=== PATIENT | female | born 1955 | race Hispanic/Latino ===

== ENCOUNTER 2018-11-08 17:59 | Inpatient (IN) | payer OTHER ==
--- NOTE | 2018-11-08 20:28 | RAD REPORT ---
EXAM DESCRIPTION: CT - Facial Bones W/ Mpr - 11/08/2018 8:15 pm CLINICAL HISTORY: Facial injury TECHNIQUE: Computed axial tomography of the face was obtained. Coronal and sagittal reconstruction w as performed. All CT scans are performed using dose optimization technique as appropriate and may include automated exposure control or mA/KV adjustment according to patient size. FINDINGS: A fracture is not seen. A TMJ dislocation is not noted. The globes are intact. Fluid this present within the sphenoid sinus IMPRESSION: Negative for a facial fracture. Acute sphenoid sinusitis
--- NOTE | 2018-11-08 20:33 | RAD REPORT ---
EXAM DESCRIPTION: CT - Head C Spine Mpr Wo Con - 11/08/2018 8:15 pm CLINICAL HISTORY: Head and neck injury status post fall. Head and neck pain COMPARISON: 2016 MRI cervical spine TECHNIQUE: Computed axial tomography of the head and cervical spine was obtained. Sagittal and coronal reconstruction was performed. All CT scans are performed using dose optimization technique as appropriate and may include automated exposure control or mA/KV adjustment according to patient size. FINDINGS: An intracranial bleed is not seen. The ventricles are normal in caliber. An extra-axial fl uid collection is not noted. A cervical fracture is not visualized. No dislocation is noted. Mild anterior subluxation C3 on C4 wi thout significant change IMPRESSION: No acute intracranial abnormality is seen. A cervical fracture is not visualized. If the patient continues to have symptoms to suggest intracra nial /spinal cord pathology then MRI would be recommended
--- NOTE | 2018-11-08 21:03 | RAD REPORT ---
EXAM DESCRIPTION: RAD - Knee Right 3 View - 11/08/2018 8:53 pm CLINICAL HISTORY: Right knee pain FINDINGS: No fracture or dislocation is seen. The bones are osteoporotic mild to moderate osteoarthr itis. Edema is present within the soft tissues If the patient continues have symptoms to suggest an occult fracture, ligamentous or meniscal injury then an MRI would be recommended.
[2018-11-08 21:15] LABS: Absolute Lymphocytes (CBC) 3.7 K/uL (0.7-4.9); Absolute Monocytes 1.5 K/uL (0.1-1.3); Absolute Neutrophil 7.5 K/uL (1.8-8.0); Basophils % 0.8 % (0-1.3); Eosinophils % 2.2 % (0-4.4); Hematocrit 39.8 % (36.0-45.0); Lymphocytes % 28.3 % (15.3-44.8); MPV 8.8 fL (7.6-11.3); Monocytes % 11.2 % (3.3-12.3); RBC Red Blood Cell Count 4.66 M/uL (3.86-4.86)
[2018-11-08] MEDS ORDERED: KETOROLAC 30 MG/ML INJ ONE (21:16)
[2018-11-08 21:25] LABS: Protime INR 1.08
[2018-11-08 21:45] LABS: ALT/SGPT 60 U/L (12-78); AST/SGOT 54 U/L (15-37); Albumin 3.7 g/dL (3.4-5.0); Alkaline Phosphatase 116 U/L (45-117); BUN Blood Urea Nitrogen 20 mg/dL (7-18); Bicarbonate 28 mmol/L (21-32); Bilirubin Direct 0.3 mg/dL (0-0.2); Glucose Level 159 mg/dL (74-106); Magnesium 1.9 mg/dL (1.8-2.4); NT PRO-BNP 172 pg/mL (<125); Potassium 4.1 mmol/L (3.5-5.1); Protein, Total 7.9 g/dL (6.4-8.2); Sodium Level 136 mmol/L (136-145); Troponin (Emerg Dept Use Only) < 0.02 ng/mL (0.0-0.045)
--- NOTE | 2018-11-08 23:05 | ER ---
Nurse's Notes [facility] Name: Lucia Naidu Age: 63 yrs Sex: Female : 1955 Arrival Date: 11/08/2018 Time: 18:04 Bed 18 Private MD: Diagnosis: Sepsis due to Escherichia coli [E. coli];Cystitis, unspecified without hematuria Presentation: 11/08 18:23 Presenting complaint: Dizziness and frequent falls x 1 month. Pt reports dizziness is hb getting worse each day. Daughter noticed slurred speech and confusion that began 5 days ago. - arm drift, - facial droop, mild slurred speech noted. Transition of care: patient was not received from another setting of care. Onset of symptoms was October 11, 2018. Risk Assessment: Do you want to hurt yourself or someone else? Patient reports no desire to harm self or others. Care prior to arrival: None. 18:23 Method Of Arrival: Wheelchair hb 18:23 Acuity: BEN 3 hb 19:53 Initial Sepsis Screen: Does the patient meet any 2 criteria? No. Patient's initial ed1 sepsis screen is negative. Does the patient have a suspected source of infection? No. Patient's initial sepsis screen is negative. Historical: - Allergies: 18:26 Codeine; hb 18:26 Morphine; hb - Immunization history:: Adult Immunizations up to date. - Social history:: Smoking status: Patient/guardian denies using tobacco, Patient/guardian denies using alcohol, street drugs. - Ebola Screening: : No symptoms or risks identified at this time. - Family history:: not pertinent. - Hospitalizations: : No recent hospitalization is reported. Screenin:53 Abuse screen: Denies threats or abuse. Denies injuries from another. Nutritional ed1 screening: No deficits noted. Tuberculosis screening: No symptoms or risk factors identified. Fall Risk Fall in past 12 months (25 points). No secondary diagnosis (0 pts). IV access (20 points). Ambulatory Aid- Crutches/Cane/Walker (15 pts). Gait- Weak (10 pts.). Mental Status- Oriented to own ability (0 pts). Total Duffy Fall Scale indicates High Risk Score (45 or more points). Fall prevention measures have been instituted. Side Rails Up X 2 Frequent Obs/Assessments Occuring Family Present and informed to notify staff if the need to leave the bedside As available patient and family educated on Fall Prevention Program and Strategies. Assessment: 19:53 General: Appears in no apparent distress. Behavior is calm, cooperative. Pain: Denies ed1 pain. Neuro: Level of Consciousness is awake, alert, obeys commands, Oriented to person, place, time, situation, Glove Examiner are equal bilaterally Moves all extremities. Weakness Gait is weak. Speech is normal, Facial symmetry appears normal, Pupils are PERRLA, Reports dizziness, weakness. Cardiovascular: Denies chest pain, Heart tones S1 S2 present. Respiratory: Airway is patent Respiratory effort is even, unlabored, Respiratory pattern is regular, symmetrical, Breath sounds are clear bilaterally. Denies cough, shortness of breath. GI: No signs and/or symptoms were reported involving the gastrointestinal system. : No signs and/or symptoms were reported regarding the genitourinary system. EENT: No signs and/or symptoms were reported regarding the EENT system. Derm: Skin is intact, is healthy with good turgor, Skin is dry, Skin is normal, Skin temperature is warm Bruising that is green, yellow, on right knee. Musculoskeletal: Circulation, motion, and sensation intact. Range of motion: intact in all extremities, Swelling present in right knee. 21:07 Reassessment: Patient appears in no apparent distress at this time. Patient and/or ed1 family updated on plan of care and expected duration. Pain level reassessed. Patient is alert, oriented x 3, equal unlabored respirations, skin warm/dry/pink. Pt reports pain to right knee. 22:34 Reassessment: Patient appears in no apparent distress at this time. Patient and/or ed1 family updated on plan of care and expected duration. Pain level reassessed. Patient is alert, oriented x 3, equal unlabored respirations, skin warm/dry/pink. Patient states feeling better. Patient states symptoms have improved. 11/09 00:47 Reassessment: Patient appears in no apparent distress at this time. Patient and/or ed1 family updated on plan of care and expected duration. Pain level reassessed. Patient is alert, oriented x 3, equal unlabored respirations, skin warm/dry/pink. Patient states feeling better. Patient states symptoms have improved. 02:00 Reassessment: Patient appears in no apparent distress at this time. No changes from ed1 previously documented assessment. Patient and/or family updated on plan of care and expected duration. Pain level reassessed. Patient is alert, oriented x 3, equal unlabored respirations, skin warm/dry/pink. Vital Signs: 11/08 18:25 BP 118 / 67; Pulse 73; Resp 16; Temp 98.2; Pulse Ox 100% on R/A; Pain 0/10; hb 21:07 BP 91 / 63; Pulse 63; Resp 19; Pulse Ox 93% on R/A; Pain 6/10; ed1 22:34 Pulse 65; Resp 18; Pulse Ox 95% on R/A; Pain 3/10; ed1 03 00:07 BP 131 / 68; Pulse 70; Resp 16; Pulse Ox 99% on R/A; mt 00:47 BP 108 / 67; Pulse 64; Resp 18; Pulse Ox 95% on R/A; Pain 2/10; ed1 ED Course: 11/08 18:04 Patient arrived in ED. rg4 18:25 Triage completed. hb 18:25 Arm band placed on. hb 19:00 Maddie Rene MD is Attending Physician. ma2 19:00 Rebecca Cook RN is Primary Nurse. ed1 19:41 Inserted saline lock: 22 gauge in left forearm, using aseptic technique. Blood mt collected. 19:53 Patient has correct armband on for positive identification. Placed in gown. Bed in low ed1 position. Call light in reach. Side rails up X2. Adult w/ patient. equipment monitor phototypesetting on. Pulse ox on. NIBP on. Warm blanket given. 20:15 CT completed. Patient tolerated procedure well. Patient moved back from CT. pa 23:04 Yosvany Leos MD is Hospitalizing Provider. ma2 23:17 Chest Single View In Process Unspecified. EDMS 03 00:47 Awaiting bed assignment. ed1 00:47 No provider procedures requiring assistance completed. Patient admitted, IV remains in ed1 place. intact, No redness/swelling at site. 02:00 Resting quietly. Awaiting bed assignment. ed1 Administered Medications: 11/08 21:07 Drug: TORadol 30 mg Route: IVP; Site: left forearm; ed1 21:45 Follow up: Response: No adverse reaction; Pain is decreased ed1 23:11 Drug: NS 0.9% 1000 ml Route: IV; Rate: 1 bolus; Site: left forearm; ed1 11/09 02:01 Follow up: IV Status: Completed infusion; IV Intake: 1000ml ed1 11/08 23:11 Drug: Rocephin 1 grams Route: IV; Rate: calculated rate; Site: left forearm; ed1 23:45 Follow up: Response: No adverse reaction; IV Status: Completed infusion ed1 Intake: 11/09 02:01 IV: 1000ml; Total: 1000ml. ed1 Outcome: 11/08 23:05 Decision to Hospitalize by Provider. ma2 11/09 03:53 Admitted to Tele accompanied by nurse, family with patient, via wheelchair, room 403, ed1 with chart, Report called to REAL Pineda Condition: stable Discharge instructions given to patient, family, Instructed on the need for admit, Demonstrated understanding of instructions. 03:54 Patient left the ED. ed1 Signatures: Dispatcher [employer] EDRebecca Ly RN RN ed1 Tavia Rojas RN RN hb Garcia, Rubi 4 Lamont Christensen Moriah Maddie Collier MD MD ma2
--- NOTE | 2018-11-08 23:06 | EDPHYS ---
Physician Documentation [facility] Name: Lucia Naidu Age: 63 yrs Sex: Female : 1955 Arrival Date: 11/08/2018 Time: 18:04 Bed 18 Private MD: ED Physician Maddie Rene HPI: 11/08 21:49 This 63 yrs old Female presents to ER via Wheelchair with complaints of ma2 Altered Mental Status, Trouble Walking, General Weakness. 21:49 The patient presents with falls right leg weakness . Onset: The symptoms/episode ma2 began/occurred gradually, 2 week(s) ago. Possible causes: CVA or TIA. Associated signs and symptoms: Pertinent negatives: abdominal pain, blurred vision, chest pain, combativeness. Current symptoms: In the emergency department the patient's symptoms are unchanged from the initial presentation. The patient has not experienced similar symptoms in the past. Historical: - Allergies: 18:26 Codeine; hb 18:26 Morphine; hb - Immunization history:: Adult Immunizations up to date. - Social history:: Smoking status: Patient/guardian denies using tobacco, Patient/guardian denies using alcohol, street drugs. - Ebola Screening: : No symptoms or risks identified at this time. - Family history:: not pertinent. - Hospitalizations: : No recent hospitalization is reported. ROS: 21:49 Constitutional: Negative for fever, chills, and weight loss, Cardiovascular: Negative ma2 for chest pain, palpitations, and edema, Respiratory: Negative for shortness of breath, cough, wheezing, and pleuritic chest pain, Abdomen/GI: Negative for abdominal pain, nausea, diarrhea, and constipation. 21:49 Neuro: Positive for falls, possible right LE weakness . 21:49 All other systems are negative. Exam: 21:49 Constitutional: This is a well developed, well nourished patient who is awake, alert, ma2 and in no acute distress. Chest/axilla: Normal chest wall appearance and motion. Nontender with no deformity. No lesions are appreciated. Cardiovascular: Regular rate and rhythm with a normal S1 and S2. No gallops, murmurs, or rubs. Normal PMI, no JVD. No pulse deficits. Respiratory: Lungs have equal breath sounds bilaterally, clear to auscultation and percussion. No rales, rhonchi or wheezes noted. No increased work of breathing, no retractions or nasal flaring. Abdomen/GI: Soft, non-tender, with normal bowel sounds. No distension or tympany. No guarding or rebound. No evidence of tenderness throughout. MS/ Extremity: Pulses equal, no cyanosis. Neurovascular intact. Full, normal range of motion. Neuro: Awake and alert, GCS 15, oriented to person, place, time, and situation. Cranial nerves II-XII grossly intact. Motor strength 5/5 in all extremities. Sensory grossly intact. Cerebellar exam normal. Normal gait. 21:49 Skin: has abrasion to right knee and left elbow left shoulder . ma2 Vital Signs: 18:25 BP 118 / 67; Pulse 73; Resp 16; Temp 98.2; Pulse Ox 100% on R/A; Pain 0/10; hb 21:07 BP 91 / 63; Pulse 63; Resp 19; Pulse Ox 93% on R/A; Pain 6/10; ed1 22:34 Pulse 65; Resp 18; Pulse Ox 95% on R/A; Pain 3/10; ed1 03/08 00:07 BP 131 / 68; Pulse 70; Resp 16; Pulse Ox 99% on R/A; mt 00:47 BP 108 / 67; Pulse 64; Resp 18; Pulse Ox 95% on R/A; Pain 2/10; ed1 MDM: 03 19:00 Patient medically screened. ma2 21:49 Differential Diagnosis: CVA, electrolyte abnormality, hypoglycemia, pneumonia, UTI, ma2 volume depletion. 22:59 Data reviewed: vital signs, nurses notes. ma2 23:03 Counseling: I had a detailed discussion with the patient and/or guardian regarding: the dc2 historical points, exam findings, and any diagnostic results supporting the discharge/admit diagnosis, the presence of at least one elevated blood pressure reading (>120/80) during this emergency department visit, the need for further work-up and treatment in the hospital. Response to treatment: the patient's symptoms have markedly improved after treatment. ED course: has UTI SIRS discussed with dr. bryson . 11/08 20:03 Order name: Urine Dipstick--Ancillary (enter results) ag4 11/08 21:21 Order name: CBC with Automated Diff; Complete Time: 22:04 EDMS 11/08 21:26 Order name: Protime (+INR); Complete Time: 22:04 EDMS 11/08 21:45 Order name: Basic Metabolic Panel; Complete Time: 22:04 EDMS 11/08 21:45 Order name: Liver (Hepatic) Function; Complete Time: 22:04 EDMS 11/08 21:46 Order name: Troponin (Emerg Dept Use Only); Complete Time: 22:04 EDMS 11/08 21:46 Order name: NT PRO-BNP; Complete Time: 22:04 EDMS 11/08 20:29 Order name: CT; Complete Time: 22:04 EDMS 11/08 20:35 Order name: CT; Complete Time: 22:04 EDMS 11/08 21:04 Order name: RAD; Complete Time: 22:04 EDMS 11/08 21:46 Order name: Magnesium; Complete Time: 22:04 EDMS 11/08 23:14 Order name: Head C Spine Mpr Wo Con EDMS 11/08 23:49 Order name: Basic Metabolic Panel EDMS 11/08 23:49 Order name: Liver (Hepatic) Function EDMS 11/08 23:49 Order name: Troponin (Emerg Dept Use Only) EDMS 11/08 23:50 Order name: NT PRO-BNP EDMS 11/08 23:50 Order name: Magnesium EDMS 11/08 23:50 Order name: CBC with Automated Diff EDMS 11/08 23:50 Order name: Protime (+INR) EDMS 11/08 19:48 Order name: EKG; Complete Time: 19:49 ma2 11/08 19:48 Order name: Cardiac monitoring; Complete Time: 19:50 ma2 11/08 19:48 Order name: EKG - Nurse/Tech; Complete Time: 20:05 ma2 11/08 19:48 Order name: IV Saline Lock; Complete Time: 19:50 ma2 11/08 19:48 Order name: Labs collected and sent; Complete Time: 19:50 ma2 11/08 19:48 Order name: O2 Per Protocol; Complete Time: 19:50 ma2 11/08 19:48 Order name: O2 Sat Monitoring; Complete Time: 19:50 ma2 11/08 19:48 Order name: Urine Dipstick-Ancillary (obtain specimen); Complete Time: 20:09 ma2 11/08 23:14 Order name: Facial Bones W/ Mpr EDMS 11/08 23:15 Order name: Knee Right 3 View EDMS 11/08 23:17 Order name: Chest Single View EDMS Administered Medications: 21:07 Drug: TORadol 30 mg Route: IVP; Site: left forearm; ed1 21:45 Follow up: Response: No adverse reaction; Pain is decreased ed1 23:11 Drug: NS 0.9% 1000 ml Route: IV; Rate: 1 bolus; Site: left forearm; ed1 11/09 02:01 Follow up: IV Status: Completed infusion; IV Intake: 1000ml ed1 11/08 23:11 Drug: Rocephin 1 grams Route: IV; Rate: calculated rate; Site: left forearm; ed1 23:45 Follow up: Response: No adverse reaction; IV Status: Completed infusion ed1 Disposition: 11/08/18 23:05 Hospitalization ordered by Yosvany Bryson for Inpatient Admission. Preliminary diagnosis are Sepsis due to Escherichia coli [E. coli], Cystitis, unspecified without hematuria. - Bed requested for Telemetry/MedSurg (Inpatient). - Status is Inpatient Admission. ed1 - Condition is Stable. - Problem is new. - Symptoms are unchanged. UTI on Admission? Yes Signatures: Dispatcher [employer] EDMS Vania Joshi RN RN kl Riggs, Erika, RN RN ed1 Tavia Rojas RN RN hb Alzahri, Mohammad, MD MD ma2 Corrections: (The following items were deleted from the chart) 23:43 19:49 Head C Spine MPR Wo Con+CT.RAD.BRZ ordered. EDCA EDMS 23:45 19:49 Facial Bones W/ MPR+CT.RAD.BRZ ordered. EDMS EDMS 23:46 19:49 Chest Single View+RAD.RAD.BRZ ordered. EDMS EDMS 23:46 19:49 Knee Right 3 View+RAD.RAD.BRZ ordered. EDCA EDMS 23:52 19:49 BASIC METABOLIC PANEL+C.LAB.BRZ ordered. EDCA EDMS 23:52 19:49 PROBNP+C.LAB.BRZ ordered. EDCA EDMS 23:55 19:49 CBC+H.LAB.BRZ ordered. EDCA EDMS 23:55 19:49 HEPATIC FUNCTION+C.LAB.BRZ ordered. EDMS EDMS 23:55 19:49 MAGNESIUM+C.LAB.BRZ ordered. [facility] ED[facility] 23:55 19:49 PROTIME (+INR)+COAG.LAB.BRZ ordered. [facility] 23:55 19:49 TROPONIN (EMERG DEPT USE ONLY)+C.LAB.BRZ ordered. [facility] 11/09 03:10 11/08 23:05 Hospitalization Ordered by Yosvany Bryson MD for Inpatient Admission. kl Preliminary diagnosis is Sepsis due to Escherichia coli [E. coli]; Cystitis, unspecified without hematuria. Bed requested for Telemetry/MedSurg (Inpatient). Status is Inpatient Admission. Condition is Stable. Problem is new. Symptoms are unchanged. UTI on Admission? Yes. ma2 11/09 03:54 03:10 11/08/2018 23:05 Hospitalization Ordered by Yosvany Bryson MD for Inpatient ed1 Admission. Preliminary diagnosis is Sepsis due to Escherichia coli [E. coli]; Cystitis, unspecified without hematuria. Bed requested for Telemetry/MedSurg (Inpatient). Status is Inpatient Admission. Condition is Stable. Problem is new. Symptoms are unchanged. UTI on Admission? Yes. kl
[2018-11-08] MEDS ORDERED: CEFTRIAXONE/SWI 1gm 1 GM/10 ML SYR ONE (23:16)
[2018-11-08] MEDS ORDERED: NA CHLORIDE 0.9% 1,000 ML ONE (23:16)
[2018-11-08 23:57] LABS: Urine Blood 2+ (NEG); Urine Glucose 1+ (NEG); Urine Protein 2+ (NEG)
[2018-11-09] MEDS ORDERED: ONDANSETRON 4 MG/2 ML VIAL IV PRN (03:58)
[2018-11-09] MEDS: NA CHLORIDE 0.9% 1,000 ML IV SCH ×3 (04:42→20:30)
[2018-11-09 04:54] VITALS: BMI 40.1
[2018-11-09] MEDS ORDERED: KETOROLAC 30 MG/ML INJ IV ONE (05:06)
[2018-11-09] MEDS ORDERED: D50W 25 GM/50 ML SYRINGE IV PRN (05:13)
[2018-11-09] MEDS ORDERED: GLUCAGON 1 MG/VIAL IM PRN (05:13)
--- NOTE | 2018-11-09 05:19 | P.HP ---
Certification for Inpatient Patient admitted to: Observation With expected LOS: <2 Midnights Practitioner: I am a practitioner with admitting privileges, knowledge of patient current condition, hospital course, and medical plan of care. Services: Services provided to patient in accordance with Admission requirements found in Title 42 Section 412.3 of the Code of Federal Regulations Patient History Date of Service: 11/09/18 Reason for admission: UTI, acute renal injury History of Present Illness: Ms Naidu is a 63 years old woman with history of DM II, HTN, neuropathy, who has had recurrent falls for the last month. She has bruises in both elbows and knees. The patient states that she lose her balance. She has a walker at home, but use only her cane. She denied palpitations, chest pain or SOB prior to the fall. Yesterday, the daughter got concern because the patient had facial drop and slurred speech. At arrival to emergency, the patient did not have those symptoms, however, she was clinically dry. Lab work remarkable for elevated creatinine, leukocytosis, abnormal UA consistent with UTI. CT head shows no acute abnormalities. Allergies codeine Adverse Reaction (Verified 11/09/18 03:58) Nausea/Vomiting morphine Adverse Reaction (Verified 11/09/18 03:58) Nausea/Vomiting Home Medications: Amitriptyline [Elavil*] 100 mg PO BEDTIME 11/09/18 Amlodipine [Norvasc*] 10 mg PO DAILY 11/09/18 Cyclobenzaprine [Flexeril*] 5 mg PO TID 11/09/18 Duloxetine [Cymbalta *] 60 mg PO DAILY 11/09/18 Fenofibrate [Tricor*] 67 mg PO DAILY 11/09/18 Gabapentin [Neurontin*] 300 mg PO TID 11/09/18 Glimepiride [Amaryl*] 2 mg PO BID 11/09/18 Lisinopril [Zestril] 40 mg PO DAILY 11/09/18 Meloxicam 7.5 mg PO DAILY 11/09/18 Metformin ER [Glucophage ER*] 850 mg PO BID 11/09/18 Pantoprazole [Protonix Tab*] 40 mg PO DAILY 11/09/18 - Past Medical/Surgical History Has patient received pneumonia vaccine in the past: Yes Diabetic: Yes -: DM -: HTN -: neuropathy -: cholecystectomy -: hysterectomy - Family History Father History Unknown: Yes Mother -: Heart disease, Diabetes Notes: had triple bypass - Social History Smoking Status: Never smoker Alcohol use: No CD- Drugs: No Caffeine use: Yes Place of Residence: Home Review of Systems 10-point ROS is otherwise unremarkable Physical Examination - Vital Signs Temperature: 97.0 F Blood Pressure: 114/67 Pulse: 69 Respirations: 18 Pulse Ox (%): 96 - Physical Exam General: Alert, In no apparent distress HEENT: Atraumatic, PERRLA, Mucous membr. moist/pink, EOMI, Sclerae nonicteric Neck: Supple, 2+ carotid pulse no bruit, No LAD, Without JVD or thyroid abnormality Respiratory: Clear to auscultation bilaterally, Normal air movement Cardiovascular: Regular rate/rhythm, Normal S1 S2 Gastrointestinal: Normal bowel sounds, No tenderness Musculoskeletal: No tenderness Integumentary: No rashes Neurological: Normal speech, Normal strength at 5/5 x4 extr, Normal tone, Normal affect Lymphatics: No axilla or inguinal lymphadenopathy - Studies Laboratory Data (last 24 hrs) 11/08/18 19:48: PT Cancelled, INR Cancelled 11/08/18 19:48: Magnesium Cancelled, Total Bilirubin Cancelled, AST Cancelled, ALT Cancelled, Alkaline Phosphatase Cancelled 11/08/18 19:48: WBC Cancelled, Hgb Cancelled, Hct Cancelled, Plt Count Cancelled 11/08/18 19:48: Sodium Cancelled, Potassium Cancelled, BUN Cancelled, Creatinine Cancelled, Glucose Cancelled 11/08/18 19:40: PT 12.7 H, INR 1.08 11/08/18 19:40: WBC 13.1 H, Hgb 13.1, Hct 39.8, Plt Count 279 11/08/18 19:40: Sodium 136, Potassium 4.1, BUN 20 H, Creatinine 2.11 H, Glucose 159 H, Magnesium 1.9, Total Bilirubin 1.0, AST 54 H, ALT 60, Alkaline Phosphatase 116 Assessment and Plan - Problems (Diagnosis) (1) Recurrent falls Current Visit: Yes Status: Acute (2) UTI (urinary tract infection) Current Visit: Yes Status: Acute Qualifiers: Urinary tract infection type: acute cystitis Hematuria presence: without hematuria Qualified Code(s): N30.00 - Acute cystitis without hematuria (3) Acute renal injury Current Visit: Yes Status: Acute (4) Diabetes mellitus Current Visit: Yes Status: Acute Qualifiers: Diabetes mellitus type: type 2 Diabetes mellitus shelter insulin use: without exterminator use Diabetes mellitus complication status: with neurologic complications Diabetes mellitus complication detail: with unspecified neuropathy Qualified Code(s): E11.40 - Type 2 diabetes mellitus with diabetic neuropathy, unspecified (5) HTN (hypertension) Current Visit: Yes Status: Acute Qualifiers: Hypertension type: essential hypertension Qualified Code(s): I10 - Essential (primary) hypertension - Plan will admit the patient due to recurrent fall, acute renal injury due to volume depletion, and UTI. Will start empiric IV antibiotics, continue IV fluids, consult PT. - Advance Directives Does patient have a Living Will: No Does patient have a Durable POA for Healthcare: No - Code Status/Comfort Care Code Status Assessed: Yes Code Status: Full Code
[2018-11-09] MEDS: INSULIN -REGULAR HUMAN 50 UNIT/0.5 ML ML SQ SCH ×4 (07:30→20:30)
[2018-11-09 07:39] LABS: Absolute Lymphocytes (CBC) 2.6 K/uL (0.7-4.9); Absolute Neutrophil 4.5 K/uL (1.8-8.0); Basophils % 0.7 % (0-1.3); Eosinophils % 3.8 % (0-4.4); Hematocrit 36.1 % (36.0-45.0); Lymphocytes % 30.6 % (15.3-44.8); MPV 8.5 fL (7.6-11.3); Monocytes % 11.5 % (3.3-12.3); RBC Red Blood Cell Count 4.28 M/uL (3.86-4.86)
[2018-11-09 07:44] LABS: Potassium 3.6 mmol/L (3.5-5.1)
[2018-11-09] MEDS: ENOXAPARIN 30 MG/0.3 ML SQ SCH (08:12)
--- NOTE | 2018-11-09 08:12 | RAD REPORT ---
EXAM DESCRIPTION: RAD - Chest Single View - 11/08/2018 10:29 pm CLINICAL HISTORY: PAIN Chest pain. COMPARISON: No comparisons FINDINGS: Portable technique limits examination quality. The lungs are grossly clear. The heart is normal in size. No displaced fractures. IMPRESSION: No acute intrathoracic process suspected.
[2018-11-09] MEDS ORDERED: CEFTRIAXONE 1 GM/NS 50 ML 1 GM/50 ML BAG IV SCH (09:00)
[2018-11-09 11:12] LABS: Urine Appearance TURBID; Urine Blood NEGATIVE (NEG); Urine Color RED; Urine Glucose TRACE (NEG); Urine Protein 1+ (NEG); Urine Specific Gravity >=1.030 (1.005-1.030)
[2018-11-09 11:26] LABS: Urine Microscopic Reflex ORDER UMIC
[2018-11-09 11:38] LABS: Urine Bacteria >50 /HPF (<20); Urine Bilirubin 1+ (NEG); Urine Culture Reflex Order NOT NEEDED; Urine Mucus MOD /HPF (NONE SEEN)
[2018-11-09] MEDS: HYDROCODONE/APAP 7.5/325 MG TAB PO PRN ×2 (12:53→23:00)
--- NOTE | 2018-11-09 13:42 | EKG ---
Test Date: 2018-11-08 Test Time: 20:01:47 Air Pollution Auditor: NIALL MEASUREMENT RESULTS: Intervals: Rate: 71 IL: 184 QRSD: 88 QT: 420 QTc: 456 [place]: P: 41 [place]: 184 QRS: 1 T: 64 INTERPRETIVE STATEMENTS: Normal sinus rhythm Cannot rule out Anterior infarct, age undetermined Abnormal ECG No previous ECG available for comparison Electronically Signed On 11-09-18 13:41:55 SWIMMING COACH by Chris King
[2018-11-09] MEDS: GABAPENTIN 300 MG CAP PO SCH ×2 (14:41→20:28)
[2018-11-09] MEDS ORDERED: POTASSIUM CL SA 10 MEQ TAB PO ONE (16:00)
[2018-11-09] MEDS: CEFTRIAXONE/SWI 1gm 1 GM/10 ML SYR IV SCH (17:36)
--- NOTE | 2018-11-09 18:16 | PN ---
Date of Progress Note: 11/09/2018 Subjective: The patient was seen and examined. Chart reviewed and case discussed with RN. The daniela ent complaining of pain on her lip from the fall, but she states that her speech is normal. She does not have any word-finding difficulty. Medications: List reviewed. Physical Examination: Vital Signs: Temperature 96.8, heart rate 79, blood pressure 118/62, respirations 20, O2 94% on room air. General: Awake, alert, and oriented x3, not in any acute distress, ill-appearing, obese female. BMI 40. CV: S1, S2. Regular rate and rhythm. Peripheral pulses present. Respiratory: Moving air well bilaterally. No wheezing or stridor. No use of accessory muscles. Gastrointestinal: Abdomen is soft, nontender, nondistended. Positive bowel sounds. Extremities: No clubbing, cyanosis, or edema. Neurologic: Nonfocal. Laboratory Data: Sodium 138, potassium 3.6, chloride 104, CO2 25, BUN 24, creatinine 2.21, glucose 2 05, calcium 7.9. WBC 8.4, H and H 12.2 and 36.1, platelets 226. X-ray of the right knee shows no fracture or dislocation. Mild to moderate osteoarthritis. Facial b one CT showed negative for facial fracture, acute sphenoid sinusitis. Head CT and cervical spine gadiel ws no acute intracranial abnormality. Cervical fracture not visualized. Chest x-ray, no acute intra thoracic process. Assessment And Plan: A 63-year-old female with, 1.Recurrent falls. We will keep on fall precautions. We will consult PT, unclear etiology. 2.Urinary tract infection, acute cystitis without hematuria. We will continue on IV antibiotics and follow up on culture results. 3.Acute kidney injury. Baseline creatinine apparently normal from previous labs. We will continue to monitor trending down. We will continue with IV fluids, likely due to prerenal azotemia and dehyd ration. 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 We will continue slidi ng scale insulin. 5.Essential hypertension, stable. Resume home medications as appropriate. 6.Musculoskeletal pain all over due to fall. We will give p.r.n. pain medications. No fracture see n on imaging studies. Continue with fall precautions. Plan: DVT prophylaxis with Lovenox renally dosed. The patient does not have any facial droop or slu rred speech. We will continue to hydrate. The patient may benefit from home health with PT versus s killed nursing facility placement. /LEXUS Voice ID: [id number] Report ID: [id number]
[2018-11-09] MEDS: GLIMEPIRIDE 2 MG TABLET PO SCH (20:28)
[2018-11-09] MEDS: AMITRIPTYLINE 50 MG TAB PO SCH (20:28)
[2018-11-10] MEDS: NA CHLORIDE 0.9% 1,000 ML IV SCH ×3 (05:53→21:13)
[2018-11-10] MEDS: HYDROCODONE/APAP 7.5/325 MG TAB PO PRN ×3 (06:22→18:42)
[2018-11-10 06:25] LABS: Absolute Lymphocytes (CBC) 2.7 K/uL (0.7-4.9); Absolute Monocytes 0.9 K/uL (0.1-1.3); Absolute Neutrophil 2.9 K/uL (1.8-8.0); Basophils % 0.5 % (0-1.3); Eosinophils % 5.3 % (0-4.4); Hematocrit 33.7 % (36.0-45.0); Lymphocytes % 38.9 % (15.3-44.8); MPV 8.1 fL (7.6-11.3); Monocytes % 12.5 % (3.3-12.3); RBC Red Blood Cell Count 4.01 M/uL (3.86-4.86)
[2018-11-10] MEDS ORDERED: PANTOPRAZOLE 40MG TABLET PO SCH (06:30)
[2018-11-10 06:43] LABS: Potassium 3.9 mmol/L (3.5-5.1)
[2018-11-10] MEDS: INSULIN -REGULAR HUMAN 50 UNIT/0.5 ML ML SQ SCH ×4 (07:30→21:00)
[2018-11-10] MEDS ORDERED: FENOFIBRATE 67 MG PO SCH (09:00)
[2018-11-10] MEDS ORDERED: HOME MED 1 EA UNK (Lisinopril [Zestril] 40 MG) PO SCH (09:00)
[2018-11-10] MEDS ORDERED: POTASSIUM CL SA 10 MEQ TAB PO ONE (09:00)
[2018-11-10] MEDS: PANTOPRAZOLE 40MG TABLET PO SCH (09:25)
[2018-11-10] MEDS: GABAPENTIN 300 MG CAP PO SCH ×3 (09:25→21:11)
[2018-11-10] MEDS: DULOXETINE 20 MG CAP PO SCH (09:25)
[2018-11-10] MEDS: AMLODIPINE 10 MG TAB PO SCH (09:25)
[2018-11-10] MEDS: GLIMEPIRIDE 2 MG TABLET PO SCH ×2 (09:25→21:11)
[2018-11-10] MEDS: ENOXAPARIN 30 MG/0.3 ML SQ SCH (09:26)
[2018-11-10] MEDS: METOPROLOL TAR 50 MG TAB PO SCH (09:26)
--- NOTE | 2018-11-10 12:14 | P.PN ---
Subjective Date of Service: 11/10/18 Chief Complaint: UTI, acute renal injury Patient seen and examined at bedside with RN. Chart reviewed. Case discussed with patient's family at bedside. Currently UA was contaminated the straight catheterization has been requested. Patient has no complaints to offer overnight. Has been refusing blood sugar checks in the hospital. Educated on the importance of checking blood sugar along with urinary catheterization for urine sample. Patient now in agreement to get the lab work done along with straight catheterization Review of Systems 10-point ROS is otherwise unremarkable Physical Examination - Vital Signs Temperature: 97.4 F Blood Pressure: 135/74 Pulse: 78 Respirations: 16 Pulse Ox (%): 96 - Physical Exam General: Alert, In no apparent distress HEENT: Atraumatic, PERRLA, EOMI Neck: Supple, JVD not distended Respiratory: Clear to auscultation bilaterally, Normal air movement Cardiovascular: Regular rate/rhythm, Normal S1 S2 Gastrointestinal: Normal bowel sounds, No tenderness Musculoskeletal: No tenderness Integumentary: No rashes Neurological: Normal speech, Normal tone, Normal affect Lymphatics: No axilla or inguinal lymphadenopathy - Studies Laboratory Data (last 24 hrs) 11/10/18 05:59: Sodium 140, Potassium 3.9, BUN 18, Creatinine 1.15 D, Glucose 218 H 11/10/18 05:59: WBC 6.8 D, Hgb 11.3 L, Hct 33.7 L, Plt Count 218 Medications List Reviewed: Yes Assessment And Plan - Current Problems (Diagnosis) (1) UTI (urinary tract infection) Current Visit: Yes Status: Acute Plan: UA with UTI. -currenltly in IV abx will continue -Urine Culture pending at this time Qualifiers: Urinary tract infection type: acute cystitis Hematuria presence: without hematuria Qualified Code(s): N30.00 - Acute cystitis without hematuria (2) Acute renal injury Current Visit: Yes Status: Acute Plan: 2.2 to UTI vs HTN and DM -IV fluids -BUN.CR improved today (3) Diabetes mellitus Current Visit: Yes Status: Chronic Qualifiers: Diabetes mellitus type: type 2 Diabetes mellitus halfway insulin use: without manager intermediate use Diabetes mellitus complication status: with neurologic complications Diabetes mellitus complication detail: with unspecified neuropathy Qualified Code(s): E11.40 - Type 2 diabetes mellitus with diabetic neuropathy, unspecified (4) HTN (hypertension) Current Visit: Yes Status: Chronic Qualifiers: Hypertension type: essential hypertension Qualified Code(s): I10 - Essential (primary) hypertension - Plan Awaiting clinical improvement. Will continue with IV antibiotics at this time. Urine cultures pending at this time will follow up with results. Discharge Plan: Home Plan to discharge in: 48 Hours - Code Status/Comfort Care Code Status Assessed: Yes Critical Care: No
[2018-11-10] MEDS: CEFTRIAXONE/SWI 1gm 1 GM/10 ML SYR IV SCH (16:01)
[2018-11-10] MEDS: AMITRIPTYLINE 50 MG TAB PO SCH (21:10)
[2018-11-11] MEDS: HYDROCODONE/APAP 7.5/325 MG TAB PO PRN ×2 (05:41→12:20)
[2018-11-11] MEDS: NA CHLORIDE 0.9% 1,000 ML IV SCH ×2 (05:42→11:58)
[2018-11-11 06:13] LABS: Potassium 4.2 mmol/L (3.5-5.1)
[2018-11-11] MEDS: INSULIN -REGULAR HUMAN 50 UNIT/0.5 ML ML SQ SCH ×2 (07:30→11:30)
[2018-11-11] MEDS: ENOXAPARIN 30 MG/0.3 ML SQ SCH (08:25)
[2018-11-11] MEDS: GLIMEPIRIDE 2 MG TABLET PO SCH (08:25)
[2018-11-11] MEDS: AMLODIPINE 10 MG TAB PO SCH (08:25)
[2018-11-11] MEDS: PANTOPRAZOLE 40MG TABLET PO SCH (08:25)
[2018-11-11] MEDS: GABAPENTIN 300 MG CAP PO SCH (08:25)
[2018-11-11] MEDS: METOPROLOL TAR 50 MG TAB PO SCH (08:25)
[2018-11-11] MEDS: DULOXETINE 20 MG CAP PO SCH (08:34)
[2018-11-11 09:23] VITALS: O2SAT 97
[2018-11-11 12:17] VITALS: BP 99/63; TEMP 97.4
--- NOTE | 2018-11-11 13:04 | P.DS ---
Admission Date: 11/10/18 Discharge Date: 11/11/18 Disposition: ROUTINE DISCHARGE Discharge Condition: GOOD Reason for Admission: UTI, acute renal injury - Problems (1) UTI (urinary tract infection) Current Visit: Yes Status: Acute Qualifiers: Urinary tract infection type: acute cystitis Hematuria presence: without hematuria Qualified Code(s): N30.00 - Acute cystitis without hematuria (2) Acute renal injury Current Visit: Yes Status: Acute (3) Diabetes mellitus Current Visit: Yes Status: Chronic Qualifiers: Diabetes mellitus type: type 2 Diabetes mellitus [facility] insulin use: without [facility] use Diabetes mellitus complication status: with neurologic complications Diabetes mellitus complication detail: with unspecified neuropathy Qualified Code(s): E11.40 - Type 2 diabetes mellitus with diabetic neuropathy, unspecified (4) HTN (hypertension) Current Visit: Yes Status: Chronic Qualifiers: Hypertension type: essential hypertension Qualified Code(s): I10 - Essential (primary) hypertension Brief History of Present Illness: Ms Naidu is a 63 years old woman with history of DM II, HTN, neuropathy, who has had recurrent falls for the last month. She has bruises in both elbows and knees. The patient states that she lose her balance. She has a walker at home, but use only her cane. She denied palpitations, chest pain or SOB prior to the fall. Yesterday, the daughter got concern because the patient had facial drop and slurred speech. At arrival to emergency, the patient did not have those symptoms, however, she was clinically dry. Lab work remarkable for elevated creatinine, leukocytosis, abnormal UA consistent with UTI. CT head shows no acute abnormalities. Hospital Course: Overall during the hospital stay patient remained stable Into the hospital for recurrent falls and rule out of TIA. Patient had extensive workup including head CT and brain MRI were both within normal limits for a did a urine culture done with GI however initial culture was unable to be collected by micro and thus a repeat culture was done after starting of antibiotics which was falsely negative. Patient had marked improvement in her symptoms after she received IV antibiotics here in the hospital and thus was discharged home on oral antibiotics. Patient for recurrent falls did have physical therapy consulted here who recommended home health versus outpatient physical therapy for patient get her strength back. Patient did well overall while here in the hospital and thus was discharged home under stable condition to follow up with PCP along with Neurology in about 1-2 days post discharge. Patient was given a prescription for Levaquin and pro biotic to take home for her UTI for next 7 days. Vital Signs/Physical Exam: Temp Pulse Resp BP Pulse Ox 97.4 F 56 16 99/63 93 11/11/18 12:00 11/11/18 12:00 11/11/18 12:00 11/11/18 12:00 11/11/18 12:00 General: Alert, In no apparent distress HEENT: Atraumatic, PERRLA, EOMI Neck: Supple, JVD not distended Respiratory: Clear to auscultation bilaterally, Normal air movement Cardiovascular: Regular rate/rhythm, Normal S1 S2 Gastrointestinal: Normal bowel sounds, No tenderness Musculoskeletal: No tenderness Integumentary: No rashes Neurological: Normal speech, Normal tone, Normal affect Lymphatics: No axilla or inguinal lymphadenopathy Laboratory Data at Discharge: WBC 6.8 K/uL (4.3-10.9) D 11/10/18 05:59 Hgb 11.3 g/dL (12.0-15.0) L 11/10/18 05:59 Hct 33.7 % (36.0-45.0) L 11/10/18 05:59 Plt Count 218 K/uL (152-406) 11/10/18 05:59 PT 12.7 SECONDS (9.5-12.5) H 11/08/18 19:40 INR 1.08 11/08/18 19:40 Sodium 141 mmol/L (136-145) 11/11/18 05:46 Potassium 4.2 mmol/L (3.5-5.1) 11/11/18 05:46 BUN 11 mg/dL (7-18) 11/11/18 05:46 Creatinine 1.10 mg/dL (0.55-1.3) 11/11/18 05:46 Glucose 183 mg/dL (74-106) H 11/11/18 05:46 Magnesium 1.9 mg/dL (1.8-2.4) 11/08/18 19:40 Total Bilirubin 1.0 mg/dL (0.2-1.0) 11/08/18 19:40 AST 54 U/L (15-37) H 11/08/18 19:40 ALT 60 U/L (12-78) 11/08/18 19:40 Alkaline Phosphatase 116 U/L (45-117) 11/08/18 19:40 Home Medications: Amitriptyline [Elavil*] 100 mg PO BEDTIME 11/09/18 Amlodipine [Norvasc*] 10 mg PO DAILY 11/09/18 Cyclobenzaprine [Flexeril*] 5 mg PO TID 11/09/18 Duloxetine [Cymbalta *] 60 mg PO DAILY 11/09/18 Fenofibrate [Tricor*] 67 mg PO DAILY 11/09/18 Gabapentin [Neurontin*] 300 mg PO TID 11/09/18 Glimepiride [Amaryl*] 2 mg PO BID 11/09/18 Lisinopril [Zestril] 40 mg PO DAILY 11/09/18 Meloxicam 7.5 mg PO DAILY 11/09/18 Metformin ER [Glucophage ER*] 850 mg PO BID 11/09/18 Metoprolol Tartrate [Lopressor*] 50 mg PO DAILY 11/09/18 Pantoprazole [Protonix Tab*] 40 mg PO DAILY 11/09/18 Lactobacillus Acidophilus [Probiotic Acidophilus] 1.5 mg PO DAILY #10 capsule levoFLOXacin [Levaquin] 500 mg PO DAILY #7 tab 11/11/18 New Medications: Lactobacillus Acidophilus [Probiotic Acidophilus] 1.5 mg PO DAILY #10 capsule levoFLOXacin [Levaquin] 500 mg PO DAILY #7 tab Patient Discharge Instructions: Please f.u with PCP in 1 to 2 days post discharge. New medication. Levaquin 500mg Daily. Probiotic 1.5mg daily Diet: Regular Activity: Ad natalie
== END 2018-11-11 13:37 | disposition home or self-care (01) | DRG 690 ==
LOC: ER 17:59 → OBSVTOIN 11-09 02:33 → INTOOBSV 11-09 02:33 → ERHOLD 11-09 02:33 → 4TH 11-09 03:31 → OBSVTOIN 11-10 11:20
PROVIDERS: ADMIT Internal Medicine; ATTEND Family Medicine
DX: N30.00 Acute cystitis without hematuria (principal); N17.9 Acute kidney failure, unspecified; Z79.84 Long term (current) use of oral hypoglycemic drugs; I10 Essential (primary) hypertension; E11.40 Type 2 diabetes mellitus with diabetic neuropathy, unspecified; Z91.81 History of falling; Z88.5 Allergy status to narcotic agent; M19.90 Unspecified osteoarthritis, unspecified site
CPT/HCPCS: 36415; 70450; 70486; 71045; 72125; 76377; 80048; 80076; 81003; 81015; 82962; 83735; 83880; 84484; 85025; 85610; 87086; 87088; 93005; 96361; 96365; 96375; 97116; 97162; 99285; G0378; J0696; J1650; J7030

== ENCOUNTER 2018-12-17 18:27 | Emergency (ER) | payer OTHER ==
--- NOTE | 2018-12-17 21:18 | RAD REPORT ---
EXAM DESCRIPTION: RAD - Hip Left 2 View - 12/17/2018 9:04 pm CLINICAL HISTORY: Left hip pain FINDINGS: No fracture or dislocation is seen. If the patient continues to have symptoms to suggest an occult fracture MRI would be recommended
--- NOTE | 2018-12-17 21:22 | RAD REPORT ---
EXAM DESCRIPTION: RAD - Knee Right 3 View - 12/17/2018 9:04 pm CLINICAL HISTORY: Right knee pain FINDINGS: No fracture or dislocation is seen. The bones are osteoporotic. Moderate osteoarthritis involves the medial compartment
--- NOTE | 2018-12-17 21:24 | RAD REPORT ---
EXAM DESCRIPTION: RAD - Shoulder Left 2 View - 12/17/2018 9:07 pm CLINICAL HISTORY: Left shoulder pain FINDINGS: No fracture or dislocation is seen. Mild to moderate osteoarthritis involves the AC joint. Subchondral cysts are present within the humer al head
--- NOTE | 2018-12-17 21:28 | ER ---
Nurse's Notes [facility] Name: Lucia Naidu Age: 63 yrs Sex: Female : 1955 Arrival Date: 12/17/2018 Time: 18:28 Bed 28 Private MD: Diagnosis: Contusion of left hip;Sprain of other specified parts of knee Presentation: 12/17 18:38 Presenting complaint: Patient states: L shoulder and L hip pain that began 2 days ago ss after falling from a standing position. Transition of care: patient was not received from another setting of care. Onset of symptoms was December 15, 2018. Risk Assessment: Do you want to hurt yourself or someone else? Patient reports no desire to harm self or others. Initial Sepsis Screen: Does the patient meet any 2 criteria? No. Patient's initial sepsis screen is negative. Does the patient have a suspected source of infection? No. Patient's initial sepsis screen is negative. Care prior to arrival: None. 18:38 Method Of Arrival: Wheelchair ss 18:38 Acuity: BEN 3 ss Historical: - Allergies: 18:39 Codeine; ss 18:39 Morphine; ss - Immunization history:: Adult Immunizations up to date. - Social history:: Smoking status: Patient/guardian denies using tobacco. - Ebola Screening: : Patient denies exposure to infectious person Patient denies travel to an Ebola-affected area in the 21 days before illness onset. Screenin:25 Abuse screen: Denies threats or abuse. Denies injuries from another. Nutritional ca1 screening: No deficits noted. Tuberculosis screening: No symptoms or risk factors identified. Fall Risk None identified. Assessment: 19:25 General: Appears in no apparent distress. uncomfortable, Behavior is calm, cooperative, ca1 appropriate for age. Pain: Complains of pain in left hip Pain currently is 10 out of 10 on a pain scale. Pain began 2-3 days ago. Neuro: Level of Consciousness is awake, alert, obeys commands, Oriented to person, place, time, situation. Cardiovascular: Heart tones S1 S2 present Capillary refill < 3 seconds Patient's skin is warm and dry. Respiratory: Airway is patent Respiratory effort is even, unlabored, Respiratory pattern is regular, symmetrical, Breath sounds are clear bilaterally. GI: Abdomen is flat, non-distended, Bowel sounds present X 4 quads. Abd is soft and non tender X 4 quads. : No deficits noted. No signs and/or symptoms were reported regarding the genitourinary system. EENT: No deficits noted. No signs and/or symptoms were reported regarding the EENT system. Derm: Skin is intact, is healthy with good turgor, Skin is pink, warm \T\ dry. Musculoskeletal: Circulation, motion, and sensation intact. Capillary refill < 3 seconds, Range of motion: limited in left hip. 20:33 Reassessment: Patient appears in no apparent distress at this time. Patient and/or ca1 family updated on plan of care and expected duration. Pain level reassessed. Patient is alert, oriented x 3, equal unlabored respirations, skin warm/dry/pink. 21:15 Reassessment: Patient appears in no apparent distress at this time. Patient is alert, ca1 oriented x 3, equal unlabored respirations, skin warm/dry/pink. Vital Signs: 18:39 BP 98 / 67; Pulse 61; Resp 17; Temp 98.1(TE); Pulse Ox 95% on R/A; Weight 114.76 kg; ss Height 5 ft. 9 in. (175.26 cm); Pain 10/10; 19:25 BP 102 / 68; Pulse 59; Resp 18 S; Pulse Ox 97% on R/A; ca1 20:33 BP 105 / 65; Pulse 60; Resp 17 S; Pulse Ox 95% on R/A; ca1 21:15 BP 110 / 69; Pulse 62; Resp 19; Pulse Ox 96% on R/A; ca1 18:39 Body Mass Index 37.36 (114.76 kg, 175.26 cm) ED Course: 18:28 Patient arrived in ED. as 18:39 Triage completed. ss 18:39 Arm band placed on right wrist. ss 19:25 Patient has correct armband on for positive identification. Placed in gown. Bed in low ca1 position. Call light in reach. Side rails up X 1. Pulse ox on. NIBP on. Warm blanket given. 19:36 Ruben Regalado MD is Attending Physician. gs 20:15 Noemy Vizcaino, REAL is Primary Nurse. ca1 21:04 Hip Left 2 View XRAY In Process Unspecified. EDMS 21:04 Shoulder Left (2 View) XRAY In Process Unspecified. EDMS 21:04 Knee Right 3 View XRAY In Process Unspecified. EDMS 21:27 Chon Garibay MD is Referral Physician. 21:40 No provider procedures requiring assistance completed. Patient did not have IV access ca1 during this emergency room visit. Administered Medications: No medications were administered Outcome: 21:28 Discharge ordered by . gs 21:40 Discharged to home via wheelchair. ca1 21:40 Condition: stable 21:40 Discharge instructions given to patient, family, Instructed on discharge instructions, follow up and referral plans. medication usage, Demonstrated understanding of instructions, follow-up care, medications, Prescriptions given X 1. 21:40 Patient left the ED. ca1 Signatures: Dispatcher [employer] EDNell Robles Shelby, REAL RN Ruben Regalado MD MD Noemy Vizcaino RN RN ca1
--- NOTE | 2018-12-17 21:29 | EDPHYS ---
Physician Documentation [facility] Name: Lucia Naidu Age: 63 yrs Sex: Female : 1955 Arrival Date: 12/17/2018 Time: 18:28 Bed 28 Private MD: ED Physician Ruben Regalado HPI: 12/18 10:37 This 63 yrs old Female presents to ER via Wheelchair with complaints of gs Shoulder Pain, Hip Pain. 10:37 The patient or guardian complains of an injury. left shoulder. Context: The problem was gs sustained at home, resulted from a fall, The patient reports no obvious deformity. Onset: The symptoms/episode began/occurred 4 day(s) ago. Modifying factors: The symptoms are aggravated by movement. Associated signs and symptoms: Pertinent positives: pain swelling left hip, Pertinent negatives: chest pain. Severity of symptoms: At their worst the symptoms were moderate, in the emergency department the symptoms are unchanged. The patient has experienced similar episodes in the past, a few times. Historical: - Allergies: 12/17 18:39 Codeine; ss 18:39 Morphine; ss - Immunization history:: Adult Immunizations up to date. - Social history:: Smoking status: Patient/guardian denies using tobacco. - Ebola Screening: : Patient denies exposure to infectious person Patient denies travel to an Ebola-affected area in the 21 days before illness onset. ROS: 12/18 10:37 All other systems are negative. gs Exam: 10:37 Head/Face: Normocephalic, atraumatic. Eyes: Pupils equal round and reactive to light, gs extra-ocular motions intact. Lids and lashes normal. Conjunctiva and sclera are non-icteric and not injected. Cornea within normal limits. Periorbital areas with no swelling, redness, or edema. ENT: Nares patent. No nasal discharge, no septal abnormalities noted. Tympanic membranes are normal and external auditory canals are clear. Oropharynx with no redness, swelling, or masses, exudates, or evidence of obstruction, uvula midline. Mucous membranes moist. Neck: Trachea midline, no thyromegaly or masses palpated, and no cervical lymphadenopathy. Supple, full range of motion without nuchal rigidity, or vertebral point tenderness. No Meningismus. Chest/axilla: Normal chest wall appearance and motion. Nontender with no deformity. No lesions are appreciated. Cardiovascular: Regular rate and rhythm with a normal S1 and S2. No gallops, murmurs, or rubs. Normal PMI, no JVD. No pulse deficits. Respiratory: Lungs have equal breath sounds bilaterally, clear to auscultation and percussion. No rales, rhonchi or wheezes noted. No increased work of breathing, no retractions or nasal flaring. Abdomen/GI: Soft, non-tender, with normal bowel sounds. No distension or tympany. No guarding or rebound. No evidence of tenderness throughout. Back: No spinal tenderness. No costovertebral tenderness. Full range of motion. 10:37 Constitutional: The patient appears alert, awake, uncomfortable. 10:37 Musculoskeletal/extremity: ROM: limited active range of motion due to pain, limited passive range of motion due to pain, Circulation is intact in all extremities. Joints: the right knee displays tenderness, the left hip displays swelling, tenderness, hematoma. 10:37 Skin: Appearance: ecchymosis, that are moderate, of the lateral aspect of left thigh. Vital Signs: 12/17 18:39 BP 98 / 67; Pulse 61; Resp 17; Temp 98.1(TE); Pulse Ox 95% on R/A; Weight 114.76 kg; ss Height 5 ft. 9 in. (175.26 cm); Pain 10/10; 19:25 BP 102 / 68; Pulse 59; Resp 18 S; Pulse Ox 97% on R/A; ca1 20:33 BP 105 / 65; Pulse 60; Resp 17 S; Pulse Ox 95% on R/A; ca1 21:15 BP 110 / 69; Pulse 62; Resp 19; Pulse Ox 96% on R/A; ca1 18:39 Body Mass Index 37.36 (114.76 kg, 175.26 cm) ss MDM: 20:20 Patient medically screened. 12/18 10:37 Differential diagnosis: fracture, sprain, hematoma. Data reviewed: vital signs, nurses gs notes, radiologic studies. Counseling: I had a detailed discussion with the patient and/or guardian regarding: the historical points, exam findings, and any diagnostic results supporting the discharge/admit diagnosis, radiology results. Response to treatment: the patient's symptoms have mildly improved after treatment. 12/17 20:20 Order name: Hip Left 2 View XRAY; Complete Time: 21:30 12/17 20:20 Order name: Shoulder Left (2 View) XRAY; Complete Time: 21:30 12/17 20:20 Order name: Knee Right 3 View XRAY; Complete Time: 21:30 Administered Medications: No medications were administered Disposition: 12/17/18 21:28 Discharged to Home. Impression: Contusion of left hip, Sprain of other specified parts of knee. - Condition is Stable. - Discharge Instructions: Contusion, Combined Knee Ligament Sprain. - Prescriptions for Tylenol- Codeine #3 300-30 mg Oral Tablet - take 0.5 tablet by ORAL route every 6 hours As needed; 6 tablet. - Medication Reconciliation Form, Thank You Letter, Antibiotic Education, Prescription Opioid Use form. - Follow up: Chon Garibay MD; When: 2 - 3 days; Reason: Re-evaluation by your physician. Signatures: Dispatcher [employer] EDRI Zaria Rivas RN RN Ruben Regalado MD MD Noemy Vizcaino RN RN ca1 Corrections: (The following items were deleted from the chart) 12/17 21:40 21:28 12/17/2018 21:28 Discharged to Home. Impression: Contusion of left hip; Sprain of ca1 other specified parts of knee. Condition is Stable. Forms are Medication Reconciliation Form, Thank You Letter, Antibiotic Education, Prescription Opioid Use. Follow up: Chon Garibay; When: 2 - 3 days; Reason: Re-evaluation by your physician.
[2018-12-17 22:15] VITALS: TEMP 98.1
[2018-12-17 22:20] VITALS: BP 110/69; O2SAT 96
== END 2018-12-17 21:40 | disposition home or self-care (01) ==
LOC: ER 18:27
DX: S70.02XA Contusion of left hip, initial encounter (principal); S83.8X1A Sprain of other specified parts of right knee, initial encounter; M17.11 Unilateral primary osteoarthritis, right knee; M19.012 Primary osteoarthritis, left shoulder; W19.XXXA Unspecified fall, initial encounter; Y92.009 Unspecified place in unspecified non-institutional (private) residence as the place of occurrence of the external cause; M81.0 Age-related osteoporosis without current pathological fracture
CPT/HCPCS: 99283

== ENCOUNTER 2019-03-01 19:20 | Inpatient (IN) | payer OTHER ==
[2019-03-01 20:16] LABS: Absolute Lymphocytes (CBC) 3.2 K/uL (0.7-4.9); Basophils % 0.9 % (0-1.3); Eosinophils % 2.1 % (0-4.4); MPV 9.4 fL (7.6-11.3); Monocytes % 8.4 % (3.3-12.3); RBC Red Blood Cell Count 4.99 M/uL (3.86-4.86)
[2019-03-01] MEDS ORDERED: CEFTRIAXONE/SWI 1gm 1 GM/10 ML SYR ONE (20:24)
[2019-03-01] MEDS ORDERED: NA CHLORIDE 0.9% 0 ML ONE (20:24)
[2019-03-01] MEDS ORDERED: NA CHLORIDE 0.9% 2,000 ML ONE (20:24)
[2019-03-01 20:47] LABS: ALT/SGPT 19 U/L (12-78); AST/SGOT 11 U/L (15-37); Albumin 3.6 g/dL (3.4-5.0); Alkaline Phosphatase 136 U/L (45-117); BUN Blood Urea Nitrogen 12 mg/dL (7-18); Bicarbonate 20 mmol/L (21-32); Bilirubin Direct 0.2 mg/dL (0-0.2); Bilirubin Total 0.8 mg/dL (0.2-1.0); CKMB Creatine Kinase MB < 1.0 ng/mL (0.3-3.6); Creatine Phosphokinase 45 U/L (26-192); Lipase 246 U/L (73-393); Protein, Total 7.7 g/dL (6.4-8.2); Sodium Level 126 mmol/L (136-145); Troponin (Emerg Dept Use Only) < 0.02 ng/mL (0.0-0.045)
[2019-03-01 20:49] LABS: Glucose Level 664 mg/dL (74-106)
[2019-03-01 20:52] LABS: Urine Blood NEGATIVE (NEG); Urine Glucose 2+ (NEG); Urine Protein TRACE (NEG); Urine Specific Gravity <1.005 (1.005-1.030); Urine pH 5.5 (5.0-7.0)
--- NOTE | 2019-03-01 21:09 | RAD REPORT ---
EXAM DESCRIPTION: RAD - Chest Single View - 03/01/2019 8:06 pm CLINICAL HISTORY: Fever COMPARISON: November 2018 TECHNIQUE: AP portable chest image was obtained 2004 hour . FINDINGS: Lung volumes are low. No focal lung parenchymal process. No failure or volume overload. He art and vasculature are normal. No measurable pleural effusion and no pneumothorax. No acute bony abn ormality seen. No acute aortic findings suspected. IMPRESSION: No acute cardiopulmonary process. No significant interval change.
[2019-03-01 21:29] LABS: Urine Amorphous Sediment 1+ /HPF (NONE SEEN); Urine Culture Reflex Order NOT NEEDED; Urine Yeast FEW (NONE SEEN)
[2019-03-01 21:30] LABS: Urine Bacteria <20 /HPF (<20); Urine RBC NONE SEEN /HPF (NONE SEEN)
[2019-03-01] MEDS ORDERED: INSULIN -REGULAR HUMAN 50 UNIT/0.5 ML ML ONE ×2 (21:34→22:41)
[2019-03-01] MEDS ORDERED: NA CHLORIDE 0.9% 1,000 ML ONE (21:40)
[2019-03-01 22:05] LABS: Arterial Blood Carboxyhemoglob 1.6 % (0-1.5); Blood Gas Oxyhemoglobin 92.2 % (94-97); Blood O2 Saturation 94.5 % (92-98.5)
--- NOTE | 2019-03-01 22:14 | EDPHYS ---
Physician Documentation [facility] Name: Lucia Naidu Age: 63 yrs Sex: Female : 1955 Arrival Date: 03/01/2019 Time: 19:23 Bed 3 Private MD: ED Physician Arturo Vides HPI: 03/01 20:06 This 63 yrs old Female presents to ER via Wheelchair with complaints of High pm1 Blood Sugar. 20:06 The patient or guardian reports hyperglycemia, that was potentially precipitated by pm1 possible urinary tract infection. Onset: The symptoms/episode began/occurred 2 day(s) ago. Associated signs and symptoms: Pertinent positives: polydipsia, altered mental status, burning with urination. The patient has been recently seen by a physician: the patient's primary care provider, with similar presenting complaints, Went to her PCP yesterday with complaints of altered mental status, hyperglycemia, and burning with urination. Patient was not able to provide a urine sample at that time and was not prescribed any medications. Patient with poorly controlled diabetes. Blood sugars typically in the 300's range. Historical: - Allergies: 19:40 Codeine; aj1 19:40 Morphine; aj1 - Home Meds: 19:40 pantoprazole 40 mg oral TbEC 1 tab once daily [Active]; metformin 850 mg Oral tab 1 tab aj1 2 times per day [Active]; amlodipine 5 mg tab 1 tab once daily [Active]; amitriptyline 50 mg Oral tab 1 tab once daily [Active]; glimepiride 4 mg Oral tab 1 tab once daily [Active]; duloxetine 60 mg oral cpDR 1 cap once daily [Active]; lisinopril 40 mg Oral tab 1 tab once daily [Active]; atorvastatin 20 mg oral tab 1 tab once daily [Active]; pioglitazone 45 mg oral tab 1 tab once daily [Active]; metoprolol tartrate 50 mg Oral tab 2 tabs once daily [Active]; - PMHx: 19:40 Dementia; Hypertension; Diabetes - NIDDM; neuropathy; Hyperlipidemia; aj1 - PSHx: 19:40 Cholecystectomy; Hysterectomy; aj1 - Immunization history:: Flu vaccine is up to date. - Social history:: Smoking status: Patient/guardian denies using tobacco. - Ebola Screening: : Patient denies travel to an Ebola-affected area in the 21 days before illness onset. ROS: 20:06 Constitutional: Negative for fever, chills, and weight loss, Eyes: Negative for injury, pm1 pain, redness, and discharge, ENT: Negative for injury, pain, and discharge, Neck: Negative for injury, pain, and swelling, Cardiovascular: Negative for chest pain, palpitations, and edema, Respiratory: Negative for shortness of breath, cough, wheezing, and pleuritic chest pain, Abdomen/GI: Negative for abdominal pain, nausea, vomiting, diarrhea, and constipation, Back: Negative for injury and pain. 20:06 MS/Extremity: Negative for injury and deformity, Skin: Negative for injury, rash, and discoloration. 20:06 : Positive for burning with urination. 20:06 Neuro: Positive for altered mental status, Negative for headache. Exam: 20:06 Constitutional: This is a well developed, well nourished patient who is awake, alert, pm1 and in no acute distress. Head/Face: Normocephalic, atraumatic. Eyes: Pupils equal round and reactive to light, extra-ocular motions intact. Lids and lashes normal. Conjunctiva and sclera are non-icteric and not injected. Cornea within normal limits. Periorbital areas with no swelling, redness, or edema. ENT: Nares patent. No nasal discharge, no septal abnormalities noted. Tympanic membranes are normal and external auditory canals are clear. Oropharynx with no redness, swelling, or masses, exudates, or evidence of obstruction, uvula midline. Mucous membranes moist. Neck: Trachea midline, no thyromegaly or masses palpated, and no cervical lymphadenopathy. Supple, full range of motion without nuchal rigidity, or vertebral point tenderness. No Meningismus. Chest/axilla: Normal chest wall appearance and motion. Nontender with no deformity. No lesions are appreciated. Cardiovascular: Regular rate and rhythm with a normal S1 and S2. No gallops, murmurs, or rubs. Normal PMI, no JVD. No pulse deficits. Respiratory: Lungs have equal breath sounds bilaterally, clear to auscultation and percussion. No rales, rhonchi or wheezes noted. No increased work of breathing, no retractions or nasal flaring. Abdomen/GI: Soft, non-tender, with normal bowel sounds. No distension or tympany. No guarding or rebound. No evidence of tenderness throughout. Back: No spinal tenderness. No costovertebral tenderness. Full range of motion. Skin: Warm, dry with normal turgor. Normal color with no rashes, no lesions, and no evidence of cellulitis. MS/ Extremity: Pulses equal, no cyanosis. Neurovascular intact. Full, normal range of motion. 20:06 Neuro: Orientation: to person, place, situation, but slow and with mild confusion. Asks same question repetitively. Motor: is normal, moves all fours. Vital Signs: 19:40 BP 66 / 45; Pulse 65; Resp 20; Temp 96.8; Pulse Ox 94% on R/A; Weight 99.79 kg (R); aj1 Height 5 ft. 8 in. (172.72 cm) (R); Pain 10/10; 19:49 BP 96 / 51; Pulse 64; Resp 20; Pulse Ox 96% on R/A; aa1 20:19 BP 70 / 44 (/lg); Pulse 63; Resp 16; Pulse Ox 95% on R/A; tl2 21:06 BP 100 / 70 LA (man/); tl2 21:06 BP 94 / 68 (/reg); Pulse 64; Resp 18; Pulse Ox 99% on R/A; tl2 21:57 BP 90 / 70; Pulse 80; Resp 18; Pulse Ox 98% on R/A; tl2 22:42 BP 107 / 88; Pulse 62; Resp 18; Temp 97.9; Pulse Ox 97% on R/A; tl2 23:37 BP 102 / 67; Pulse 71; Resp 18; Pulse Ox 98% on R/A; tl2 19:40 Body Mass Index 33.45 (99.79 kg, 172.72 cm) aj1 MDM: 19:53 Patient medically screened. pm1 22:10 Data reviewed: vital signs. Data interpreted: Pulse oximetry: on room air is 98 %. pm1 Interpretation: normal. Counseling: I had a detailed discussion with the patient and/or guardian regarding: the historical points, exam findings, and any diagnostic results supporting the discharge/admit diagnosis, lab results, radiology results, the need for further work-up and treatment in the hospital. 03/01 19:54 Order name: Urine Culture pm1 03/01 19:54 Order name: Basic Metabolic Panel pm03/01 19:54 Order name: Blood Culture Adult (2) pm03/01 19:54 Order name: CBC with Diff; Complete Time: 20:42 pm03/01 19:54 Order name: Ckmb; Complete Time: 20:51 pm03/01 19:54 Order name: CPK; Complete Time: 20:51 pm03/01 19:54 Order name: Lactate; Complete Time: 20:48 pm03/01 19:54 Order name: LFT's; Complete Time: 20:51 pm03/01 19:54 Order name: Lipase; Complete Time: 20:54 pm03/01 19:54 Order name: Procalcitonin; Complete Time: 21:46 pm03/01 19:54 Order name: Protime (+inr) pm03/01 19:54 Order name: Ptt, Activated pm03/01 19:54 Order name: Troponin (emerg Dept Use Only); Complete Time: 20:51 pm03/01 19:54 Order name: Urine Microscopic Only; Complete Time: 21:46 pm03/01 19:54 Order name: Chest Single View XRAY; Complete Time: 21:22 pm03/01 19:54 Order name: Accucheck; Complete Time: 20:03 pm03/01 19:54 Order name: Cardiac monitoring; Complete Time: 20:03 pm03/01 19:56 Order name: Urine Culture [facility] 03/01 19:56 Order name: Basic Metabolic Panel; Complete Time: 20:51 [facility] 03/01 19:56 Order name: Blood Culture [facility] 03/01 20:38 Order name: Urine Dipstick--Ancillary (enter results); Complete Time: 20:54 2 03/01 21:22 Order name: CT Head Brain wo Cont pm03/01 21:50 Order name: ABG pm03/01 21:51 Order name: ABG Arterial Blood Gas; Complete Time: 22:46 EDKS 03/01 22:18 Order name: Glucose; Complete Time: 23:33 tl2 03/01 19:54 Order name: EKG - Nurse/Tech; Complete Time: 20:18 pm03/01 19:54 Order name: IV Saline Lock - Large Bore; Complete Time: 20:03 pm1 03/01 19:54 Order name: Labs collected and sent; Complete Time: 20:03 pm1 03/01 19:54 Order name: O2 Per Protocol; Complete Time: 20:03 pm1 03/01 19:54 Order name: O2 Sat Monitoring; Complete Time: 20:03 pm1 03/01 19:54 Order name: Urine Dipstick-Ancillary (obtain specimen); Complete Time: 20:42 pm1 03/01 20:42 Order name: Straight Cath - Urine; Complete Time: 20:42 tl2 Administered Medications: 20:18 Drug: Rocephin 1 grams Route: IV; Rate: calculated rate; Site: right antecubital; tl2 20:19 Drug: NS 0.9% (30 ml/kg) 30 ml/kg Route: IV; Rate: bolus; Site: right antecubital; tl2 23:14 Follow up: IV Status: Completed infusion; IV Intake: 3000ml tl2 21:20 Drug: Insulin Regular Human 10 units {Co-Signature: aa1 (Tiara Acosta RN).} Route: tl2 IVP; Site: right antecubital; 22:17 Follow up: Response: No adverse reaction; Blood sugar is lowered tl2 22:17 Drug: DiFLUcan 150 mg Route: PO; tl2 03/02 00:21 Follow up: Response: No adverse reaction tl2 03/01 22:37 Drug: Insulin Drip - (Insulin Regular Human 100 units, NS 0.9% 100 ml) {Co-Signature: tl2 fc (Adeline Acosta RN).} Route: IV; Rate: calculated rate; Site: right antecubital; 03/02 00:21 Follow up: IV Status: Infusion continued upon admission; IV Intake: 5ml tl2 Point of Care Testing: Blood Glucose: 03/01 20:03 Blood Glucose: High (>450 mg/dL); tl2 22:18 Blood Glucose: High (>450 mg/dL); tl2 23:37 Blood Glucose: 410 mg/dL; tl2 Ranges: Critical Glucose Levels:Adult <50 mg/dl or >400 mg/dl <40 mg/dl or >180 mg/dl Disposition: 03/01/19 22:12 Hospitalization ordered by Yosvany Leos for Inpatient Admission. Preliminary diagnosis are Other specified diabetes mellitus with ketoacidosis without coma, Candidiasis. - Bed requested for Intensive Care Unit. - Status is Inpatient Admission. tl2 - Condition is Stable. - Problem is new. - Symptoms have improved. UTI on Admission? Yes Addendum: 03/04/2019 13:59 Co-signature as Attending Physician, Arturo Vides MD Available for consultation at p s1 all times . Signatures: Dispatcher [employer] EDMS Paty Shearer RN RN aj1 Maricarmen Ashraf RN RN cg Bryant Connor, ELEMENTARY INSTRUCTIONAL COACH ELEMENTARY INSTRUCTIONAL COACH pm1 Verónica Hernandez RN RN tl2 Arturo Vides MD MD [facility] Tiara Acosta RN aa1 Adeline Acosta RN fc Corrections: (The following items were deleted from the chart) 03/01 22:54 22:12 Hospitalization Ordered by Yosvany Leos MD for Inpatient Admission. Preliminary cg diagnosis is Other specified diabetes mellitus with ketoacidosis without coma; Candidiasis. Bed requested for Telemetry/MedSurg (Inpatient). Status is Inpatient Admission. Condition is Stable. Problem is new. Symptoms have improved. UTI on Admission? Yes. pm1 03/02 00:22 03/01 22:54 03/01/2019 22:12 Hospitalization Ordered by Yosvany Leos MD for Inpatient tl2 Admission. Preliminary diagnosis is Other specified diabetes mellitus with ketoacidosis without coma; Candidiasis. Bed requested for Intensive Care Unit. Status is Inpatient Admission. Condition is Stable. Problem is new. Symptoms have improved. UTI on Admission? Yes. cg
--- NOTE | 2019-03-01 22:14 | ER ---
Nurse's Notes [facility] Name: Lucia Naidu Age: 63 yrs Sex: Female : 1955 Arrival Date: 03/01/2019 Time: 19:23 Bed 3 Private MD: Diagnosis: Other specified diabetes mellitus with ketoacidosis without coma;Candidiasis Presentation: 03/01 19:31 Presenting complaint: Child states: "She's a diabetic, and she went to the doctor aj1 yesterday, they took blood but it was too high to read. The nurse had me check it this morning and it was 550 and then this evening it wouldn't read it said over 600. She has a UTI but we weren't able to give a urine sample yesterday" Patient reports pain "from head to toe" Reports generalized weakness. Patient's daughter reports that she seems more drowsy and confused than normal. Transition of care: patient was not received from another setting of care. Onset of symptoms was March 01, 2019. Risk Assessment: Do you want to hurt yourself or someone else? Patient reports no desire to harm self or others. Initial Sepsis Screen: Does the patient meet any 2 criteria? RR > 20 per min. Temp <36.0*C (96.8*F)) or > 38.3*C (100.9*F). Does the patient have a suspected source of infection? Yes: Dysuria/Frequency/Urgency/UTI If YES to both, name of provider notified: Bryant Connor POULTRY TENDER. Care prior to arrival: None. 19:31 Method Of Arrival: Wheelchair aj1 19:31 Acuity: BEN 2 aj1 Triage Assessment: 19:40 General: Appears uncomfortable, ill, Behavior is calm, cooperative, drowsy, flat. aj1 Neuro: Oriented to person, place, time, situation. Cardiovascular: Patient's skin is warm and dry. Respiratory: Airway is patent Respiratory effort is even, unlabored, Respiratory pattern is regular, symmetrical. Historical: - Allergies: 19:40 Codeine; aj1 19:40 Morphine; aj1 - Home Meds: 19:40 pantoprazole 40 mg oral TbEC 1 tab once daily [Active]; metformin 850 mg Oral tab 1 tab aj1 2 times per day [Active]; amlodipine 5 mg tab 1 tab once daily [Active]; amitriptyline 50 mg Oral tab 1 tab once daily [Active]; glimepiride 4 mg Oral tab 1 tab once daily [Active]; duloxetine 60 mg oral cpDR 1 cap once daily [Active]; lisinopril 40 mg Oral tab 1 tab once daily [Active]; atorvastatin 20 mg oral tab 1 tab once daily [Active]; pioglitazone 45 mg oral tab 1 tab once daily [Active]; metoprolol tartrate 50 mg Oral tab 2 tabs once daily [Active]; - PMHx: 19:40 Dementia; Hypertension; Diabetes - NIDDM; neuropathy; Hyperlipidemia; aj1 - PSHx: 19:40 Cholecystectomy; Hysterectomy; aj1 - Immunization history:: Flu vaccine is up to date. - Social history:: Smoking status: Patient/guardian denies using tobacco. - Ebola Screening: : Patient denies travel to an Ebola-affected area in the 21 days before illness onset. Screenin:21 Abuse screen: Denies threats or abuse. Nutritional screening: No deficits noted. tl2 Tuberculosis screening: No symptoms or risk factors identified. Fall Risk Fall in past 12 months (25 points). IV access (20 points). Gait- Weak (10 pts.). Assessment: 20:19 General: Appears in no apparent distress. uncomfortable, Behavior is cooperative, tl2 drowsy, listless. Pain: Complains of pain in generalized pain. Neuro: Level of Consciousness is awake, obeys commands, lethargic, listless, Oriented to person, place, time. Cardiovascular: Denies chest pain. Respiratory: Airway is patent Respiratory effort is even, unlabored, Respiratory pattern is regular, symmetrical, Denies shortness of breath. GI: No signs and/or symptoms were reported involving the gastrointestinal system. : Reports burning with urination. Derm: Skin is pale. 21:30 Reassessment: Patient appears in no apparent distress at this time. Patient and/or tl2 family updated on plan of care and expected duration. Pain level reassessed. pt appears more alert at this time, continuing to monitor BP. 22:30 Reassessment: Patient appears in no apparent distress at this time. Patient and/or tl2 family updated on plan of care and expected duration. Pain level reassessed. Patient is alert, oriented x 3, equal unlabored respirations, skin warm/dry/pink. 03/02 00:00 Reassessment: Patient appears in no apparent distress at this time. Patient and/or tl2 family updated on plan of care and expected duration. Pain level reassessed. Patient is alert, oriented x 3, equal unlabored respirations, skin warm/dry/pink. pt stable for transport. Vital Signs: 03/01 19:40 BP 66 / 45; Pulse 65; Resp 20; Temp 96.8; Pulse Ox 94% on R/A; Weight 99.79 kg (R); aj1 Height 5 ft. 8 in. (172.72 cm) (R); Pain 10/10; 19:49 BP 96 / 51; Pulse 64; Resp 20; Pulse Ox 96% on R/A; aa1 20:19 BP 70 / 44 (/lg); Pulse 63; Resp 16; Pulse Ox 95% on R/A; tl2 21:06 BP 100 / 70 LA (man/); tl2 21:06 BP 94 / 68 (/reg); Pulse 64; Resp 18; Pulse Ox 99% on R/A; tl2 21:57 BP 90 / 70; Pulse 80; Resp 18; Pulse Ox 98% on R/A; tl2 22:42 BP 107 / 88; Pulse 62; Resp 18; Temp 97.9; Pulse Ox 97% on R/A; tl2 23:37 BP 102 / 67; Pulse 71; Resp 18; Pulse Ox 98% on R/A; tl2 19:40 Body Mass Index 33.45 (99.79 kg, 172.72 cm) aj1 ED Course: 19:23 Patient arrived in ED. as 19:35 Triage completed. aj1 19:40 Arm band placed on Patient placed in an exam room. aj1 19:49 Bryant Connor NP is PHCP. pm1 19:49 Arturo Vides MD is Attending Physician. pm1 20:00 Initial lab(s) drawn, by me, sent to lab. First set of blood cultures drawn. tl2 20:04 Inserted saline lock: 22 gauge in right antecubital area, using aseptic technique. tl2 Blood collected. 20:06 Chest Single View XRAY In Process Unspecified. EDMS 20:21 EKG done, by multi craft maintenance technician. reviewed by Bryant Marinas POULTRY TENDER. tl2 20:21 Patient has correct armband on for positive identification. Placed in gown. Bed in low tl2 position. Call light in reach. Side rails up X2. Adult w/ patient. 20:43 Straight cath inserted, using sterile technique, 16 Fr. Returned cloudy urine. Patient tl2 tolerated well. 21:20 Verónica Hernandez, RN is Primary Nurse. tl2 21:42 CT Head Brain wo Cont In Process Unspecified. EDMS 22:11 Yosvany Leos MD is Hospitalizing Provider. pm1 03/02 00:00 No provider procedures requiring assistance completed. tl2 00:19 Patient admitted, IV remains in place. tl2 Administered Medications: 03/01 20:18 Drug: Rocephin 1 grams Route: IV; Rate: calculated rate; Site: right antecubital; tl2 20:19 Drug: NS 0.9% (30 ml/kg) 30 ml/kg Route: IV; Rate: bolus; Site: right antecubital; tl2 23:14 Follow up: IV Status: Completed infusion; IV Intake: 3000ml tl2 21:20 Drug: Insulin Regular Human 10 units {Co-Signature: aa1 (Taira Acosta RN).} Route: tl2 IVP; Site: right antecubital; 22:17 Follow up: Response: No adverse reaction; Blood sugar is lowered tl2 22:17 Drug: DiFLUcan 150 mg Route: PO; tl2 03/02 00:21 Follow up: Response: No adverse reaction tl2 03/01 22:37 Drug: Insulin Drip - (Insulin Regular Human 100 units, NS 0.9% 100 ml) {Co-Signature: tl2 fc (Adeline Acosta RN).} Route: IV; Rate: calculated rate; Site: right antecubital; 03/02 00:21 Follow up: IV Status: Infusion continued upon admission; IV Intake: 5ml tl2 Point of Care Testing: Blood Glucose: 03/01 20:03 Blood Glucose: High (>450 mg/dL); tl2 22:18 Blood Glucose: High (>450 mg/dL); tl2 23:37 Blood Glucose: 410 mg/dL; tl2 Ranges: Intake: 23:14 IV: 3000ml; Total: 3000ml. tl2 03/02 00:21 IV: 5ml; Total: 3005ml. tl2 Outcome: 03/01 22:12 Decision to Hospitalize by Provider. pm1 03/02 00:19 Admitted to ICU accompanied by nurse, via stretcher, room 6, on monitor, with chart, tl2 Report called to REAL Salgado 00:20 Condition: stable tl2 00:20 Discharge instructions given to patient, family, Instructed on the need for admit. 00:22 Patient left the ED. tl2 Signatures: Dispatcher [employer] Paty Rodriguez RN RN aj1 Tiara Acosta RN RN aa1 Nell Valdez Patrick, POULTRY TENDER POULTRY TENDER pm1 Verónica Hernandez RN RN tl2 Tiara Acosta RN aa1 Adeline Acosta RN Corrections: (The following items were deleted from the chart) 03/01 20:04 19:31 Initial Sepsis Screen: Does the patient meet any 2 criteria? No. Patient's aj1 initial sepsis screen is negative. Does the patient have a suspected source of infection? No. Patient's initial sepsis screen is negative. aj1 20:05 20:04 Arm band placed on Patient placed in an exam room, aj1 aj1 21:07 20:19 BP 70 / 44; Pulse 63bpm; Resp 16bpm; Pulse Ox 95% RA; tl2 tl2 23:38 22:18 Blood Glucose: Blood Glucose Eogwsdh=202 mg/dL. tl2 tl2 03/02 00:18 03/01 21:57 Reassessment: Patient appears in no apparent distress at this time. Patient tl2 and/or family updated on plan of care and expected duration. Pain level reassessed. Patient is alert, oriented x 3, equal unlabored respirations, skin warm/dry/pink. tl2
[2019-03-01] MEDS ORDERED: FLUCONAZOLE 100 MG TAB ONE (22:15)
[2019-03-01] MEDS ORDERED: NA CHLORIDE 0.9% 100 ML IV ONE (22:42)
--- NOTE | 2019-03-01 23:08 | P.HP ---
Certification for Inpatient Patient admitted to: Inpatient With expected LOS: >2 Midnights Practitioner: I am a practitioner with admitting privileges, knowledge of patient current condition, hospital course, and medical plan of care. Services: Services provided to patient in accordance with Admission requirements found in Title 42 Section 412.3 of the Code of Federal Regulations Patient History Date of Service: 03/01/19 Reason for admission: DKA, UTI History of Present Illness: Ms Naidu is a 63 years old woman with history of DM II, HTN, Dementia, recurrent falls in the last couple of months, who went to her PCP yesterday because she needed to refill her home medication, her blood sugar was elevated in the doctor office. She was also complaining of burning urination lately (she said since several weeks ago), no fever or chills. Not able to provide urine sample in her PCP appointment yesterday, no antibiotics prescribed. Today, the patient had nausea and vomiting, was more lethargic, with epigastric pain. Lab work was remarkable for leukocytosis, hyponatremia (possible pseudohyponatremia ) hyperglycemia, abnormal kidney function. UA positive for ketones, and yeast. Urine in ER had significant amount of sediment. She was afebrile, BP on the lower side, 66/45, improving after IV fluids. Allergies codeine Adverse Reaction (Verified 11/09/18 03:58) Nausea/Vomiting morphine Adverse Reaction (Verified 11/09/18 03:58) Nausea/Vomiting Home Medications: Amitriptyline [Elavil*] 100 mg PO BEDTIME 11/09/18 Amlodipine [Norvasc*] 10 mg PO DAILY 11/09/18 Cyclobenzaprine [Flexeril*] 5 mg PO TID 11/09/18 Duloxetine [Cymbalta *] 60 mg PO DAILY 11/09/18 Fenofibrate [Tricor*] 67 mg PO DAILY 11/09/18 Gabapentin [Neurontin*] 300 mg PO TID 11/09/18 Glimepiride [Amaryl*] 2 mg PO BID 11/09/18 Lisinopril [Zestril] 40 mg PO DAILY 11/09/18 Meloxicam 7.5 mg PO DAILY 11/09/18 Metformin ER [Glucophage ER*] 850 mg PO BID 11/09/18 Metoprolol Tartrate [Lopressor*] 50 mg PO DAILY 11/09/18 Pantoprazole [Protonix Tab*] 40 mg PO DAILY 11/09/18 Lactobacillus Acidophilus [Probiotic Acidophilus] 1.5 mg PO DAILY #10 capsule levoFLOXacin [Levaquin] 500 mg PO DAILY #7 tab 11/11/18 - Past Medical/Surgical History Diabetic: Yes -: DM -: HTN -: neuropathy -: cholecystectomy -: hysterectomy - Family History Mother -: Heart disease, Diabetes Notes: had triple bypass - Social History Alcohol use: No CD- Drugs: No Caffeine use: Yes Place of Residence: Home Review of Systems 10-point ROS is otherwise unremarkable Physical Examination - Physical Exam General: Alert, In no apparent distress, Demented HEENT: Atraumatic, PERRLA, Mucous membr. moist/pink, EOMI, Sclerae nonicteric Neck: Supple, 2+ carotid pulse no bruit, No LAD, Without JVD or thyroid abnormality Respiratory: Clear to auscultation bilaterally, Normal air movement Cardiovascular: Regular rate/rhythm, Normal S1 S2 Gastrointestinal: Normal bowel sounds, No tenderness Musculoskeletal: No tenderness Integumentary: No rashes Neurological: Normal speech, Normal strength at 5/5 x4 extr, Normal tone, Normal affect Lymphatics: No axilla or inguinal lymphadenopathy - Studies Laboratory Data (last 24 hrs) 03/01/19 20:00: WBC 11.2 H, Hgb 14.2, Hct 44.0, Plt Count 322 03/01/19 20:00: Sodium 126 L, Potassium 5.0, BUN 12, Creatinine 1.62 H, Glucose 664 H*, Total Bilirubin 0.8, AST 11 L, ALT 19, Alkaline Phosphatase 136 H, Lipase 246 Assessment and Plan - Problems (Diagnosis) (1) DKA (diabetic ketoacidoses) Current Visit: Yes Status: Acute Qualifiers: Diabetes mellitus type: type 2 Diabetes mellitus complication detail: without coma Qualified Code(s): E11.10 - Type 2 diabetes mellitus with ketoacidosis without coma (2) Acute renal injury Current Visit: No Status: Acute (3) UTI (urinary tract infection) Current Visit: No Status: Acute Qualifiers: Urinary tract infection type: acute cystitis Hematuria presence: without hematuria Qualified Code(s): N30.00 - Acute cystitis without hematuria (4) Diabetes mellitus Current Visit: No Status: Chronic Qualifiers: Diabetes mellitus type: type 2 Diabetes mellitus terminal superintendent insulin use: without usp use Diabetes mellitus complication status: with neurologic complications Diabetes mellitus complication detail: with unspecified neuropathy Qualified Code(s): E11.40 - Type 2 diabetes mellitus with diabetic neuropathy, unspecified (5) HTN (hypertension) Current Visit: No Status: Chronic Qualifiers: Hypertension type: essential hypertension Qualified Code(s): I10 - Essential (primary) hypertension - Plan Will admit the patient due to mild DKA. Will order IV fluids and insulin drip per DKA protocol. UA shows ketones and yeast. Will order empiric treatment with Rocephin and Fluconazole. Antibiotics will be narrowed according with urine culture. - Advance Directives Does patient have a Living Will: No Does patient have a Durable POA for Healthcare: No - Code Status/Comfort Care Code Status Assessed: Yes Code Status: Full Code
[2019-03-01] MEDS ORDERED: INSULIN -REGULAR HUMAN 100 UNIT in NA CHLORIDE 0.9% 100 ML IV SCH (23:51)
[2019-03-01] MEDS ORDERED: ONDANSETRON 4 MG/2 ML VIAL IV PRN (23:51)
[2019-03-01] MEDS: D5 0.45 NS 1,000 ML IV SCH (23:51)
[2019-03-02 01:09] LABS: Protime INR 0.96
[2019-03-02] MEDS: NACHLORIDE 0.45% 1,000 ML IV SCH ×3 (01:11→07:51)
[2019-03-02 01:16] LABS: Potassium 3.7 mmol/L (3.5-5.1)
[2019-03-02] MEDS: D5 0.45 NS 1,000 ML IV SCH (04:38)
[2019-03-02 05:40] LABS: BUN Blood Urea Nitrogen 10 mg/dL (7-18); Bicarbonate 26 mmol/L (21-32); Glucose Level 180 mg/dL (74-106); Potassium 3.3 mmol/L (3.5-5.1); Sodium Level 139 mmol/L (136-145)
[2019-03-02] MEDS ORDERED: GLUCAGON 1 MG/VIAL IM PRN ×3 (06:16→18:55)
[2019-03-02] MEDS ORDERED: D50W 25 GM/50 ML SYRINGE IV PRN ×3 (06:16→18:55)
[2019-03-02] MEDS: INSULIN GLARGINE 100 UNITS/ML SQ SCH ×2 (06:41→07:32)
[2019-03-02] MEDS ORDERED: KCL 20 MEQ/100 mL IVPB 20 MEQ/100 ML BAG IV SCH (07:00)
[2019-03-02] MEDS: HEPARIN 5000 UNIT/ML 1 ML VIAL SQ SCH ×2 (08:43→20:45)
[2019-03-02] MEDS: INSULIN -REGULAR HUMAN 50 UNIT/0.5 ML ML SQ SCH ×4 (08:44→16:30)
[2019-03-02] MEDS ORDERED: NA CHLORIDE 0.9% 250 ML ONE (09:33)
--- NOTE | 2019-03-02 09:54 | EKG ---
Test Date: 2019-03-01 Test Time: 20:20:05 Evs Manager: NEGIN MEASUREMENT RESULTS: Intervals: Rate: 63 LA: 174 QRSD: 82 QT: 434 QTc: 444 [place]: P: 30 LA: 174 QRS: -19 T: 40 INTERPRETIVE STATEMENTS: Normal sinus rhythm Normal ECG Compared to ECG 11/08/2018 20:01:47 Myocardial infarct finding no longer present Electronically Signed On 03-02-19 09:53:38 CDT by Chris King
[2019-03-02] MEDS: NS KCL 40MEQ 40 MEQ/1,000 ML BAG IV SCH ×2 (10:21→20:45)
[2019-03-02] MEDS: GABAPENTIN 300 MG CAP PO SCH ×2 (14:00→20:44)
--- NOTE | 2019-03-02 14:33 | PN ---
Date of Progress Note: 03/02/2019 Code Status: Full. Subjective: The patient seen and examined. Chart reviewed and case discussed with RN. The patient states she feels better than yesterday. Sugars are improving. She is now off IV insulin. Medications: List reviewed. Physical Examination: Vital Signs: Temperature 97.1, heart rate 71, blood pressure 113/45, respirations 19, and O2 of 99% on room air. General: Awake, alert, oriented x3, mild distress, obese female. CV: S1 and S2. Regular rate and rhythm. Peripheral pulses present. Respiratory: Moving air well bilaterally. No wheezing or stridor. Gastrointestinal: Abdomen is soft, nontender, nondistended. Positive bowel sounds. No guarding or rigidity. Extremities: No clubbing, cyanosis, or edema. No calf tenderness. Neuro: Cranial nerves 2 through 12 intact grossly. No focal neurological deficit. Speech is normal . Skin: The patient has hematoma on the left hip from previous fall. Nontender. No ecchymosis. Laboratory Data: Sodium 139, potassium 3.3, chloride 106, CO2 26, BUN 10, creatinine 1.02, glucose 1 80, calcium 7.8. Hemoglobin A1c is pending. Cultures pending. Assessment And Plan: A 63-year-old female with: 1.Diabetic ketoacidosis without coma. The patient has type 2 diabetes, now off IV insulin, has been started on long-acting insulin. We will resume home medications and monitor blood glucose levels. 2.Acute kidney injury, resolved. Creatinine is back to baseline secondary to above. We will contin ue to monitor creatinine. Continue IV fluids. We will add potassium to IV fluids. 3.Hypokalemia. We will replace and monitor. 4.Acute cystitis without hematuria. Continue on IV antibiotics. Cultures are pending at this time. 5.Mixed hyperlipidemia. Continue statin. 6.Diabetes mellitus type 2 without long-term use of insulin with diabetic neuropathy. We will resta rt gabapentin. 7.Essential hypertension. Resume home medications as appropriate. 8.Obesity, BMI 34.5. Plan: Monitor blood glucose levels if under 200 can step down to Med/Surg. Follow up on urine cultu re. Likely discharge in the next 24 to 48 hours depending on condition. /LEXUS Voice ID: [id number] Report ID: [id number]
[2019-03-02] MEDS ORDERED: INSULIN -REGULAR HUMAN 100 UNIT in NA CHLORIDE 0.9% 100 ML IV SCH (16:00)
[2019-03-02 19:38] LABS: Potassium 3.6 mmol/L (3.5-5.1)
[2019-03-02] MEDS: AMITRIPTYLINE 50 MG TAB PO SCH (20:44)
[2019-03-02] MEDS: CEFTRIAXONE/SWI 1gm 1 GM/10 ML SYR IV SCH (20:44)
[2019-03-02] MEDS: ATORVASTATIN 20 MG TAB PO SCH (20:44)
[2019-03-02] MEDS: GLIMEPIRIDE 2 MG TABLET PO SCH (20:45)
[2019-03-02] MEDS ORDERED: CEFTRIAXONE 1 GM/NS 50 ML 1 GM/50 ML BAG IV SCH (21:00)
[2019-03-03] MEDS: NS KCL 40MEQ 40 MEQ/1,000 ML BAG IV SCH ×2 (05:00→08:58)
[2019-03-03 05:27] LABS: Absolute Lymphocytes (CBC) 2.9 K/uL (0.7-4.9); Basophils % 0.8 % (0-1.3); Eosinophils % 3.5 % (0-4.4); Hematocrit 40.3 % (36.0-45.0); Lymphocytes % 36.5 % (15.3-44.8); MPV 8.6 fL (7.6-11.3); Monocytes % 7.4 % (3.3-12.3); RBC Red Blood Cell Count 4.73 M/uL (3.86-4.86)
[2019-03-03 05:43] LABS: Potassium 4.6 mmol/L (3.5-5.1)
[2019-03-03] MEDS: DULOXETINE 30 MG CAP PO SCH (08:35)
[2019-03-03] MEDS: HEPARIN 5000 UNIT/ML 1 ML VIAL SQ SCH ×2 (08:35→20:37)
[2019-03-03] MEDS: PIOGLITAZONE 15 MG TAB PO SCH (08:35)
[2019-03-03] MEDS: LISINOPRIL 20 MG TAB PO SCH (08:35)
[2019-03-03] MEDS: PANTOPRAZOLE 40MG TABLET PO SCH (08:36)
[2019-03-03] MEDS: GLIMEPIRIDE 2 MG TABLET PO SCH ×2 (08:36→20:37)
[2019-03-03] MEDS: AMLODIPINE 5 MG TAB PO SCH (08:36)
[2019-03-03] MEDS: METOPROLOL TAR 50 MG TAB PO SCH (08:36)
[2019-03-03] MEDS: GABAPENTIN 300 MG CAP PO SCH ×3 (08:36→20:36)
[2019-03-03] MEDS: INSULIN GLARGINE 100 UNITS/ML SQ SCH ×2 (08:56→20:36)
[2019-03-03] MEDS ORDERED: NS KCL 40MEQ 40 MEQ/1,000 ML BAG IV SCH (09:00)
[2019-03-03] MEDS ORDERED: GLUCAGON 1 MG/VIAL IM PRN ×2 (11:35→15:54)
[2019-03-03] MEDS ORDERED: D50W 25 GM/50 ML SYRINGE IV PRN ×2 (11:35→15:54)
[2019-03-03] MEDS: INSULIN -REGULAR HUMAN 50 UNIT/0.5 ML ML SQ SCH ×3 (11:49→20:36)
[2019-03-03 12:49] LABS: Potassium 4.3 mmol/L (3.5-5.1)
--- NOTE | 2019-03-03 18:15 | PN ---
Date of Progress Note: 03/03/2019 Subjective: Patient seen and examined. Chart reviewed and case discussed with RN. The patient was unable to be stepped down yesterday. Her blood glucose levels were not well controlled. The patient is back on IV insulin. Medications: Medication list reviewed. Physical Examination: Vital Signs: Temperature 97.5, heart rate 109, respirations 16, blood pressure 123/74, O2 100% on room air. General: Awake, alert, oriented x3. Elderly female, obese. CV: S1, S2. Sinus tachycardia. Peripheral pulses present. Respiratory: Moving air well bilaterally. No wheezing or stridor. Gastrointestinal: Abdomen is soft, nontender, nondistended. Positive bowel sounds. Extremities: No clubbing, cyanosis, or edema. Neuro: Cranial nerves 2 through 12 intact grossly. No focal neurological deficit. Speech is normal. Skin: No rashes. Normal skin turgor. Laboratory Data: Sodium 149, potassium 4.6, chloride 114, CO2 25, BUN 6, creatinine of 0.81, glucose 190, calcium 8.2. WBC 8, H and H 13.8 and 40.3, platelets 214, neutrophils 51%. Assessment/plan: 63-year-old female with: 1. Diabetic ketoacidosis without coma. The patient back on IV insulin due to uncontrolled blood sugar levels in the 500s. The patient has been given Lantus. We will recheck BMP at noon and take off IV insulin if blood sugars better controlled. 2. Acute kidney injury, resolved. Creatinine back to baseline. We will continue to monitor. 3. Hypernatremia. We will adjust IV fluids. 4. Acute cystitis without hematuria. We will continue IV antibiotics. Urine culture growing mixed dagoberto. 5. Mixed hyperlipidemia. We will continue statin. 6. Diabetes mellitus type 2 with long-term use of insulin with diabetic neuropathy, however, controlled. Continue sliding scale insulin, aggressive. 7. Essential hypertension, currently blood pressure on the low side. We will hold medications. 8. Obesity, BMI 34.5. Plan: Step down if blood glucose levels improve. DVT prophylaxis with heparin. /MODL Voice ID: [id number] Report ID: [id number] NATHANAEL
[2019-03-03] MEDS: AMITRIPTYLINE 50 MG TAB PO SCH (20:35)
[2019-03-03] MEDS: ATORVASTATIN 20 MG TAB PO SCH (20:36)
[2019-03-03] MEDS: CEFTRIAXONE/SWI 1gm 1 GM/10 ML SYR IV SCH (20:37)
[2019-03-03] MEDS ORDERED: NA CHLORIDE 0.9% 500 ML IV ONE (21:05)
[2019-03-03] MEDS: NA CHLORIDE 0.9% 1,000 ML IV SCH (23:56)
[2019-03-04 06:08] LABS: Absolute Lymphocytes (CBC) 2.5 K/uL (0.7-4.9); Basophils % 0.5 % (0-1.3); Eosinophils % 1.9 % (0-4.4); Hematocrit 32.4 % (36.0-45.0); Lymphocytes % 33.6 % (15.3-44.8); MPV 8.9 fL (7.6-11.3); Monocytes % 12.1 % (3.3-12.3); RBC Red Blood Cell Count 3.78 M/uL (3.86-4.86)
[2019-03-04 06:13] LABS: Potassium 3.8 mmol/L (3.5-5.1)
[2019-03-04] MEDS: HEPARIN 5000 UNIT/ML 1 ML VIAL SQ SCH ×2 (08:45→20:33)
[2019-03-04] MEDS: GABAPENTIN 300 MG CAP PO SCH ×3 (08:53→20:32)
[2019-03-04] MEDS: DULOXETINE 30 MG CAP PO SCH (08:53)
[2019-03-04] MEDS: INSULIN -REGULAR HUMAN 50 UNIT/0.5 ML ML SQ SCH ×4 (08:53→20:34)
[2019-03-04] MEDS: INSULIN GLARGINE 100 UNITS/ML SQ SCH ×2 (08:53→20:33)
[2019-03-04] MEDS: GLIMEPIRIDE 2 MG TABLET PO SCH ×2 (08:54→20:32)
[2019-03-04] MEDS: PANTOPRAZOLE 40MG TABLET PO SCH (08:54)
[2019-03-04] MEDS: PIOGLITAZONE 15 MG TAB PO SCH (08:54)
[2019-03-04] MEDS: NA CHLORIDE 0.9% 1,000 ML IV SCH ×2 (08:55→17:20)
[2019-03-04] MEDS: AMLODIPINE 5 MG TAB PO SCH (09:00)
[2019-03-04] MEDS: LISINOPRIL 20 MG TAB PO SCH (09:00)
[2019-03-04] MEDS: METOPROLOL TAR 50 MG TAB PO SCH (09:00)
[2019-03-04] MEDS ORDERED: POTASSIUM CL SA 10 MEQ TAB PO ONE (09:00)
--- NOTE | 2019-03-04 13:23 | RAD REPORT ---
EXAM DESCRIPTION: CT - Head Brain Wo Cont - 03/02/2019 2:11 am CLINICAL HISTORY: 63 years Female MENTAL STATUS CHANGE COMPARISON: None TECHNIQUE: Contiguous axial images of the brain were obtained without the administration of intraven ous contrast.This exam was performed according to our departmental dose-optimization program which in cludes use of Automated Exposure Control, adjustment of the mA and/or kV according to patient size an d/or use of iterative reconstruction technique. FINDINGS: Brain: No acute intracranial hemorrhage. No extra-axial collection. No mass effect or kenyetta iation. Mild prominence of the sulci and cisterns Confluent periventricular and subcortical white m atter hypodensity is noted. Intracranial vascular calcifications. Ventricles: Allowing for underlying cerebral volume loss, ventricular size appears within normal limi ts. Globes and orbits: No acute abnormality. Bones: No acute osseous finding. Paranasal sinuses: Air fluid level in the right sphenoid sinus. Mastoid air cells: Well pneumatized. Soft tissues: Within normal limits IMPRESSION: No acute intracranial hemorrhage, hydrocephalus or herniation. Cerebral volume loss and chronic small vessel ischemic changes. If persistent clinical concern for ac mauricio ischemia, consider MRI brain without contrast for further evaluation. Right sphenoid sinus air-fluid level. Correlate for acute sinusitis. Electronically signed by: Jae Cardenas DO 03/01/2019 9:52 PM CDT Due to temporary technical issues with the PACS/Fluency reporting system, reports are being signed by the in house radiologist as a courtesy to ensure prompt reporting. The interpreting radiologist is f ully responsible for the content of the report.
--- NOTE | 2019-03-04 16:30 | PN ---
Date of Progress Note: 03/04/2019 Subjective: The patient seen and examined. Chart reviewed and case discussed with RN. The patient had low blood pressure this morning, requiring a bolus and IV fluids. Blood sugars are slightly bett er in the 200s. The patient still has not gotten up and moved around. We will consult Work Order Clerk apy. Medications: List reviewed. Physical Examination: Vital Signs: Temperature 97.8, heart rate 92, blood pressure 119/64, respirations 18, O2 96% on room air. General: Awake, alert, oriented x3. Obese female, somewhat ill-appearing. CV: S1 and S2. Regular rate and rhythm. Peripheral pulses present. Respiratory: Moving air well bilaterally. No wheezing or stridor. Gastrointestinal: Abdomen is soft, nontender, nondistended. Positive bowel sounds. Extremities: No clubbing, cyanosis, or edema. Neuro: Cranial nerves 2 through 12 intact grossly. No focal neurological deficit. Speech is normal . Laboratory Data: Sodium 142, potassium 3.8, chloride 110, CO2 23, BUN 4, creatinine 0.7, glucose 220 , calcium 8.1. WBC 7.5, H and H 10.9 and 32.4, platelets 155, neutrophils 51%. Blood cultures, no g rowth to date. Assessment And Plan: A 63-year-old female with: 1.Diabetic ketoacidosis without coma. Gap is now closed. The patient now off IV insulin. Continue with Lantus, dose has been adjusted. Currently on aggressive sliding scale. Blood sugar is now in the 200s. Hemoglobin A1c is 15.3. 2.Acute kidney injury, resolved. Creatinine back to baseline. We will continue to monitor. 3.Acute hypotension. The patient received bolus. We will continue with IV fluid maintenance and mo nitor. 4.Acute cystitis without hematuria. Currently on antibiotics. Urine culture growing mixed dagoberto. 5.Mixed hyperlipidemia. Continue statin. 6.Diabetes mellitus type 2 with long-term use of insulin with diabetic neuropathy, uncontrolled. patient's hemoglobin A1c is 15.3%. 7.Essential hypertension. Currently blood pressure is on the low side. We will hold all medication s. 8.Obesity, BMI 34.5. Plan: Continue heparin for DVT prophylaxis. Discharge once blood pressure is improved and blood glu cose levels are better controlled. SA/MODL Voice ID: [id number] Report ID: [id number]
[2019-03-04] MEDS: ATORVASTATIN 20 MG TAB PO SCH (20:32)
[2019-03-04] MEDS: CEFTRIAXONE/SWI 1gm 1 GM/10 ML SYR IV SCH (20:32)
[2019-03-04] MEDS: AMITRIPTYLINE 50 MG TAB PO SCH (20:32)
[2019-03-05 06:05] LABS: Potassium 3.6 mmol/L (3.5-5.1)
[2019-03-05] MEDS ORDERED: POTASSIUM CL SA 10 MEQ TAB PO ONE (06:10)
[2019-03-05] MEDS: NA CHLORIDE 0.9% 1,000 ML IV SCH (06:40)
[2019-03-05] MEDS: INSULIN -REGULAR HUMAN 50 UNIT/0.5 ML ML SQ SCH ×3 (08:31→16:49)
[2019-03-05] MEDS: INSULIN GLARGINE 100 UNITS/ML SQ SCH (08:32)
[2019-03-05] MEDS: PIOGLITAZONE 15 MG TAB PO SCH (08:32)
[2019-03-05] MEDS: DULOXETINE 30 MG CAP PO SCH (08:32)
[2019-03-05] MEDS: METOPROLOL TAR 50 MG TAB PO SCH (08:33)
[2019-03-05] MEDS: GLIMEPIRIDE 2 MG TABLET PO SCH (08:33)
[2019-03-05] MEDS: GABAPENTIN 300 MG CAP PO SCH ×2 (08:33→14:00)
[2019-03-05] MEDS: LISINOPRIL 20 MG TAB PO SCH (08:33)
[2019-03-05] MEDS: PANTOPRAZOLE 40MG TABLET PO SCH (08:33)
[2019-03-05] MEDS: HEPARIN 5000 UNIT/ML 1 ML VIAL SQ SCH (08:34)
[2019-03-05] MEDS: AMLODIPINE 5 MG TAB PO SCH (08:34)
[2019-03-05] MEDS ORDERED: ACETAMINOPHEN 500 MG TAB PO ONE (15:35)
--- NOTE | 2019-03-05 16:29 | P.DS ---
Admission Date: 03/01/19 Discharge Date: 03/05/19 Disposition: ROUTINE DISCHARGE Discharge Condition: GOOD Reason for Admission: DKA, UTI Brief History of Present Illness: Ms Naidu is a 63 years old woman with history of DM II, HTN, Dementia, recurrent falls in the last couple of months, who went to her PCP yesterday because she needed to refill her home medication, her blood sugar was elevated in the doctor office. She was also complaining of burning urination lately (she said since several weeks ago), no fever or chills. Not able to provide urine sample in her PCP appointment yesterday, no antibiotics prescribed. Today, the patient had nausea and vomiting, was more lethargic, with epigastric pain. Lab work was remarkable for leukocytosis, hyponatremia (possible pseudohyponatremia ) hyperglycemia, abnormal kidney function. UA positive for ketones, and yeast. Urine in ER had significant amount of sediment. She was afebrile, BP on the lower side, 66/45, improving after IV fluids Hospital Course: Patient was admitted for mild DKA. She was started on IV fluids and DKA protocol in ICU. She was also started on fluconazole and Rocephin for possibility of urinary tract infection. She was then weaned off of IV insulin and started on long-acting insulin. Her home medications were restarted. Her blood glucose levels improved. She was then transferred to the [facility] floor after her blood sugars were below 200. Her urine cultures were with mixed dagoberto. IV antibiotics were discontinued upon discharge. She did have some hypotension, which improved with IV fluids. Since her blood pressures continued to remain on the lower and, and she remained asymptomatic, her amlodipine was discontinued on discharge and her lisinopril was decreased to 20 mg daily. She was asked and instructed on how to check her blood pressures every day. She was also instructed on how to check her blood sugars every day, and record a log sheet that was provided to her. She will need to follow up with her primary care physician for further management. She was provided with the diabetic clinic/resources for further care. Her diagnoses/treatment plan were explained to her, all questions were answered and she verbalized understanding. She was then discharged home in a safe and stable manner. Vital Signs/Physical Exam: Temp Pulse Resp BP Pulse Ox 97 F 74 18 94/52 L 92 03/05/19 16:00 03/05/19 16:00 03/05/19 16:00 03/05/19 16:00 03/05/19 16:00 General: Alert, In no apparent distress, Oriented x3 HEENT: Atraumatic, PERRLA, EOMI Neck: Supple, JVD not distended Respiratory: Clear to auscultation bilaterally, Normal air movement Cardiovascular: Regular rate/rhythm, Normal S1 S2 Gastrointestinal: Normal bowel sounds, No tenderness Musculoskeletal: No tenderness Integumentary: No rashes Neurological: Normal speech, Normal tone, Normal affect Lymphatics: No axilla or inguinal lymphadenopathy Laboratory Data at Discharge: WBC 7.5 K/uL (4.3-10.9) 03/04/19 05:34 Hgb 10.9 g/dL (12.0-15.0) L D 03/04/19 05:34 Hct 32.4 % (36.0-45.0) L D 03/04/19 05:34 Plt Count 155 K/uL (152-406) D 03/04/19 05:34 PT 11.4 SECONDS (9.5-12.5) 03/02/19 00:34 INR 0.96 03/02/19 00:34 APTT 29.5 SECONDS (24.3-36.9) 03/02/19 00:34 Sodium 142 mmol/L (136-145) 03/05/19 05:26 Potassium 3.6 mmol/L (3.5-5.1) 03/05/19 05:26 BUN 4 mg/dL (7-18) L 03/05/19 05:26 Creatinine 0.71 mg/dL (0.55-1.3) 03/05/19 05:26 Glucose 182 mg/dL (74-106) H 03/05/19 05:26 Total Bilirubin 0.8 mg/dL (0.2-1.0) 03/01/19 20:00 AST 11 U/L (15-37) L 03/01/19 20:00 ALT 19 U/L (12-78) 03/01/19 20:00 Alkaline Phosphatase 136 U/L (45-117) H 03/01/19 20:00 Lipase 246 U/L (73-393) 03/01/19 20:00 Home Medications: Amitriptyline [Elavil*] 50 mg PO BEDTIME 11/09/18 Duloxetine [Cymbalta *] 60 mg PO DAILY 11/09/18 Gabapentin [Neurontin*] 300 mg PO TID 11/09/18 Glimepiride [Amaryl*] 4 mg PO BID 11/09/18 Metformin ER [Glucophage ER*] 1,000 mg PO BID 11/09/18 Metoprolol Tartrate [Lopressor*] 50 mg PO DAILY 11/09/18 Pantoprazole [Protonix Tab*] 40 mg PO DAILY 11/09/18 Atorvastatin Calcium [Lipitor*] 20 mg PO BEDTIME 03/02/19 Pioglitazone HCl 45 mg PO DAILY 03/02/19 Insulin Glargine Human [Lantus*] 15 units SQ BEDTIME #5 ml 03/05/19 Insulin Glargine Human [Lantus*] 30 units SQ DAILY WITH BREAKFAST #5 ml Lisinopril [Prinivil*] 20 mg PO DAILY #30 tab 03/05/19 New Medications: Insulin Glargine Human [Lantus*] 15 units SQ BEDTIME #5 ml Insulin Glargine Human [Lantus*] 30 units SQ DAILY WITH BREAKFAST #5 ml Lisinopril [Prinivil*] 20 mg PO DAILY #30 tab Patient Discharge Instructions: Please follow up with the primary care physician in 1 week. Blood sugar check: Please check your fasting blood sugar every morning. Please also check your blood sugars 2 hr after you eat lunch and 2 hr after you eat dinner, 4 times a week. Please record these numbers on that log sheet provided to you. Make sure to take this log sheet to your primary care physician on your next visit. Please return to the emergency room for worsening symptoms. Diet: ADA Activity: Ad natalie Time spent managing pt's care (in minutes): 55
[2019-03-05] MEDS ORDERED: INSULIN GLARGINE 100 UNITS/ML SQ SCH (21:00)
[2019-03-06] MEDS ORDERED: LISINOPRIL 20 MG TAB PO SCH (09:00)
[2019-03-06 14:26] VITALS: BP 94/52; TEMP 97
[2019-03-06 14:45] VITALS: BMI 33.2
[2019-03-06 14:59] VITALS: O2SAT 96
== END 2019-03-05 18:32 | disposition home or self-care (01) | DRG 638 ==
LOC: ER 19:20 → ERHOLD 22:46 → 3RD-ICU 23:15 → 4TH 03-03 17:04
PROVIDERS: ADMIT Internal Medicine; ATTEND Family Medicine
DX: E11.10 Type 2 diabetes mellitus with ketoacidosis without coma (principal); N17.9 Acute kidney failure, unspecified; N30.00 Acute cystitis without hematuria; E87.1 Hypo-osmolality and hyponatremia; E87.0 Hyperosmolality and hypernatremia; E11.40 Type 2 diabetes mellitus with diabetic neuropathy, unspecified; I10 Essential (primary) hypertension; F03.90 Unspecified dementia, unspecified severity, without behavioral disturbance, psychotic disturbance, mood disturbance, and anxiety; E87.6 Hypokalemia; I95.9 Hypotension, unspecified; E78.2 Mixed hyperlipidemia; E66.9 Obesity, unspecified; Z68.34 Body mass index [BMI] 34.0-34.9, adult; Z91.81 History of falling; Z88.5 Allergy status to narcotic agent
CPT/HCPCS: 36415; 51702; 70450; 71045; 80048; 80076; 81003; 81015; 82010; 82550; 82553; 82805; 82947; 82962; 83036; 83605; 83690; 84145; 84484; 85025; 85610; 85730; 87040; 87086; 87088; 93005; 96365; 96366; 96375; 97110; 97116; 97163; 97530; 99285; J0696; J1644; J7030

== ENCOUNTER 2021-04-20 15:58 | Inpatient (IN) | payer OTHER ==
[2021-04-20 17:57] LABS: Basophils % 0.7 % (0-1.3); Hematocrit 45.6 % (36.0-45.0); Lymphocytes % 11.5 % (15.3-44.8); MPV 8.2 fL (7.6-11.3); RBC Red Blood Cell Count 5.63 M/uL (3.86-4.86)
[2021-04-20 18:03] LABS: Protime INR 1.04
[2021-04-20 18:41] LABS: ALT/SGPT 62 U/L (12-78); AST/SGOT 107 U/L (15-37); Albumin 3.8 g/dL (3.4-5.0); Alkaline Phosphatase 141 U/L (45-117); BUN Blood Urea Nitrogen 23 mg/dL (7-18); Bicarbonate 28 mmol/L (21-32); Bilirubin Direct 0.3 mg/dL (0-0.2); Bilirubin Total 0.8 mg/dL (0.2-1.0); Ferritin 514.8 ng/mL (8-388); Glucose Level 242 mg/dL (74-106); Potassium 4.6 mmol/L (3.5-5.1); Protein, Total 8.6 g/dL (6.4-8.2); Sodium Level 131 mmol/L (136-145); Troponin (Emerg Dept Use Only) < 0.02 ng/mL (0.0-0.045)
--- NOTE | 2021-04-20 18:47 | RAD REPORT ---
EXAM DESCRIPTION: RAD - Chest Single View - 04/20/2021 6:27 pm CLINICAL HISTORY: DYSPNEA COMPARISON: Chest Single View dated 03/01/2019; Chest Single View dated 11/08/2018 FINDINGS: No evidence of edema or pneumonia. The heart size is within normal limits.No acute osseous abnormality. No significant pleural effusions or pneumothorax. IMPRESSION: No acute cardiopulmonary disease.
[2021-04-20 18:48] LABS: Blood Morphology Comment NOT SEEN (NOT SEEN); Platelet Estimate ADEQ; White Blood Cell Scan OK (OK)
[2021-04-20 22:25] LABS: Lipase 188 U/L (73-393)
[2021-04-20 23:00] LABS: Urine Blood Negative (Negative); Urine Glucose Negative (Negative); Urine Protein 2+ (Negative); Urine Specific Gravity >=1.030 (1.005-1.030)
--- NOTE | 2021-04-20 23:20 | EDPHYS ---
Physician Documentation [facility] Name: Lucia Naidu Age: 65 yrs Sex: Female : 1955 Arrival Date: 04/20/2021 Time: 15:59 Bed 17 Private MD: ED Physician Elliot Marquez HPI: 04/20 23:07 This 65 yrs old Female presents to ER via Ambulatory with complaints of devin Urinary Problem - dark, Cough, Vomiting - foamy, Fall Injury - unsteady, Chest Pain. 23:07 The patient or guardian reports cough, that is intermittent, difficulty breathing, flu devin symptoms, arthralgias, low-grade fever, myalgias, no appetite. Onset: The symptoms/episode began/occurred 4 day(s) ago. Severity of symptoms: At their worst the symptoms were moderate, in the emergency department the symptoms are actually worse. Modifying factors: The symptoms are alleviated by nothing, the symptoms are aggravated by nothing. Associated signs and symptoms: Pertinent positives: fever, nausea, rhinorrhea, sore throat, vomiting. The patient has not experienced similar symptoms in the past. Historical: - Allergies: 17:24 Codeine; jl7 17:24 Morphine; jl7 - PMHx: 17:24 Dementia; Diabetes - NIDDM; Hyperlipidemia; Hypertension; neuropathy; jl7 - Immunization history:: Client reports receiving the 1st dose of the Covid vaccine, Moderna. - Social history:: Smoking status: Patient denies any tobacco usage or history of. ROS: 23:08 Constitutional: Negative for fever, chills, and weight loss, Eyes: Negative for injury, devin pain, redness, and discharge, ENT: Negative for injury, pain, and discharge, Neck: Negative for injury, pain, and swelling, Respiratory: Negative for shortness of breath, cough, wheezing, and pleuritic chest pain, Abdomen/GI: Negative for abdominal pain, nausea, vomiting, diarrhea, and constipation, Back: Negative for injury and pain, : Negative for injury, bleeding, discharge, and swelling, Skin: Negative for injury, rash, and discoloration, Psych: Negative for depression, anxiety, suicide ideation, homicidal ideation, and hallucinations, Allergy/Immunology: Negative for hives, rash, and allergies, Endocrine: Negative for neck swelling, polydipsia, polyuria, polyphagia, and marked weight changes, Hematologic/Lymphatic: Negative for swollen nodes, abnormal bleeding, and unusual bruising. 23:08 Cardiovascular: Positive for palpitations. 23:08 Respiratory: Positive for cough, shortness of breath, at rest. 23:08 : Positive for small amounts, foul smelling urine. 23:08 MS/extremity: Positive for decreased range of motion, pain, of the right arm, left arm, right leg and left leg. 23:08 Skin: Positive for pallor. Exam: 23:08 Constitutional: This is a well developed, well nourished patient who is awake, alert, devin and in no acute distress. Head/Face: Normocephalic, atraumatic. Eyes: Pupils equal round and reactive to light, extra-ocular motions intact. Lids and lashes normal. Conjunctiva and sclera are non-icteric and not injected. Cornea within normal limits. Periorbital areas with no swelling, redness, or edema. ENT: Nares patent. No nasal discharge, no septal abnormalities noted. Tympanic membranes are normal and external auditory canals are clear. Oropharynx with no redness, swelling, or masses, exudates, or evidence of obstruction, uvula midline. Mucous membranes moist. Neck: Trachea midline, no thyromegaly or masses palpated, and no cervical lymphadenopathy. Supple, full range of motion without nuchal rigidity, or vertebral point tenderness. No Meningismus. Chest/axilla: Normal chest wall appearance and motion. Nontender with no deformity. No lesions are appreciated. Abdomen/GI: Soft, non-tender, with normal bowel sounds. No distension or tympany. No guarding or rebound. No evidence of tenderness throughout. Back: No spinal tenderness. No costovertebral tenderness. Full range of motion. Skin: Warm, dry with normal turgor. Normal color with no rashes, no lesions, and no evidence of cellulitis. Neuro: Awake and alert, GCS 15, oriented to person, place, time, and situation. Cranial nerves II-XII grossly intact. Motor strength 5/5 in all extremities. Sensory grossly intact. Cerebellar exam normal. Normal gait. Psych: Awake, alert, with orientation to person, place and time. Behavior, mood, and affect are within normal limits. 23:08 Cardiovascular: Rate: tachycardic, Rhythm: regular, Pulses: Pulses are 4+ in bilateral radial, brachial, femoral, popliteal, posterior tibial and and dorsalis pedis arteries.. Heart sounds: normal, normal S1and S2, no S3 or S4, no murmur, no rub, no gallop, Edema: is not appreciated, JVD: is not appreciated. Vital Signs: 17:17 BP 113 / 77; Pulse 107; Resp 22; Temp 98.4(O); Pulse Ox 93% on R/A; Weight 122.47 kg; jl7 Height 5 ft. 10 in. (177.80 cm); Pain 10/10; 21:56 BP 118 / 72; Pulse 102; Resp 18; Pulse Ox 94% on R/A; ld1 22:55 BP 122 / 76; Pulse 101; Resp 17; Pulse Ox 93% on R/A; ld1 23:46 BP 137 / 86; Pulse 102; Resp 18; Pulse Ox 94% on R/A; ld1 17:17 Body Mass Index 38.74 (122.47 kg, 177.80 cm) 7 MDM: 21:54 Patient medically screened. devin 23:12 Differential Diagnosis: sepsis, flu, Bronchitis Influenza Upper Respiratory Infection devin Sinusitis Pharyngitis Viral Syndrome Pneumonia. Data reviewed: vital signs, nurses notes, lab test result(s), EKG, radiologic studies, CT scan, plain films. Data interpreted: lpn cma: rate is 101 beats/min, rhythm is regular, Pulse oximetry: on room air 93L(s) per nasal canula, is 93 %. Test interpretation: by ED physician or midlevel provider: ECG, plain radiologic studies. Counseling: I had a detailed discussion with the patient and/or guardian regarding: the historical points, exam findings, and any diagnostic results supporting the discharge/admit diagnosis, lab results, radiology results, the need for further work-up and treatment in the hospital. 04/20 17:34 Order name: BMP [facility] 04/20 17:34 Order name: Blood Culture Adult (2) [facility] 04/20 17:34 Order name: C-Reactive Protein [facility] 04/20 17:34 Order name: CBC with Diff; Complete Time: 19:45 [facility] 04/20 17:34 Order name: D-Dimer; Complete Time: 18:41 [facility] 04/20 17:34 Order name: Ferritin; Complete Time: 22:47 [facility] 04/20 17:34 Order name: LFT's; Complete Time: 22:47 [facility] 04/20 17:34 Order name: Lactate; Complete Time: 18:41 [facility] 04/20 17:34 Order name: PT-INR; Complete Time: 18:41 [facility] 04/20 17:34 Order name: Procalcitonin; Complete Time: 19:45 [facility] 04/20 17:34 Order name: Ptt, Activated; Complete Time: 18:41 [facility] 04/20 17:34 Order name: Troponin (emerg Dept Use Only); Complete Time: 22:47 [facility] 04/20 17:34 Order name: Urine Microscopic Only [facility] 04/20 17:34 Order name: Basic Metabolic Panel; Complete Time: 22:47 [facility] 04/20 17:34 Order name: Blood Culture [facility] 04/20 17:34 Order name: C-Reactive Protein; Complete Time: 22:47 [facility] 04/20 18:48 Order name: CBC Smear Scan; Complete Time: 19:45 [facility] 04/20 20:00 Order name: SARS-COV-2 RT PCR; Complete Time: 21:43 [facility] 04/20 21:58 Order name: Lipase; Complete Time: 22:47 [facility] 04/20 22:59 Order name: Urine Dipstick-Ancillary; Complete Time: 23:08 [facility] 04/20 23:02 Order name: Urine Culture 2 04/20 23:02 Order name: Urine Culture [facility] 04/21 03:01 Order name: CBC with Automated Diff [facility] 04/21 03:03 Order name: D-Dimer [facility] 04/21 03:25 Order name: Hemoglobin A1c [facility] 04/21 03:28 Order name: Comprehensive Metabolic Panel [facility] 04/21 03:28 Order name: Lipid Profile [facility] 04/21 03:28 Order name: C-Reactive Protein [facility] 04/20 17:34 Order name: CXR XRAY; Complete Time: 19:45 [facility] 04/20 17:34 Order name: EKG; Complete Time: 17:34 [facility] 04/20 17:34 Order name: Cardiac monitoring; Complete Time: 00:57 [facility] 04/20 17:34 Order name: Droplet/Contact Precautions; Complete Time: 19:25 [facility] 04/20 17:34 Order name: EKG - Nurse/Tech; Complete Time: 19:24 [facility] 04/20 17:34 Order name: IV Start; Complete Time: 19:24 [facility] 04/20 17:34 Order name: Labs collected and sent; Complete Time: 19:24 [facility] 04/20 17:34 Order name: O2 Per Protocol; Complete Time: 19:24 [facility] 04/20 17:34 Order name: O2 Sat Monitoring; Complete Time: 19:24 [facility] 04/20 17:34 Order name: Urine Dipstick-Ancillary (obtain specimen); Complete Time: 23:48 [facility] 04/20 23:03 Order name: CT Traumagram (Head C Spine CAP wo con) devin 04/21 03:28 Order name: T4 Free [facility] 04/21 03:28 Order name: Magnesium [facility] 04/21 03:28 Order name: Thyroid Stimulating Hormone [facility] 04/21 03:28 Order name: Ferritin [facility] 04/21 09:21 Order name: Glucose, Ancillary Testing [facility] 04/21 11:32 Order name: Cortisol [facility] 04/21 13:15 Order name: Glucose, Ancillary Testing EDMS Administered Medications: 23:45 Drug: REGEN-COV Dose Pack 120 mg/mL-120 mg/mL (EUA) 1 vials Route: IV; Rate: per ld1 protocol; Site: right antecubital; 04/21 00:56 Follow up: IV Status: Completed infusion [facility] 04/20 23:45 Drug: NS 0.9% 1000 ml Route: IV; Rate: 1 bolus; Site: right antecubital; ld1 04/21 00:56 Follow up: IV Status: Completed infusion [facility] 04/20 23:46 Drug: Pepcid (famotidine) 20 mg Route: IVP; Site: right antecubital; ld1 23:46 Follow up: Response: No adverse reaction ld1 23:46 Drug: Aspirin Chewable Tablet 162 mg Route: PO; ld1 23:46 Follow up: Response: No adverse reaction ld1 23:46 Drug: Rocephin (cefTRIAXone) 1 grams Route: IV; Rate: per protocol; Site: right ld1 antecubital; 23:46 Follow up: Response: No adverse reaction; IV Status: Completed infusion ld1 23:46 Drug: Zithromax (azithromycin) 500 mg Route: PO; ld1 23:47 Follow up: Response: No adverse reaction ld1 04/21 00:56 Drug: NS 0.9% 1000 ml Route: IV; Rate: 100 ml/hr; Site: right antecubital; bs2 00:57 Follow up: IV Status: Infusion continued upon admission bs2 Disposition Summary: 04/20/21 23:20 Hospitalization Ordered Hospitalization Status: Inpatient Admission devin Provider: Yogesh Martínez cha Condition: Fair devin Problem: new devin Symptoms: have improved devin Bed/Room Type: Standard devin Location: Telemetry/MedSurg (Inpatient)(04/21/21 13:52) dw Room Assignment: [facility](04/21/21 13:52) dw Diagnosis - Weakness devin - Acute kidney failure, unspecified devin - Repeated falls devin - Coronavirus infection, unspecified devin - Type 2 diabetes mellitus with hyperglycemia devin - Other obesity devin - UTI/ Urinary tract infection, site not specified devin Forms: - Medication Reconciliation Form devin - SBAR form devin Signatures: Dispatcher [employer] EDMS Damaris Kovacs, JUDE-C GENERAL LOT ATTENDANT-Vicyk Valdez RN RN mw Woody, Diana RN Elliot Torres MD MD cha Roszak, Josh, PA PA jr8 Lobo Rod FNP-Helio KONGP-ClaLiv Box RN RN jl7 Roselia Ledezma RN RN ld1 Delia Donaldson RN RN bs2 Corrections: (The following items were deleted from the chart) 04/20 18:51 17:34 CORONAVIRUS+MR.LAB.BRZ ordered. EDMS EDMS 21:58 21:55 LIPASE+C.LAB.BRZ ordered. EDMS EDMS 23:29 23:20 Telemetry/MedSurg (observation) devin 23:29 23:20 devin 04/21 04:50 04/20 17:34 Esparza ordered. jrKristie bs2 04/21 13:52 04/20 23:29 BR ER HOLD [facility] 04/21 13:52 04/20 23:29 ERHOLD- [facility]
--- NOTE | 2021-04-20 23:20 | ER ---
Nurse's Notes [facility] Name: Lucia Naidu Age: 65 yrs Sex: Female : 1955 Arrival Date: 04/20/2021 Time: 15:59 Bed 17 Private MD: Diagnosis: Weakness;Acute kidney failure, unspecified;Repeated falls;Coronavirus infection, unspecified;Type 2 diabetes mellitus with hyperglycemia;Other obesity;UTI/ Urinary tract infection, site not specified Presentation: 04/20 17:17 Chief complaint: Patient states: Low back pain, dark urine, burning with urination, jl7 bilateral leg cramps, productive cough, SOB x 3 weeks. Coronavirus screen: Client denies travel out of the [place] in the last 14 days. congestion, cough unrelated to allergies, shortness of breath, Client presents with at least one sign or symptom that may indicate coronavirus-19. Standard/surgical mask placed on the client. Provider contacted for isolation considerations. Ebola Screen: No symptoms or risks identified at this time. Initial Sepsis Screen: Does the patient meet any 2 criteria? RR > 20 per min. HR > 90 bpm. Yes Does the patient have a suspected source of infection? Yes: Productive cough/pneumonia. Risk Assessment: Do you want to hurt yourself or someone else? Patient reports no desire to harm self or others. Onset of symptoms was March 28, 2021. Care prior to arrival: None. 17:17 Method Of Arrival: Ambulatory jl7 17:17 Acuity: BEN 3 jl7 Triage Assessment: 17:24 General: Appears in no apparent distress. uncomfortable, Behavior is calm, cooperative, jl7 appropriate for age. Pain: Complains of pain in low back area Pain currently is 10 out of 10 on a pain scale. Neuro: Level of Consciousness is awake, alert, obeys commands, Oriented to person, place, time, situation. Cardiovascular: Denies chest pain, Patient's skin is warm and dry. Respiratory: Airway is patent Respiratory effort is even, unlabored, Respiratory pattern is symmetrical, tachypnea. GI: Reports nausea, vomiting. : Reports burning with urination, pain in right flank(s). Derm: Skin is. Historical: - Allergies: 17:24 Codeine; jl7 17:24 Morphine; jl7 - PMHx: 17:24 Dementia; Diabetes - NIDDM; Hyperlipidemia; Hypertension; neuropathy; jl7 - Immunization history:: Client reports receiving the 1st dose of the Covid vaccine, Moderna. - Social history:: Smoking status: Patient denies any tobacco usage or history of. Screenin:56 Abuse screen: Denies threats or abuse. Denies injuries from another. Nutritional ld1 screening: No deficits noted. Tuberculosis screening: No symptoms or risk factors identified. Fall Risk None identified. Assessment: 21:56 General: Appears in no apparent distress. comfortable, Behavior is calm, cooperative, ld1 appropriate for age. Pain: Denies pain. Neuro: Level of Consciousness is awake, alert, obeys commands, Oriented to person, place, time, situation, Appropriate for age. Cardiovascular: Capillary refill < 3 seconds Patient's skin is warm and dry. Respiratory: Airway is patent Respiratory effort is even, unlabored, Respiratory pattern is regular, symmetrical. GI: Abdomen is round non-distended, Reports nausea, vomiting. : Reports burning with urination, pain with urination. EENT: No signs and/or symptoms were reported regarding the EENT system. Derm: No signs and/or symptoms reported regarding the dermatologic system. Musculoskeletal: No signs and/or symptoms reported regarding the musculoskeletal system. 22:55 Reassessment: Patient appears in no apparent distress at this time. Patient and/or ld1 family updated on plan of care and expected duration. Pain level reassessed. Patient is alert, oriented x 3, equal unlabored respirations, skin warm/dry/pink. 23:46 Reassessment: Patient appears in no apparent distress at this time. Patient and/or ld1 family updated on plan of care and expected duration. Pain level reassessed. Sitting in chair with daughter at side. Denies concerns at this time. RR 18. Vital Signs: 17:17 BP 113 / 77; Pulse 107; Resp 22; Temp 98.4(O); Pulse Ox 93% on R/A; Weight 122.47 kg; jl7 Height 5 ft. 10 in. (177.80 cm); Pain 10/10; 21:56 BP 118 / 72; Pulse 102; Resp 18; Pulse Ox 94% on R/A; ld1 22:55 BP 122 / 76; Pulse 101; Resp 17; Pulse Ox 93% on R/A; ld1 23:46 BP 137 / 86; Pulse 102; Resp 18; Pulse Ox 94% on R/A; ld1 17:17 Body Mass Index 38.74 (122.47 kg, 177.80 cm) 7 ED Course: 15:59 Patient arrived in ED. am2 17:23 Triage completed. jl7 17:24 Arm band placed on right wrist. Patient placed in waiting room, Patient notified of 7 wait time. 17:38 Initial lab(s) drawn, by ED staff, sent to lab. First set of blood cultures drawn by ED jl7 staff. Second set of blood cultures drawn by ED staff, EKG done, by ED staff, reviewed by Saw RODRIGES. Inserted saline lock: 20 gauge in right antecubital area, using aseptic technique. Blood collected. 18:27 CXR XRAY In Process Unspecified. EDMS 21:47 Roselia Ledezma RN is Primary Nurse. ld1 21:53 Elliot Marquez MD is Attending Physician. devin 21:56 Patient has correct armband on for positive identification. Bed in low position. Call ld1 light in reach. Side rails up X2. Pulse ox on. NIBP on. Warm blanket given. 21:56 No provider procedures requiring assistance completed. ld1 23:13 Yogesh Martínez MD is Hospitalizing Provider. [facility] 04/21 00:12 CT Traumagram (Head C Spine CAP wo con) In Process Unspecified. EDMS 00:56 Urine Culture Sent. bs2 00:57 Blood Culture Sent. bs2 00:57 BMP Sent. bs2 00:57 Blood Culture Adult (2) Sent. bs2 00:57 C-Reactive Protein Sent. bs2 04:54 Urine Culture Sent. bs2 Administered Medications: 04/20 23:45 Drug: REGEN-COV Dose Pack 120 mg/mL-120 mg/mL (EUA) 1 vials Route: IV; Rate: per ld1 protocol; Site: right antecubital; 04/21 00:56 Follow up: IV Status: Completed infusion bs2 04/20 23:45 Drug: NS 0.9% 1000 ml Route: IV; Rate: 1 bolus; Site: right antecubital; ld1 04/21 00:56 Follow up: IV Status: Completed infusion bs2 04/20 23:46 Drug: Pepcid (famotidine) 20 mg Route: IVP; Site: right antecubital; ld1 23:46 Follow up: Response: No adverse reaction ld1 23:46 Drug: Aspirin Chewable Tablet 162 mg Route: PO; ld1 23:46 Follow up: Response: No adverse reaction ld1 23:46 Drug: Rocephin (cefTRIAXone) 1 grams Route: IV; Rate: per protocol; Site: right ld1 antecubital; 23:46 Follow up: Response: No adverse reaction; IV Status: Completed infusion ld1 23:46 Drug: Zithromax (azithromycin) 500 mg Route: PO; ld1 23:47 Follow up: Response: No adverse reaction ld1 04/21 00:56 Drug: NS 0.9% 1000 ml Route: IV; Rate: 100 ml/hr; Site: right antecubital; bs2 00:57 Follow up: IV Status: Infusion continued upon admission bs2 Outcome: 04/20 23:20 Decision to Hospitalize by Provider. [facility] 04/21 15:02 Patient left the ED. tr6 Signatures: Dispatcher [employer] EDMS Elliot Marquez MD MD cha Leal, Jahala RN RN jl7 Sylwia Mackey amRoselia Avendano RN RN ld1 Naheed Richards RN RN tr6 Delia Donaldson RN RN bs2
[2021-04-20] MEDS ORDERED: NA CHLORIDE 0.9% 1,000 ML ONE (23:32)
[2021-04-20] MEDS ORDERED: ASPIRIN 81 MG CHEWABLE TABLET ONE (23:32)
[2021-04-20] MEDS ORDERED: FAMOTIDINE 20 MG/2 ML VIAL IV ONE (23:32)
[2021-04-20] MEDS ORDERED: AZITHROMYCIN 250 MG TAB ONE (23:32)
[2021-04-20] MEDS ORDERED: CASIRIVIMAB/IMDEVIMAB 10 ML VIAL ONE (23:33)
[2021-04-20] MEDS ORDERED: CEFTRIAXONE/SWI 1gm 1 GM/10 ML SYR ONE (23:33)
[2021-04-20 23:36] LABS: Urine Volume 1 mL
[2021-04-20 23:38] LABS: Urine Bacteria 20-50 /HPF (<20); Urine RBC <5 /HPF (NONE SEEN); Urine Urothelial Cells <5 /HPF (NONE SEEN)
[2021-04-20] MEDS ORDERED: NA CHLORIDE 0.9% 50 ML ONE (23:49)
[2021-04-20] MEDS ORDERED: NA CHLORIDE 0.9% 250 ML ONE (23:49)
--- NOTE | 2021-04-21 00:27 | P.HP ---
Certification for Inpatient Patient admitted to: Observation With expected LOS: <2 Midnights Patient will require the following post-hospital care: None Practitioner: I am a practitioner with admitting privileges, knowledge of patient current condition, hospital course, and medical plan of care. Services: Services provided to patient in accordance with Admission requirements found in Title 42 Section 412.3 of the Code of Federal Regulations <Lobo Rod - Last Filed: 04/21/21 00:23> Patient History Date of Service: 04/21/21 Reason for admission: ADITHYA, UTI, Covid History of Present Illness: 65-year-old female with history of diabetes mellitus type 2, hypertension, hyperlipidemia presents emergency department for generalized weakness, shortness of breath. Patient was evaluated in the emergency department labs were significant for sodium 131 chloride 97 creatinine 1.78 GFR 29 glucose 242 ferritin 514 C-reactive protein 45.7 urinalysis with 20-50 bacteria trace leukocyte. Patient Covid positive today for the first time reports receiving 1 dose of the Moderna vaccine approximately 1 week ago patient's baseline renal function with GFR around 70-80, patient does appear very dehydrated. ED provider wishes to admit for further evaluation and management of dehydration, acute kidney injury. - Past Medical/Surgical History Diabetic: Yes -: DM -: HTN -: neuropathy -: GERD -: UTI -: recurrent falls -: acute renal injury -: hyperlipidemia -: blood clot -: dementia -: cholecystectomy -: hysterectomy Psychosocial/ Personal History: Lives with family - Family History Mother -: Heart disease, Hypertension, Diabetes Notes: had triple bypass Sister -: Heart disease, Diabetes, Cancer Brother -: Liver disease - Social History Smoking Status: Never smoker Alcohol use: No CD- Drugs: No Caffeine use: Yes <Lobo Rod - Last Filed: 04/21/21 00:23> Date of Service: 04/21/21 <Yogesh Martínez - Last Filed: 04/21/21 16:07> Allergies codeine Adverse Reaction (Verified 03/02/19 01:47) Nausea/Vomiting morphine Adverse Reaction (Verified 03/02/19 01:47) Nausea/Vomiting Home Medications: Amitriptyline [Elavil*] 50 mg PO BEDTIME 11/09/18 Duloxetine [Cymbalta *] 60 mg PO DAILY 11/09/18 Gabapentin [Neurontin*] 300 mg PO TID 11/09/18 Glimepiride [Amaryl*] 4 mg PO BID 11/09/18 Metformin ER [Glucophage ER*] 1,000 mg PO BID 11/09/18 Metoprolol Tartrate [Lopressor*] 50 mg PO DAILY 11/09/18 Pantoprazole [Protonix Tab*] 40 mg PO DAILY 11/09/18 Atorvastatin Calcium [Lipitor*] 20 mg PO BEDTIME 03/02/19 Pioglitazone HCl 45 mg PO DAILY 03/02/19 Insulin Glargine Human [Lantus*] 15 units SQ BEDTIME #5 ml 03/05/19 Insulin Glargine Human [Lantus*] 30 units SQ DAILY WITH BREAKFAST #5 ml 03/05/19 lisinopriL [Prinivil*] 20 mg PO DAILY #30 tab 03/05/19 Review of Systems 10-point ROS is otherwise unremarkable General: Chills, Weakness, Malaise Respiratory: Cough, Dry, Shortness of Breath <Lobo Rod - Last Filed: 04/21/21 00:23> Physical Examination - Physical Exam General: Alert, In no apparent distress, Oriented x3 HEENT: Atraumatic, PERRLA, Mucous membr. moist/pink, EOMI, Sclerae nonicteric Neck: Supple, 2+ carotid pulse no bruit, No LAD, Without JVD or thyroid abnormality Respiratory: Clear to auscultation bilaterally, Normal air movement Cardiovascular: Regular rate/rhythm, Normal S1 S2 Gastrointestinal: Normal bowel sounds, No tenderness Musculoskeletal: No tenderness Integumentary: No rashes Neurological: Normal speech, Normal strength at 5/5 x4 extr, Normal tone, Normal affect Lymphatics: No axilla or inguinal lymphadenopathy - Studies Laboratory Data (last 24 hrs) 04/20/21 21:54: Lipase Cancelled 04/20/21 17:45: PT 12.0, INR 1.04, APTT 28.9 04/20/21 17:45: WBC 8.40, Hgb 14.9, Hct 45.6 H, Plt Count 229 04/20/21 17:45: Sodium 131 L, Potassium 4.6, BUN 23 H, Creatinine 1.78 H, Glucose 242 H, Total Bilirubin 0.8, AST 107 H, ALT 62, Alkaline Phosphatase 141 H, Lipase 188 <Lobo Rod - Last Filed: 04/21/21 00:23> - Studies Laboratory Data (last 24 hrs) 04/21/21 02:16: Sodium 132 L, Potassium 4.4, BUN 25 H, Creatinine 1.62 H, Glucose 259 H, Magnesium 1.7 L, Total Bilirubin 0.7, AST 84 H, ALT 51, Alkaline Phosphatase 116, Triglycerides 135, Cholesterol 69, HDL Cholesterol 16 L, Cho lesterol/HDL Ratio 4.31 04/21/21 02:16: WBC 6.70 D, Hgb 12.8, Hct 38.8, Plt Count 184 04/20/21 21:54: Lipase Cancelled 04/20/21 17:45: PT 12.0, INR 1.04, APTT 28.9 04/20/21 17:45: WBC 8.40, Hgb 14.9, Hct 45.6 H, Plt Count 229 04/20/21 17:45: Sodium 131 L, Potassium 4.6, BUN 23 H, Creatinine 1.78 H, Glucose 242 H, Total Bilirubin 0.8, AST 107 H, ALT 62, Alkaline Phosphatase 141 H, Lipase 188 <Yogesh Martínez - Last Filed: 04/21/21 16:07> Assessment and Plan - Plan Assessment: ADITHYA secondary to dehydration Dyspnea, cough secondary to COVID-19 viral illness Diabetes mellitus type 2 with hyperglycemia UTI Hypertension Recurrent falls, weakness Plan: ADITHYA secondary to dehydration: Patient received 1 L normal saline bolus in the ER continue with NS at 100 cc/h, repeat chemistry in the morning. Anticipate clinical improvement over the course the next 12-24 hrs. Consult nephrology as necessary. Dyspnea, cough secondary to COVID-19 viral illness: Patient without any oxygen requirement at this time, received Regeneron in the emergency department. Continue with oral supplements/vitamins, daily room air saturations. Patient stable from discharge from a Covid standpoint at this time. Patient was partially vaccinated with 1 dose of the moderna vaccine approximately 1 week ago. Reports symptoms started approximately a week ago as well. Diabetes mellitus type 2 with hyperglycemia: AC at bedtime Accu-Chek, sliding scale insulin therapy. A1c with morning labs. UTI: Continue Rocephin, urine culture ordered. Hypertension: Continue home medications adjust as necessary based on renal function. Recurrent falls, weakness: PT consult in place to evaluate further. Patient with history of falls in the past. DVT PPX: Heparin Code status: Full Discharge Plan: Home Plan to discharge in: 24 Hours - Advance Directives Does patient have a Living Will: Yes Does patient have a Durable POA for Healthcare: No - Code Status/Comfort Care Code Status Assessed: Yes (Full code) Critical Care: No Time Spent Managing Pts Care (In Minutes): 55 <Lobo Rod - Last Filed: 04/21/21 00:23> - Plan Patient seen and examined this morning on rounds. Agree with plan of care as noted above Patient reports decreased p.o. intake for several days, appears dry on exam Agree with IV fluids, ADITHYA likely prerenal Nephrology consulted Diabetic, A1c elevated Confirm home medications. Insulin sliding scale, Lantus Possible UTI, empiric coverage, follow-up urine culture s/p regeneron in ED for COVID <Yogesh Martínez - Last Filed: 04/21/21 16:07>
[2021-04-21] MEDS ORDERED: ONDANSETRON 4 MG/2 ML VIAL IV PRN (01:39)
[2021-04-21] MEDS: NA CHLORIDE 0.9% 1,000 ML IV SCH ×4 (01:45→21:39)
[2021-04-21 02:58] LABS: Absolute Lymphocytes (CBC) 0.9 K/uL (0.7-4.9); Basophils % 0.3 % (0-1.3); Hematocrit 38.8 % (36.0-45.0); Lymphocytes % 13.6 % (15.3-44.8); MPV 8.3 fL (7.6-11.3); RBC Red Blood Cell Count 4.77 M/uL (3.86-4.86)
[2021-04-21 03:23] LABS: Albumin 3.3 g/dL (3.4-5.0); Bilirubin Total 0.7 mg/dL (0.2-1.0); Ferritin 530.4 ng/mL (8-388); Magnesium 1.7 mg/dL (1.8-2.4); Potassium 4.4 mmol/L (3.5-5.1); Protein, Total 7.3 g/dL (6.4-8.2); Thyroid Stimulating Hormone 1.62 uIU/mL (0.360-3.740)
[2021-04-21] MEDS: INSULIN -REGULAR HUMAN 50 UNIT/0.5 ML ML SQ SCH ×4 (07:30→21:00)
[2021-04-21] MEDS ORDERED: CEFTRIAXONE/SWI 1gm 1 GM/10 ML SYR ONE (08:05)
[2021-04-21] MEDS ORDERED: HEPARIN 5000 UNIT/ML 1 ML VIAL ONE (08:05)
[2021-04-21] MEDS: HEPARIN 5000 UNIT/ML 1 ML VIAL SQ SCH ×2 (09:00→22:21)
[2021-04-21] MEDS: CEFTRIAXONE/SWI 1gm 1 GM/10 ML SYR IV SCH (09:00)
[2021-04-21] MEDS ORDERED: CEFTRIAXONE 1 GM/NS 50 ML 1 GM/50 ML BAG IV SCH (09:00)
[2021-04-21] MEDS: ACETAMINOPHEN 500 MG TAB PO PRN (09:31)
[2021-04-21] MEDS ORDERED: ACETAMINOPHEN 500 MG TAB ONE (09:48)
--- NOTE | 2021-04-21 11:20 | RAD REPORT ---
EXAM DESCRIPTION: CT - Head C Spine Cap Wo Con - 04/21/2021 2:11 am CLINICAL HISTORY: 65 years, Female, PAIN COMPARISON: 03/01/2019 FINDINGS: Multiple transaxial tomograms of the brain were obtained from the base of the skull to the vertex without contrast. 2-D multiplanar reformats and the coronal and sagittal plane were performed and reviewed. Multiple axial CT images through the cervical spine were obtained at 2 mm slice thickness at 2 mm int erval reconstruction. In addition 2-D multiplanar reformats and the sagittal coronal plane were perfo rmed and reviewed. Noncontrast images of the chest, abdomen and pelvis were performed utilizing 5 mm slice thickness at 5 mm interval reconstruction from the lung apices to the ischial without administration of IV contras t. In addition multiplanar reformats in the coronal and sagittal plane were obtained and reviewed. This exam was performed according to our departmental dose-optimization protocol, which includes auto mated exposure control, adjustment of the mA and/or kV according to patient size and/or use of iterat jasper reconstruction technique. CT head: Brain parenchyma as well as the pavon and white matter differentiation demonstrate to be unre markable. There is mild brain atrophy especially along the frontal lobes. Minimal intracranial vascul ar calcifications. There is no midline shift and/or mass effect. There is no evidence for acute hemor rhage and/or infarction. Lateral ventricles and cisterns displace normal appearance. No intra or extra axial fluid collections were seen. The calvarium is intact with no evidence for fracture. The v isualized portions of the paranasal sinuses and orbits demonstrate to be clear. CT C-spine: The alignment, vertebral body heights, and disc spaces are normal. There is no evidence of fracture or subluxation. There are no significant degenerative changes intervertebral discs. The spinal canal demonstrate no evidence for significant stenosis. Neural foramina demonstrate to be unre markable. There is minimal uncovertebral degenerative changes C2/C3 C4/C5 C5/C6 C6/C7 greater left th an right side. There is no prevertebral soft tissue swelling. Sagittal coronal reformatted images d emonstrate no subluxation or bony abnormalities. Chest: The lungs parenchyma demonstrate minimal subpleural ground glass opacities within the upper mi d lower lung zones with a questionable minimal early crazy paving. No significant masses/or consolida tions are identified. The trachea mainstem bronchus demonstrate to be normal. There is no significa nt pleural and/or pericardial effusions. The heart is normal in size. Minimal coronary artery calci fications. The thoracic aorta is unremarkable. There is no significant mediastinal and/or hilar lymph adenopathy. The axillary regions demonstrate to be clear. The bone windows demonstrate no significa nt skeletal lesions. Abdomen and and pelvis: Grossly the unopacified liver demonstrate heterogeneous decreased attenuation suggesting the possibility of a inhomogeneous fatty filtration, slightly more pronounced along the p osterior right hepatic lobe and inferiorly. Otherwise liver, pancreas, spleen and adrenal glands demo nstrate to be unremarkable, no focal lesions are noted. The gallbladder was not visualized correspond ing most likely to previous cholecystectomy. There is no biliary duct dilatation. Grossly the unopacified kidneys demonstrate to be within normal limits. There is no evidence for neph rolithiasis and/or hydronephrosis. Grossly the unopacified stomach, small bowel and large bowel demonstrate to be within normal limits. There is no evidence for bowel dilatation and/or free air. There is minimal diverticulosis within the left site colon The urinary bladder was partially distended with no gross abnormalities. The uterus is absent. Ther e are no adnexal masses. The aorta demonstrate atherosclerotic disease. There is no retroperitone al lymphadenopathy. There is no evidence for ascites and/or significant abnormal fluid collections. T he bone windows demonstrate mild diffuse bony osteopenia. Degenerative disc disease is noted within t he lower lumbar spine as well as L1/L2. Small umbilical hernia containing omentum. IMPRESSION: Mild brain atrophy especially along the frontal lobes. No evidence for acute intracranial hemorrhage. No evidence for acute fracture or subluxation of the cervical spine. Commonly reported imaging features of COVID-19 pneumonia are present. Other processes such as influen za pneumonia and organizing pneumonia, as can be seen with drug toxicity and connective tissue diseas e, can cause a similar imaging pattern. (Reference: https://pubs.rsna.org/doi/full/10.1148/ryct.41714 49217). Heterogeneous decreased attenuation of the liver suggesting the possibility of a inhomogeneous fatty filtration, slightly more pronounced along the posterior right hepatic lobe and inferiorly. If concer n further evaluation with contrasted study and/or MRI could be of assistance. Status post cholecystectomy and hysterectomy. Small umbilical hernia containing omentum. Degenerative disc disease lumbar spine. Electronically signed by: Dandre Whalen MD 04/21/2021 12:22 AM CDT Due to temporary technical issues with the PACS/Fluency reporting system, reports are being signed by the in house radiologist without review as a courtesy to ensure prompt reporting. The interpreting r adiologist is fully responsible for the content of the report.
[2021-04-21] MEDS ORDERED: MAGNESIUM SULFATE 1 gm IVPB 1 GM/100 ML BAG IV ONE ×2 (11:51→13:32)
[2021-04-21] MEDS ORDERED: INSULIN -REGULAR HUMAN 50 UNIT/0.5 ML ML ONE (13:32)
[2021-04-21] MEDS ORDERED: NA CHLORIDE 0.9% 1,000 ML ONE (13:32)
--- NOTE | 2021-04-21 13:45 | CON ---
Date of Consultation: 04/21/2021 Reason For Consultation: Elevated BUN and creatinine, hyponatremia. History Of Present Illness: This is a pleasant 65-year-old female with significant past medical history of diabetes complicated with neuropathy, hypertension, the patient came to the hospital complaining from shortness of breath, generalized weakness, found to have elevation in BUN and creatinine, creatinine 1.7 with hyponatremia, sodium 131. For that reason, we have been consulted. The patient denied taking any nonsteroidal, no recent IV contrast. Reviewing the record, the patient being on NO inhibitor, lisinopril, and metformin. No other insulting medications. Over the night, the patient was started on gentle hydration and blood pressure stabilized. Kidney function, creatinine trended down from 1.7 to 1.6, sodium trended up from 131 to 132. The patient does not have any shortness of breath. Blood sugar being elevated. Past Medical History: Includes; 1. Diabetes complicated with neuropathy. 2. Hypertension. 3. Hyperlipidemia. 4. Recurrent fall. 5. Dementia. 6. Cholecystectomy. 7. Hysterectomy. Family History: Positive for coronary artery disease and liver disease. Social History: Denied smoking. Denied drinking. Denied drugs abuse. Home Medications: Include amitriptyline, duloxetine, glimepiride, metformin, metoprolol, atorvastatin, insulin, and lisinopril. Review of Systems: The patient is confused, non-obtainable. Physical Examination: Vital Signs: When I saw the patient; blood pressure 118/80, pulse of 112. Chest: Clear to auscultation. Heart: S1, S2. Systolic murmur. Abdomen: Soft, nontender. Extremities: No edema. Neuro: Alert. No focality. Pleasantly confused, not oriented. Laboratory Data: Sodium 132, potassium 4.4, bicarb 27, BUN 25, creatinine 1.6, GFR of 32, calcium 7.4, magnesium 1.7. CRP 41, albumin 3.3, TSH 1.6, cortisol 28. Urinalysis; +2 protein, bacteria of 50, negative for infection. COVID testing was positive. Assessment And Plan: 1. Acute kidney injury secondary to prerenal, dehydration. I am going to go ahead and start the patient on gentle hydration and we will monitor the patient closely. We will send for protein creatinine and we will hold lisinopril and metformin for the time being, and we will monitor the patient. The acute component is mostly secondary to poor intake, superimposed with NO inhibitor and glucose diuresis secondary to uncontrolled diabetes. 2. Hypertension with the presence of acute kidney injury and low blood pressure. Hold all blood pressure medications, especially NO inhibitor. We will monitor the patient. 3. Hyponatremia, depletional. We will start the patient on IV hydration, and we will follow up. We will send for urine electrolyte and we will follow up. 4. Hyponatremia depletional, superimposed with glucose diuresis, corrected sodium around 133 currently. 5. COVID pneumonia as by primary. Time spent examining the patient [id number] placing order discussing with the patient reviewing data discussing the case with all of our subspecialty including hospitalist 75 minutes GABBIE Voice ID: [id number] Report ID: [id number] MTDD
[2021-04-21] MEDS ORDERED: BENZONATATE 100 MG CAP PO PRN (15:59)
[2021-04-21] MEDS ORDERED: GLUCAGON 1 MG/VIAL IM PRN (16:05)
[2021-04-21] MEDS ORDERED: D50W 25 GM/50 ML VIAL IV PRN (16:14)
--- NOTE | 2021-04-21 16:27 | EKG ---
Test Date: 2021-04-20 Test Time: 17:36:11 [employer]otive Repair Technician: HORACE MEASUREMENT RESULTS: Intervals: Rate: 108 GA: 150 QRSD: 76 QT: 354 QTc: 474 [place]: P: 15 GA: 150 QRS: -36 T: 64 INTERPRETIVE STATEMENTS: Sinus tachycardia Left axis deviation Abnormal ECG Compared to ECG 03/01/2019 20:20:05 Left-axis deviation now present Sinus rhythm no longer present Electronically Signed On 04-21-21 16:24:07 CDT by Jos Saucedo
[2021-04-21] MEDS: INSULIN GLARGINE 100 UNITS/ML SQ SCH (17:00)
[2021-04-21] MEDS: ASCORBIC ACID 500 MG TABLET PO SCH ×2 (17:03→22:20)
--- NOTE | 2021-04-21 17:15 | RAD REPORT ---
EXAM DESCRIPTION: US - Renal Ultrasound-Complete - 04/21/2021 5:02 pm CLINICAL HISTORY: ADITHYA COMPARISON: No comparisons FINDINGS: The right kidney measures approximately 9.7 x 5.0 x 3.8 cm. The left kidney measures appr oximately 9.2 x 4.9 x 4.3 cm. Cortical thickness is normal for each kidney. Cortical echogenicity mahi ears to be within range of normal. Cortical detail is limited due to body habitus affects. No hydrone phrosis is present. Although limited, the exam does not demonstrate any renal mass. Bladder was contracted limiting assessment. IMPRESSION: Exam is limited by body habitus affects. However, no hydronephrosis is present and no ma ss lesion identifiable. Susy or
--- NOTE | 2021-04-21 21:11 | P.CNS ---
Date of Consult: 04/21/21 Reason for Consult: COVID penumonia Chief Complaint: ADITHYA, UTI, Covid History of Present Illness: [id number] . metabolic synd,AW COVID penumonia/renal failure and elevated LFT Allergies codeine Adverse Reaction (Verified 03/02/19 01:47) Nausea/Vomiting morphine Adverse Reaction (Verified 03/02/19 01:47) Nausea/Vomiting Home Medications: Amitriptyline [Elavil*] 100 mg PO BEDTIME 11/09/18 Glimepiride [Amaryl*] 4 mg PO BID 11/09/18 Metformin ER [Glucophage ER*] 1,000 mg PO BID 11/09/18 Metoprolol Tartrate [Lopressor*] 50 mg PO DAILY 11/09/18 Atorvastatin Calcium [Lipitor*] 80 mg PO BEDTIME 03/02/19 Pioglitazone HCl 45 mg PO DAILY 03/02/19 Furosemide 20 mg PO DAILYPRN PRN 04/21/21 lisinopriL [Prinivil*] 40 mg PO DAILY 04/21/21 - Past Medical/Surgical History Diabetic: Yes -: DM -: HTN -: neuropathy -: GERD -: UTI -: recurrent falls -: acute renal injury -: hyperlipidemia -: blood clot -: dementia -: cholecystectomy -: hysterectomy Psychosocial/ Personal History: Lives with family - Family History Mother Medical History: Heart disease, Hypertension, Diabetes Notes: had triple bypass Sister Medical History: Heart disease, Diabetes, Cancer Brother Medical History: Liver disease - Social History Alcohol use: No CD- Drugs: No Caffeine use: Yes Review of Systems General: Weakness Respiratory: Shortness of Breath Physical Examination Temp Pulse Resp BP Pulse Ox 98.1 F 91 H 18 90/51 L 97 04/21/21 16:00 04/21/21 16:00 04/21/21 16:00 04/21/21 16:00 04/21/21 16:00 General: Alert, In no apparent distress, Oriented x3, Cooperative Laboratory Data (last 24 hrs) 04/21/21 02:16: Sodium 132 L, Potassium 4.4, BUN 25 H, Creatinine 1.62 H, Glucose 259 H, Magnesium 1.7 L, Total Bilirubin 0.7, AST 84 H, ALT 51, Alkaline Phosphatase 116, Triglycerides 135, Cholesterol 69, HDL Cholesterol 16 L, Cholesterol/HDL Ratio 4.31 04/21/21 02:16: WBC 6.70 D, Hgb 12.8, Hct 38.8, Plt Count 184 04/20/21 21:54: Lipase Cancelled 04/20/21 17:45: Sodium 131 L, Potassium 4.6, BUN 23 H, Creatinine 1.78 H, Glucose 242 H, Total Bilirubin 0.8, AST 107 H, ALT 62, Alkaline Phosphatase 141 H, Lipase 188 - Problems (1) Pneumonia due to COVID-19 virus Current Visit: Yes Status: Acute Plan: age 65 with metablic synd. AW mild covid penumonia. ARF/pt was on Patrica inhibitor/ poss DC 1-2 days
[2021-04-21] MEDS: AMITRIPTYLINE 50 MG TAB PO SCH (22:20)
[2021-04-21] MEDS: ATORVASTATIN 80 MG TAB PO SCH (22:20)
[2021-04-21 23:42] LABS: Urine Appearance CLEAR (Clear); Urine Bilirubin NEGATIVE (Negative); Urine Blood NEGATIVE (Negative); Urine Color YELLOW (Yellow); Urine Glucose NEGATIVE (Negative); Urine Protein TRACE (Negative); Urine Specific Gravity <=1.005 (1.005-1.030)
[2021-04-21 23:44] LABS: Urine Protein/Creatinine Ratio 1.03 ratio (<0.15)
[2021-04-21 23:45] LABS: Urine Microscopic Reflex ORDER UMIC
[2021-04-22 00:12] LABS: Urine Bacteria <20 /HPF (<20); Urine RBC <5 /HPF (NONE SEEN)
[2021-04-22 05:21] LABS: Absolute Lymphocytes (CBC) 0.8 K/uL (0.7-4.9); Basophils % 0.5 % (0-1.3); Hematocrit 37.8 % (36.0-45.0); Lymphocytes % 15.1 % (15.3-44.8); RBC Red Blood Cell Count 4.66 M/uL (3.86-4.86)
[2021-04-22 05:50] LABS: Albumin 2.9 g/dL (3.4-5.0); Bilirubin Total 0.8 mg/dL (0.2-1.0); Ferritin 615.3 ng/mL (8-388); Magnesium 1.9 mg/dL (1.8-2.4); Phosphorus 1.7 mg/dL (2.5-4.9); Potassium 3.6 mmol/L (3.5-5.1); Protein, Total 7.1 g/dL (6.4-8.2); Thyroid Stimulating Hormone 1.03 uIU/mL (0.360-3.740); Uric Acid 5.5 mg/dL (2.6-6.0)
[2021-04-22] MEDS: NA CHLORIDE 0.9% 1,000 ML IV SCH ×2 (07:39→07:46)
[2021-04-22] MEDS: INSULIN -REGULAR HUMAN 50 UNIT/0.5 ML ML SQ SCH ×4 (07:47→21:00)
[2021-04-22] MEDS: CEFTRIAXONE/SWI 1gm 1 GM/10 ML SYR IV SCH (07:47)
[2021-04-22] MEDS: VITAMIN D 1000 UNIT TAB PO SCH (07:48)
[2021-04-22] MEDS: THIAMINE HCL 100 MG TABLET PO SCH (07:48)
[2021-04-22] MEDS: ZINC SULFATE 220 MG CAP PO SCH (07:49)
[2021-04-22] MEDS: ASPIRIN EC 81 MG TAB PO SCH (07:49)
[2021-04-22] MEDS: ASCORBIC ACID 500 MG TABLET PO SCH ×4 (07:49→21:11)
[2021-04-22] MEDS: HEPARIN 5000 UNIT/ML 1 ML VIAL SQ SCH ×2 (07:51→21:26)
[2021-04-22] MEDS ORDERED: POTASSIUM PHOS IN 0.9 % NACL 15 MMOL/250 ML BAG IV ONE (12:39)
--- NOTE | 2021-04-22 14:49 | P.PN ---
Subjective Date of Service: 04/22/21 Chief Complaint: ADITHYA, UTI, Covid c/o Cough and SOB Review of Systems General: Weakness Respiratory: Cough, Shortness of Breath Physical Examination - Vital Signs Temperature: 98.5 F Blood Pressure: 116/67 Pulse: 95 Respirations: 22 Pulse Ox (%): 91 - Physical Exam General: Alert, Oriented x3, Cooperative, Moderate distress Assessment & Plan - Problems (Diagnosis) (1) Pneumonia due to COVID-19 virus Current Visit: Yes Status: Acute Plan: Improving C/o cough / Nc DC palnning/ Add Advair onDischarge3 plus Gneg rods in urune/ Renal functionnormal/CRP elevated/ Qulaify for Barcitnib if O2 requiement increases/ Add nebs
--- NOTE | 2021-04-22 14:57 | P.PN ---
Subjective Date of Service: 04/22/21 Chief Complaint: ADITHYA, UTI, Covid Subjective: No new changes (Feels her breathing is about the same, maybe a little bit better. Still with generalized weakness, has not gotten out of bed. Concerned about being discharged home soon, states children both have Covid pneumonia.) Review of Systems 10-point ROS is otherwise unremarkable Physical Examination - Vital Signs Temperature: 98.5 F Blood Pressure: 116/67 Pulse: 95 Respirations: 22 Pulse Ox (%): 91 Assessment & Plan Physician Review Additional Text: Physical Exam General: Alert, NAD, appears fatigued HEENT: Normal conjunctiva, sclera anicteric Respiratory: Nonlabored respirations on 3 L nasal cannula Cardiovascular: Regular rate/rhythm, Normal S1 S2 Gastrointestinal: Soft, nontender, nondistended Musculoskeletal: No joint tenderness Integumentary: No rashes Problem list ADITHYA secondary to dehydration Acute hypoxemic respiratory failure secondary to COVID-19 pneumonia Diabetes mellitus type 2 with hyperglycemia UTI, acute cystitis Hypertension Recurrent falls, weakness Initially without much improvement, with elevated creatinine despite IV fluids. Nephrology consulted, now with some improvement. Suspect prerenal/dehydration A1c elevated, hyperglycemia due to steroids as well Continue insulin sliding scale Seems to be breathing comfortably today on 3 L nasal cannula. Received Regeneron in ED, received 1 dose of Materna vaccine approximately 1 week ago. Inflammatory markers increased today Concern for UTI, Rocephin started 04/21 for empiric coverage Preliminary urine culture growing gram-negative rods PT consulted. Generalized weakness, history of recurrent falls VTE: Heparin Code: Full Dispo: Anticipate discharge home tomorrow, pending further improvement of in flammatory markers, stable oxygen requirement, and PT evaluation Time Spent Managing Pts Care (In Minutes): 35
[2021-04-22] MEDS: METHYLPREDNISOLONE 125 MG INJ IV SCH ×2 (15:14→21:11)
[2021-04-22] MEDS: IVERMECTIN 3 MG TABLET PO SCH (15:15)
--- NOTE | 2021-04-22 15:28 | PN ---
Date of Progress Note: 04/22/2021 Subjective: The patient was admitted with acute kidney injury and COVID pneumonia. Her acute kidney injury is secondary to prerenal, NO inhibitor, and metformin. The patient was started on IV hydration. The patient also had hyponatremia. Physical Examination: Vital Signs: Blood pressure 104/58, pulse of 93, afebrile. The patient still had good urine output of 1300. Chest: Clear to auscultation. Heart: S1, S2. Regular. Abdomen: Soft, nontender. Extremity: No edema. Neurologic: Alert. No focality. Laboratory Data: WBC 5, H and H 12.6/37.8. Sodium 135, potassium 3.6, bicarb 26, BUN 16, creatinine down to 1.1 from 1.7, GFR of 46, phosphorus 1.7, calcium 7.4. PTH 189. Vitamin D still pending. PC ratio of 1. Serology still pending. Renal ultrasound, small size kidney 9.7/9.2. No hydronephrosis. Assessment And Plan: 1. Acute kidney injury secondary to prerenal, dehydration secondary to poor intake superimposed with glucose diuresis, superimposed with NO inhibitor use. Small size kidney, proteinuric, nonnephrotic. I am going to keep holding NO inhibitor. We will continue hydrating the patient and we will follow up. Keep holding metformin for the time being. 2. Hyponatremia, depletional, corrected, is currently 136-137. We will continue hydration. 3. Hypophosphatasemia. We will supplement. 4. Hypokalemia. We will supplement. 5. Hypertension, controlled, optimal with the presence of acute kidney injury. Keep holding NO inhibitor for the time being. Time spent examining the patient [id number] placing order discussing with the patient reviewing data discussing the case with all of our subspecialty including hospitalist 45 minutes GABBIE Voice ID: [id number] Report ID: [id number] NATHANAEL
[2021-04-22] MEDS: INSULIN GLARGINE 100 UNITS/ML SQ SCH (16:22)
[2021-04-22 18:31] LABS: Rheumatoid Factor NEG (NEG)
[2021-04-22] MEDS: IPRATROPIUM BROM 0.5MG/2.5ML NEB SCH (19:35)
[2021-04-22] MEDS: AMITRIPTYLINE 50 MG TAB PO SCH (21:11)
[2021-04-22] MEDS: ATORVASTATIN 80 MG TAB PO SCH (21:11)
[2021-04-23] MEDS: IPRATROPIUM BROM 0.5MG/2.5ML NEB SCH ×4 (01:25→19:50)
[2021-04-23] MEDS: NA CHLORIDE 0.9% 1,000 ML IV SCH (04:00)
[2021-04-23 05:42] LABS: Absolute Lymphocytes (CBC) 0.7 K/uL (0.7-4.9); Basophils % 0.6 % (0-1.3); Hematocrit 39.9 % (36.0-45.0); Lymphocytes % 24.2 % (15.3-44.8); RBC Red Blood Cell Count 4.86 M/uL (3.86-4.86)
[2021-04-23 06:02] LABS: Albumin 2.8 g/dL (3.4-5.0); Bilirubin Total 0.6 mg/dL (0.2-1.0); C-Reactive Protein 93.5 mg/L (<3.00); Ferritin 753.2 ng/mL (8-388); Phosphorus 2.6 mg/dL (2.5-4.9); Potassium 3.8 mmol/L (3.5-5.1); Protein, Total 7.3 g/dL (6.4-8.2)
--- NOTE | 2021-04-23 06:22 | P.PN ---
Subjective Date of Service: 04/23/21 Chief Complaint: ADITHYA, UTI, Covid Subjective: No new changes Physical Examination - Vital Signs Temperature: 98.1 F Blood Pressure: 126/87 Pulse: 78 Respirations: 20 Pulse Ox (%): 94 - Physical Exam General: Other (appears as her stated age) HEENT: Atraumatic Neck: Supple Respiratory: Normal air movement Cardiovascular: No rubs, No murmurs Gastrointestinal: Soft and benign Integumentary: No warmth Urinary: Other (no bladder distention) Assessment And Plan - Plan 1. Acute kidney injury secondary to prerenal, dehydration secondary to poor intake superimposed with glucose diuresis, superimposed with NO inhibitor use. Small size kidney, proteinuric, nonnephrotic. improved. continue to hold NO inhibitor. [place] by mouth fluid intake. 2. Klebsiella UTI. on Augmentin. 3. Pseudohyponatremia. Corrected serum sodium level within normal limits. Monitor. [place] by mouth fluid intake as above. Advised on adequate by mouth solid food intake. Keep serum potassium at 4.0 or higher. Avoid hypomagnesemia 4. COVID PNA. On O2 supplementation. Mngt per primary team. 5. Hypokalemia. KCl 20 meq by mouth repletion today. 5. Dispo. anticipate DC in 1-2 days.
--- NOTE | 2021-04-23 07:40 | RAD REPORT ---
EXAM DESCRIPTION: RAD - Chest Single View - 04/23/2021 5:14 am CLINICAL HISTORY: hypoxia worse, COVID, eval pulm edema/effusion COMPARISON: April 20 TECHNIQUE: AP portable chest image was obtained 04/23/2021 5:14 am . FINDINGS: Lung volumes are reduced compared to the prior study which accentuates the lung parenchyma l findings. Even when adjusting for the lung volume difference, there has been progressive lung paren chymal disease. New interstitial and alveolar opacities are present in the right upper lobe and at th e left lung base. Probable progression in the right lung base as well. Trachea is midline. Heart and vasculature are normal. No measurable pleural effusion and no pneumotho rax. No acute bony abnormality seen. No acute aortic findings suspected. IMPRESSION: Worsening bilateral COVID-19 pneumonia findings.
[2021-04-23] MEDS: CEFTRIAXONE/SWI 1gm 1 GM/10 ML SYR IV SCH (08:44)
[2021-04-23] MEDS: INSULIN -REGULAR HUMAN 50 UNIT/0.5 ML ML SQ SCH ×4 (08:44→20:26)
[2021-04-23] MEDS: THIAMINE HCL 100 MG TABLET PO SCH (08:45)
[2021-04-23] MEDS: VITAMIN D 1000 UNIT TAB PO SCH (08:45)
[2021-04-23] MEDS: ASPIRIN EC 81 MG TAB PO SCH (08:45)
[2021-04-23] MEDS: ASCORBIC ACID 500 MG TABLET PO SCH ×4 (08:46→20:15)
[2021-04-23] MEDS: ZINC SULFATE 220 MG CAP PO SCH (08:46)
[2021-04-23] MEDS: METHYLPREDNISOLONE 125 MG INJ IV SCH ×2 (08:46→20:15)
[2021-04-23] MEDS: HEPARIN 5000 UNIT/ML 1 ML VIAL SQ SCH ×2 (08:46→20:15)
[2021-04-23] MEDS ORDERED: POTASSIUM CL SA 10 MEQ TAB PO ONE (13:17)
[2021-04-23] MEDS: PIOGLITAZONE 15 MG TAB PO SCH (14:15)
--- NOTE | 2021-04-23 16:03 | P.PN ---
Subjective Date of Service: 04/23/21 Chief Complaint: ADITHYA, UTI, Covid Subjective: Improving (feels slightly better today, worked with PT yesterday, with some SOB still, generalized weakness, appetite improved slightly) Review of Systems 10-point ROS is otherwise unremarkable Physical Examination - Vital Signs Temperature: 96.9 F Blood Pressure: 105/59 Pulse: 76 Respirations: 25 Pulse Ox (%): 93 - Studies Microbiology Data (last 24 hrs): 04/20/21 22:55 Clean Catch Urine [place] Count - Final >100,000 CFU/ML. 04/20/21 22:55 Clean Catch Urine - Final Klebsiella Pneumoniae Assessment & Plan Physician Review Additional Text: Physical Exam General: Alert, NAD, appears fatigued HEENT: Normal conjunctiva, sclera anicteric Respiratory: Nonlabored respirations on 3 L nasal cannula Cardiovascular: Regular rate/rhythm, Normal S1 S2 Gastrointestinal: Soft, nontender, nondistended Integumentary: No rashes Problem list ADITHYA secondary to dehydration Acute hypoxemic respiratory failure secondary to COVID-19 pneumonia Diabetes mellitus type 2 with hyperglycemia UTI, acute cystitis Hypertension Recurrent falls, weakness Initially without much improvement, with elevated creatinine despite IV fluids. Nephrology consulted, now with some improvement. Suspect prerenal/dehydration A1c elevated, hyperglycemia due to steroids as well Continue insulin sliding scale, restart home pioglitazone Seems to be breathing comfortably today on 3 L nasal cannula. Received Regeneron in ED, received 1 dose of Moderna vaccine approximately 1 week ago. Inflammatory markers elevated Concern for UTI, Rocephin started 04/21 for empiric coverage. klebs growing, switch to PO PT consulted. Generalized weakness, history of recurrent falls VTE: Heparin Code: Full Dispo: Anticipate discharge home tomorrow, pending further improvement of inflammatory markers, stable oxygen requirement, and PT evaluation Time Spent Managing Pts Care (In Minutes): 35
[2021-04-23] MEDS: INSULIN GLARGINE 100 UNITS/ML SQ SCH (16:22)
[2021-04-23] MEDS: AMITRIPTYLINE 50 MG TAB PO SCH (20:14)
[2021-04-23] MEDS: ATORVASTATIN 80 MG TAB PO SCH (20:15)
[2021-04-23] MEDS: AMOX/K CLAV 500 MG TAB PO SCH (20:15)
[2021-04-24] MEDS: IPRATROPIUM BROM 0.5MG/2.5ML NEB SCH ×4 (01:25→20:10)
[2021-04-24 05:53] LABS: Absolute Lymphocytes (CBC) 0.9 K/uL (0.7-4.9); Basophils % 0.3 % (0-1.3); Hematocrit 38.7 % (36.0-45.0); Lymphocytes % 9.3 % (15.3-44.8); MPV 8.3 fL (7.6-11.3); RBC Red Blood Cell Count 4.79 M/uL (3.86-4.86)
[2021-04-24 06:08] VITALS: BMI 37.2
[2021-04-24] MEDS ORDERED: D50W 25 GM/50 ML SYRINGE IV PRN (06:33)
[2021-04-24 07:57] LABS: Bilirubin Total 0.6 mg/dL (0.2-1.0); C-Reactive Protein 49.1 mg/L (<3.00); Ferritin 645.8 ng/mL (8-388); Phosphorus 2.3 mg/dL (2.5-4.9); Potassium 3.9 mmol/L (3.5-5.1); Protein, Total 7.5 g/dL (6.4-8.2)
[2021-04-24] MEDS: INSULIN -REGULAR HUMAN 50 UNIT/0.5 ML ML SQ SCH ×4 (08:13→21:00)
[2021-04-24] MEDS: ASPIRIN EC 81 MG TAB PO SCH (08:15)
[2021-04-24] MEDS: ASCORBIC ACID 500 MG TABLET PO SCH ×4 (08:16→21:05)
[2021-04-24] MEDS: HEPARIN 5000 UNIT/ML 1 ML VIAL SQ SCH ×2 (08:17→21:06)
[2021-04-24] MEDS: AMOX/K CLAV 500 MG TAB PO SCH ×2 (08:17→21:05)
[2021-04-24] MEDS: THIAMINE HCL 100 MG TABLET PO SCH (08:17)
[2021-04-24] MEDS: METHYLPREDNISOLONE 125 MG INJ IV SCH ×2 (08:17→21:06)
[2021-04-24] MEDS: ZINC SULFATE 220 MG CAP PO SCH (08:17)
[2021-04-24] MEDS: VITAMIN D 1000 UNIT TAB PO SCH (08:17)
[2021-04-24] MEDS: INSULIN GLARGINE 100 UNITS/ML SQ SCH (08:26)
[2021-04-24] MEDS: PIOGLITAZONE 15 MG TAB PO SCH (08:27)
--- NOTE | 2021-04-24 11:37 | P.PN ---
Subjective Date of Service: 04/24/21 Chief Complaint: ADITHYA, UTI, Covid Subjective: Worsening (Oxygen requirement increased overnight, CXR yesterday with worsening Covid disease. Patient feels more short of breath, more difficult to catch her breath. Urinating without issue, and had 3 soft bowel movements overnightnot diarrhea) Review of Systems 10-point ROS is otherwise unremarkable Physical Examination - Vital Signs Temperature: 96.9 F Blood Pressure: 124/86 Pulse: 82 Respirations: 18 Pulse Ox (%): 94 - Studies Microbiology Data (last 24 hrs): 04/20/21 22:55 Clean Catch Urine [place] Count - Final >100,000 CFU/ML. 04/20/21 22:55 Clean Catch Urine - Final Klebsiella Pneumoniae Assessment & Plan Physician Review Additional Text: Physical Exam General: Alert, appears fatigued HEENT: Normal conjunctiva, sclera anicteric Respiratory: Mild labored respirations on 15 L nasal cannula Cardiovascular: Regular rate/rhythm, Normal S1 S2 Gastrointestinal: Soft, nontender, nondistended Integumentary: No rashes Problem list ADITHYA secondary to dehydration Acute hypoxemic respiratory failure secondary to COVID-19 pneumonia Diabetes mellitus type 2 with hyperglycemia UTI, acute cystitis Hypertension Recurrent falls, weakness Hypoxia worsening secondary to worsening COVID-19 pneumonia Continue treatment per protocol, IV steroids, vitamin supplementation, oxygen supplementation Patient did receive Regeneron in ED, and 1 dose of moderna vaccine 1 week ago Pulmonology consulted Inflammatory markers slightly improved Also with UTI, secondary to Klebsiella. Received Rocephin on 04/21, switch to p.o. Augmentin on 04/23 CXR (04/23): Worsening Covid pneumonia Titrate oxygen as needed Renal function mildly worsened today, likely prerenal location slight decreased p.o. intake yesterday. Nephrology following Hyperglycemia worsened by steroid use. Restarted pioglitazone, and titrate Lantus for better control VTE: Heparin Code: Full Dispo: anticipate dc home in ~3 days, will need home O2 Time Spent Managing Pts Care (In Minutes): 40
[2021-04-24] MEDS ORDERED: POTASSIUM CL SA 10 MEQ TAB PO ONE (13:03)
[2021-04-24] MEDS: IVERMECTIN 3 MG TABLET PO SCH (14:46)
--- NOTE | 2021-04-24 15:33 | P.PN ---
Subjective Date of Service: 04/24/21 Chief Complaint: ADITHYA, UTI, Covid Subjective Pt with COVID pneumoia, , Nphrology consulted for ADITHYA Today Cr 1.3 now on 15 liters of O2 Have diarrhea, will start Imodium Physical exam general: AAOX3, obese, in mild distress Neck; Supple, No elevated JVD chest CTAB, no rlaes or wheezes hear: RRR, normal S1,2 no murmur or rub Chest: CTAB, no rales or wheezes Abdomen: Soft , Nt Extremities No edema or ulcer Acute kidney injury cr stable IVF on hold avoid NSAID Klebsiella UTI. on Augmentin. COVID PNA. High O2 demand cont steroids Prognosis guarded Total time spent 45 min Physical Examination - Vital Signs Temperature: 96.9 F Blood Pressure: 124/86 Pulse: 82 Respirations: 18 Pulse Ox (%): 94
[2021-04-24] MEDS ORDERED: INSULIN GLARGINE 100 UNITS/ML SQ SCH (17:00)
[2021-04-24] MEDS: ATORVASTATIN 80 MG TAB PO SCH (21:05)
[2021-04-24] MEDS: AMITRIPTYLINE 50 MG TAB PO SCH (21:06)
[2021-04-24] MEDS: LOPERAMIDE HCL 2 MG CAPSULE PO PRN (21:31)
[2021-04-24] MEDS: MELATONIN 5 MG TABLET PO PRN (21:31)
[2021-04-25] MEDS: IPRATROPIUM BROM 0.5MG/2.5ML NEB SCH ×4 (01:25→19:30)
[2021-04-25] MEDS: LOPERAMIDE HCL 2 MG CAPSULE PO PRN ×3 (05:13→16:57)
[2021-04-25 05:58] LABS: Absolute Lymphocytes (CBC) 0.5 K/uL (0.7-4.9); Basophils % 0.2 % (0-1.3); Hematocrit 38.2 % (36.0-45.0); Lymphocytes % 4.4 % (15.3-44.8); MPV 8.2 fL (7.6-11.3); RBC Red Blood Cell Count 4.75 M/uL (3.86-4.86)
[2021-04-25 06:28] LABS: Albumin 3.2 g/dL (3.4-5.0); C-Reactive Protein 22.6 mg/L (<3.00); Phosphorus 2.6 mg/dL (2.5-4.9); Potassium 4.2 mmol/L (3.5-5.1)
--- NOTE | 2021-04-25 07:38 | RAD REPORT ---
EXAM DESCRIPTION: RAD - Chest Single View - 04/25/2021 7:14 am CLINICAL HISTORY: Worsening hypoxia, Covidpneumonia COMPARISON: April 23 TECHNIQUE: AP portable chest image was obtained 04/25/2021 7:14 am . FINDINGS: Lung volumes are low. Interstitial and alveolar opacities are present. Right lung field is not substantially different. There is significantly lower right hemithorax lung volume compared Apru 20. Lateral lower left lung field actually appears to improved slightly. Interval change is minima l. Heart and vasculature are normal. No measurable pleural effusion and no pneumothorax. No acute bony abnormality seen. No acute aortic findings suspected. IMPRESSION: Low lung volume examination shows no substantial change to the right lung field and stab le or minimal improvement in the lower left lung field.
[2021-04-25] MEDS: INSULIN -REGULAR HUMAN 50 UNIT/0.5 ML ML SQ SCH ×4 (07:51→21:24)
[2021-04-25] MEDS: PIOGLITAZONE 15 MG TAB PO SCH (07:52)
[2021-04-25] MEDS: INSULIN GLARGINE 100 UNITS/ML SQ SCH ×2 (07:52→16:57)
[2021-04-25] MEDS: AMOX/K CLAV 500 MG TAB PO SCH ×2 (07:53→21:03)
[2021-04-25] MEDS: ZINC SULFATE 220 MG CAP PO SCH (07:53)
[2021-04-25] MEDS: THIAMINE HCL 100 MG TABLET PO SCH (07:53)
[2021-04-25] MEDS: ASCORBIC ACID 500 MG TABLET PO SCH ×4 (07:53→21:03)
[2021-04-25] MEDS: ASPIRIN EC 81 MG TAB PO SCH (07:53)
[2021-04-25] MEDS: VITAMIN D 1000 UNIT TAB PO SCH (07:53)
[2021-04-25] MEDS: HEPARIN 5000 UNIT/ML 1 ML VIAL SQ SCH ×2 (07:54→21:03)
[2021-04-25] MEDS: METHYLPREDNISOLONE 125 MG INJ IV SCH ×2 (07:54→21:06)
--- NOTE | 2021-04-25 11:54 | P.PN ---
Subjective Date of Service: 04/25/21 Chief Complaint: ADITHYA, UTI, Covid Subjective Pt with COVID pneumoia, , Nephrology consulted for ADITHYA Today Cont to require High O2 CXR: no significant changes Physical exam general: AAOX3, obese, in mild distress Neck; Supple, No elevated JVD chest CTAB, no rlaes or wheezes hear: RRR, normal S1,2 no murmur or rub Chest: CTAB, no rales or wheezes Abdomen: Soft , Nt Extremities No edema or ulcer Acute kidney injury cr stable IVF on hold avoid NSAID Klebsiella UTI. on Augmentin. COVID PNA. High O2 demand cont steroids Prognosis guarded Total time spent 45 min Physical Examination - Vital Signs Temperature: 97.4 F Blood Pressure: 144/64 Pulse: 88 Respirations: 27 Pulse Ox (%): 89
[2021-04-25] MEDS ORDERED: D50W 25 GM/50 ML SYRINGE IV PRN (15:44)
--- NOTE | 2021-04-25 15:48 | P.PN ---
Subjective Date of Service: 04/25/21 Chief Complaint: ADITHYA, UTI, Covid Subjective: No new changes (Feels a little bit better today breathing regalado, still on 15 L, renal function improved, having some diarrhea which is chronic, improved with Imodium. Patient states she takes Imodium scheduled every day for a long time) Review of Systems 10-point ROS is otherwise unremarkable Physical Examination - Vital Signs Temperature: 96.9 F Blood Pressure: 145/71 Pulse: 82 Respirations: 24 Pulse Ox (%): 91 Assessment & Plan Physician Review Additional Text: Physical Exam General: Alert, appears fatigued, sitting up at bedside HEENT: Normal conjunctiva, sclera anicteric Respiratory: Mild labored respirations on 15 L nasal cannula Cardiovascular: Regular rate/rhythm, Normal S1 S2 Gastrointestinal: Soft, nontender, nondistended Integumentary: No rashes Problem list ADITHYA secondary to dehydration Acute hypoxemic respiratory failure secondary to COVID-19 pneumonia Diabetes mellitus type 2 with hyperglycemia UTI, acute cystitis Hypertension Recurrent falls, weakness Hypoxia worsening secondary to worsening COVID-19 pneumonia Continue treatment per protocol, IV steroids, vitamin supplementation, oxygen supplementation Patient did receive Regeneron in ED, and 1 dose of moderna vaccine 1 week ago Pulmonology consulted Inflammatory markers slightly improved Also with UTI, secondary to Klebsiella. Received Rocephin on 04/21, switch to p.o. Augmentin on 04/23 CXR (04/23): Worsening Covid pneumonia Titrate oxygen as needed Renal function improved Hyperglycemia worsened by steroid use. Restarted pioglitazone, and titrate Lantus for better control VTE: Heparin Code: Full Dispo: anticipate dc home in ~3-4 days, will need home O2 Time Spent Managing Pts Care (In Minutes): 35
[2021-04-25 19:04] LABS: Hepatitis C Virus RNA (PCR)log <1.18 log IU/mL
[2021-04-25] MEDS: ATORVASTATIN 80 MG TAB PO SCH (21:03)
[2021-04-25] MEDS: AMITRIPTYLINE 50 MG TAB PO SCH (21:03)
[2021-04-26] MEDS: IPRATROPIUM BROM 0.5MG/2.5ML NEB SCH ×4 (01:05→20:02)
--- NOTE | 2021-04-26 06:34 | P.PN ---
Subjective Date of Service: 04/26/21 Chief Complaint: ADITHYA, UTI, Covid Subjective: Improving (Feels her breathing is slightly better today, still requiring 15 L, appears slightly short of breath, diarrhea slightly improved with Imodium. Reports some slight abdominal muscle soreness with coughing) Review of Systems 10-point ROS is otherwise unremarkable Physical Examination - Vital Signs Temperature: 97.1 F Blood Pressure: 130/56 Pulse: 57 Respirations: 19 Pulse Ox (%): 90 - Studies Microbiology Data (last 24 hrs): 04/20/21 17:45 Blood - Blood Aerobic Blood Culture - Final No growth in 5 days. 04/20/21 17:45 Blood - Blood Anaerobic Blood Culture - Final No growth in 5 days. 04/20/21 17:39 Blood - Blood Aerobic Blood Culture - Final No growth in 5 days. 04/20/21 17:39 Blood - Blood Anaerobic Blood Culture - Final No growth in 5 days. Assessment & Plan Physician Review Additional Text: Physical Exam General: Alert, sitting up in chair HEENT: Normal conjunctiva, sclera anicteric Respiratory: Mild labored respirations on 15 L nasal cannula Cardiovascular: Regular rate/rhythm, Normal S1 S2 Gastrointestinal: Soft, nondistended, slight tenderness upper abdomen Integumentary: No rashes Problem list ADITHYA secondary to dehydration Acute hypoxemic respiratory failure secondary to COVID-19 pneumonia Diabetes mellitus type 2 with hyperglycemia UTI, acute cystitis Hypertension Recurrent falls, weakness Hypoxia worsening secondary to worsening COVID-19 pneumonia Continue treatment per protocol, IV steroids, vitamin supplementation, oxygen supplementation Patient did receive Regeneron in ED, and 1 dose of moderna vaccine 1 week ago Pulmonology consulted Inflammatory markers slightly improved Also with UTI, secondary to Klebsiella. Received Rocephin on 04/21, switch to p.o. Augmentin on 04/23 CXR (04/23): Worsening Covid pneumonia Titrate oxygen as needed Renal function improved Hyperglycemia worsened by steroid use. Restarted pioglitazone, and titrate Lantus for better control VTE: Heparin Code: Full Dispo: anticipate dc home in ~3-4 days, will need home O2 Time Spent Managing Pts Care (In Minutes): 40
[2021-04-26 07:21] LABS: Absolute Lymphocytes (CBC) 0.6 K/uL (0.7-4.9); Basophils % 0.3 % (0-1.3); Hematocrit 38.1 % (36.0-45.0); Lymphocytes % 5.6 % (15.3-44.8); MPV 8.1 fL (7.6-11.3); RBC Red Blood Cell Count 4.77 M/uL (3.86-4.86)
[2021-04-26 07:43] LABS: Albumin 3.1 g/dL (3.4-5.0); C-Reactive Protein 11.4 mg/L (<3.00); Ferritin 381.1 ng/mL (8-388); Phosphorus 2.7 mg/dL (2.5-4.9); Potassium 4.1 mmol/L (3.5-5.1)
[2021-04-26] MEDS: INSULIN -REGULAR HUMAN 50 UNIT/0.5 ML ML SQ SCH ×4 (08:00→21:00)
[2021-04-26] MEDS: PIOGLITAZONE 15 MG TAB PO SCH (08:01)
[2021-04-26] MEDS: INSULIN GLARGINE 100 UNITS/ML SQ SCH ×2 (08:01→16:26)
[2021-04-26] MEDS: METHYLPREDNISOLONE 125 MG INJ IV SCH ×2 (08:01→21:42)
[2021-04-26] MEDS: AMOX/K CLAV 500 MG TAB PO SCH ×2 (08:01→21:47)
[2021-04-26] MEDS: THIAMINE HCL 100 MG TABLET PO SCH (08:01)
[2021-04-26] MEDS: ASPIRIN EC 81 MG TAB PO SCH (08:02)
[2021-04-26] MEDS: ASCORBIC ACID 500 MG TABLET PO SCH ×4 (08:02→21:42)
[2021-04-26] MEDS: VITAMIN D 1000 UNIT TAB PO SCH (08:02)
[2021-04-26] MEDS: HEPARIN 5000 UNIT/ML 1 ML VIAL SQ SCH ×2 (08:02→21:42)
[2021-04-26] MEDS: ZINC SULFATE 220 MG CAP PO SCH (08:02)
[2021-04-26 08:09] LABS: Blood Morphology Comment NOT SEEN (NOT SEEN); Platelet Estimate ADEQ
[2021-04-26] MEDS: MELATONIN 5 MG TABLET PO PRN (21:41)
[2021-04-26] MEDS: AMITRIPTYLINE 50 MG TAB PO SCH (21:41)
[2021-04-26] MEDS: ATORVASTATIN 80 MG TAB PO SCH (21:42)
[2021-04-26 22:37] LABS: HIV AG/AB 4TH GEN Non-reactive (Non-reactive)
[2021-04-27] MEDS: IPRATROPIUM BROM 0.5MG/2.5ML NEB SCH ×4 (01:45→19:25)
[2021-04-27 03:52] LABS: Absolute Lymphocytes (CBC) 0.6 K/uL (0.7-4.9); Basophils % 0.3 % (0-1.3); Hematocrit 37.5 % (36.0-45.0); Lymphocytes % 4.6 % (15.3-44.8); MPV 8.1 fL (7.6-11.3)
[2021-04-27 04:15] LABS: C-Reactive Protein 6.3 mg/L (<3.00); Ferritin 324.3 ng/mL (8-388); Phosphorus 2.3 mg/dL (2.5-4.9); Potassium 3.7 mmol/L (3.5-5.1)
[2021-04-27] MEDS: INSULIN GLARGINE 100 UNITS/ML SQ SCH ×2 (08:27→16:37)
[2021-04-27] MEDS: PIOGLITAZONE 15 MG TAB PO SCH (08:28)
[2021-04-27] MEDS: INSULIN -REGULAR HUMAN 50 UNIT/0.5 ML ML SQ SCH ×4 (08:28→20:50)
[2021-04-27] MEDS: ZINC SULFATE 220 MG CAP PO SCH (08:28)
[2021-04-27] MEDS: THIAMINE HCL 100 MG TABLET PO SCH (08:28)
[2021-04-27] MEDS: VITAMIN D 1000 UNIT TAB PO SCH (08:28)
[2021-04-27] MEDS: ASPIRIN EC 81 MG TAB PO SCH (08:29)
[2021-04-27] MEDS: ASCORBIC ACID 500 MG TABLET PO SCH ×4 (08:29→20:49)
[2021-04-27] MEDS: HEPARIN 5000 UNIT/ML 1 ML VIAL SQ SCH ×2 (08:29→20:49)
[2021-04-27] MEDS: AMOX/K CLAV 500 MG TAB PO SCH ×2 (08:29→20:49)
[2021-04-27] MEDS: METHYLPREDNISOLONE 125 MG INJ IV SCH ×2 (08:29→20:49)
--- NOTE | 2021-04-27 13:54 | P.PN ---
Subjective Date of Service: 04/27/21 Chief Complaint: ADITHYA, UTI, Covid No new changes from yesterday. Patient complaining of generalized body aches. She is maintained on 15L by nasal cannula. Physical Examination - Vital Signs Temperature: 96.9 F Blood Pressure: 142/66 Pulse: 92 Respirations: 20 Pulse Ox (%): 89 - Physical Exam General: Alert, In no apparent distress, Oriented x3 Neck: JVD not distended Respiratory: Other (Nonlabored breathing) Cardiovascular: Regular rate/rhythm, Normal S1 S2 Gastrointestinal: Soft and benign, Non-distended, No tenderness Musculoskeletal: No swelling Integumentary: No rashes Neurological: Normal strength at 5/5 x4 extr Assessment And Plan Physician Review Additional Text: Problem list ADITHYA secondary to dehydration Acute hypoxemic respiratory failure secondary to COVID-19 pneumonia Diabetes mellitus type 2 with hyperglycemia UTI, acute cystitis Hypertension Recurrent falls, weakness Patient now on 15 L oxygen by nasal cannula Continue treatment per protocol, IV steroids, vitamin supplementation, oxygen supplementation Patient did receive Regeneron in ED, and 1 dose of moderna vaccine 1 week ago Pulmonology is following Inflammatory markers slightly improved Also with UTI, secondary to Klebsiella. Continue on Augmentin on 04/23 CXR (04/23): Worsening Covid pneumonia Titrate oxygen as needed Renal function improved Hyperglycemia worsened by steroid use. Manage blood sugar with insulin sliding scale and Lantus. Titrate Lantus for better control VTE: Heparin Code: Full
--- NOTE | 2021-04-27 14:34 | RAD REPORT ---
EXAM DESCRIPTION: RAD - Chest Single View - 04/27/2021 2:09 pm CLINICAL HISTORY: covid COMPARISON: Chest Single View dated 04/25/2021; Chest Single View dated 04/23/2021; Chest Single View dated 04/20/2021; Chest Single View dated 03/01/2019 FINDINGS: Patchy bilateral airspace disease which is grossly similar though the lung volumes have im proved. Cardiomegaly, similar.No acute osseous abnormality. No significant pleural effusions or pneum othorax. IMPRESSION: Improved lung volumes but otherwise similar appearance of the patchy airspace disease bi laterally.
[2021-04-27] MEDS ORDERED: FUROSEMIDE 20 MG/ 2ML VIAL IV ONE (15:00)
[2021-04-27] MEDS: lisinopriL 20 MG TAB PO SCH (15:16)
[2021-04-27] MEDS: METOPROLOL TAR 50 MG TAB PO SCH (15:17)
--- NOTE | 2021-04-27 17:36 | PN ---
Date of Progress Note: 04/26/2021 Chief Complaint: Acute kidney injury, urinary tract infection, COVID pneumonia. Subjective: The patient is on O2 high-flow oxygen delivered. Chest x-ray did not show significant changes. Physical Examination: Lungs: Normal respiratory effort. Heart: S1, S2. Abdomen: Soft. Extremities: No edema. Impression And Plan: 1. Acute kidney injury. IV fluids on hold. Continue to monitor fluid balance. Avoid nephrotoxic medications. The patient will have blood work to evaluate kidney function. 2. Urinary tract infection, on Augmentin for Klebsiella urinary tract infection. 3. COVID-19 pneumonia, on high oxygen and continue steroids. Prognosis is guarded. 4. Monitor renal panel and PO4 level and adjust diet according to electrolytes results. 5. Avoid NSAID, monitor fluid balance, patient may need diuretic for volume control. EB/MODL Voice ID: [id number] Report ID: [id number] [facility]
--- NOTE | 2021-04-27 17:43 | PN ---
Date of Progress Note: 04/27/2021 Subjective: The patient was admitted with hyponatremia, acute kidney injury secondary to prerenal, NO inhibitor, and glucose diuresis. The patient's after hydration kidney function has been normalized. Sodium back to acceptable range. The patient feeling better. Still has some shortness of breath. Physical Examination: Vital Signs: When I saw the patient; blood pressure 142/66, pulse of 92, afebrile. The patient had good urine output. Chest: Crackles bilateral. Heart: S1, S2. Systolic murmur. Abdomen: Soft, nontender. Extremity: Trace edema. Neuro: Alert. No focality. Laboratory Data: WBC 12.6, H and H 12.4/37.5. Sodium 139, potassium 3.7, bicarb 28, BUN 34, creatinine 1, GFR of 54, calcium 8.3, phosphorus 2.3. Chest x-ray; marginal congestion with interstitial infiltration. Current Medications: The patient on include aspirin, Augmentin, atorvastatin, lisinopril 40, amitriptyline, gabapentin. Assessment And Plan: 1. Acute kidney injury secondary to prerenal, recovered, resolved, looked to me slightly on the wet side. I am going to give a single dose of Lasix 20 and we will continue to monitor. 2. Hyponatremia secondary to depletional, recovered, resolved. 3. Hypophosphatemia, hypokalemia, resolved. Time spent examining the patient [id number] placing order discussing with the patient reviewing data discussing the case with all of our subspecialty including hospitalist 45 minutes GABBIE Voice ID: [id number] Report ID: [id number] NATHANAEL
[2021-04-27] MEDS: MELATONIN 5 MG TABLET PO PRN (20:49)
[2021-04-27] MEDS: ATORVASTATIN 80 MG TAB PO SCH (20:49)
[2021-04-27] MEDS: GABAPENTIN 100 MG CAP PO SCH (20:50)
[2021-04-27] MEDS: AMITRIPTYLINE 50 MG TAB PO SCH (20:50)
[2021-04-28] MEDS: IPRATROPIUM BROM 0.5MG/2.5ML NEB SCH ×4 (01:20→20:00)
[2021-04-28 04:50] LABS: HBsAG Nonreactive (Nonreactive)
[2021-04-28 06:44] LABS: Absolute Lymphocytes (CBC) 0.6 K/uL (0.7-4.9); Basophils % 0.6 % (0-1.3); Lymphocytes % 3.8 % (15.3-44.8); RBC Red Blood Cell Count 4.53 M/uL (3.86-4.86)
[2021-04-28 07:04] LABS: Potassium 3.9 mmol/L (3.5-5.1)
[2021-04-28] MEDS: INSULIN -REGULAR HUMAN 50 UNIT/0.5 ML ML SQ SCH ×4 (07:30→21:00)
[2021-04-28] MEDS: lisinopriL 20 MG TAB PO SCH (08:36)
[2021-04-28] MEDS: PIOGLITAZONE 15 MG TAB PO SCH (08:36)
[2021-04-28] MEDS: ZINC SULFATE 220 MG CAP PO SCH (08:36)
[2021-04-28] MEDS: ASCORBIC ACID 500 MG TABLET PO SCH ×4 (08:37→20:16)
[2021-04-28] MEDS: AMOX/K CLAV 500 MG TAB PO SCH ×2 (08:37→20:15)
[2021-04-28] MEDS: VITAMIN D 1000 UNIT TAB PO SCH (08:37)
[2021-04-28] MEDS: THIAMINE HCL 100 MG TABLET PO SCH (08:37)
[2021-04-28] MEDS: INSULIN GLARGINE 100 UNITS/ML SQ SCH ×2 (08:38→17:05)
[2021-04-28] MEDS: METHYLPREDNISOLONE 125 MG INJ IV SCH ×2 (08:39→21:51)
[2021-04-28] MEDS: HEPARIN 5000 UNIT/ML 1 ML VIAL SQ SCH ×2 (08:39→20:15)
[2021-04-28] MEDS: ASPIRIN EC 81 MG TAB PO SCH (08:39)
[2021-04-28] MEDS: METOPROLOL TAR 50 MG TAB PO SCH (08:39)
[2021-04-28 10:23] LABS: Blood Morphology Comment NOT SEEN (NOT SEEN); Platelet Estimate ADEQ
[2021-04-28] MEDS ORDERED: FUROSEMIDE 20 MG/ 2ML VIAL IV ONE (12:11)
--- NOTE | 2021-04-28 15:18 | P.PN ---
Subjective Date of Service: 04/28/21 Chief Complaint: ADITHYA, UTI, Covid No new complain. She is maintained on 15L by nasal cannula. Physical Examination - Vital Signs Temperature: 97.1 F Blood Pressure: 115/70 Pulse: 60 Respirations: 22 Pulse Ox (%): 93 - Physical Exam General: Alert, In no apparent distress Neck: JVD not distended Respiratory: Other (Nonlabored breathing) Cardiovascular: Regular rate/rhythm, Normal S1 S2 Gastrointestinal: Soft and benign, Non-distended Musculoskeletal: No swelling Integumentary: No rashes Neurological: Normal strength at 5/5 x4 extr Assessment And Plan Physician Review Additional Text: Problem list ADITHYA secondary to dehydration Acute hypoxemic respiratory failure secondary to COVID-19 pneumonia Diabetes mellitus type 2 with hyperglycemia UTI, acute cystitis Hypertension Recurrent falls, weakness Patient on 15 L oxygen by nasal cannula Continue treatment per protocol, IV steroids, vitamin supplementation, oxygen supplementation Status post Regeneron in ED, and 1 dose of moderna vaccine 1 week ago Pulmonology is following Continue on Augmentin for Klebsiella UTI. Titrate oxygen as needed Renal function improved Hyperglycemia worsened by steroid use. Manage blood sugar with insulin sliding scale and Lantus. Titrate Lantus for better control VTE: Heparin Code: Full
--- NOTE | 2021-04-28 15:44 | PN ---
Date of Progress Note: 04/28/2021 Subjective: The patient was admitted with acute kidney injury secondary to prerenal, NO inhibitor; after hydration, recovered, resolved. Physical Examination: Vital Signs: Blood pressure 113/77, pulse of 67, afebrile. The patient still has shortness of breath. Chest: Clear to auscultation. Heart: S1, S2. Regular. Abdomen: Soft, nontender. Extremity: Trace edema. Neurologic: Alert. No focality. Laboratory Data: WBC 16.1, H and H 12/36. Sodium 139, potassium 3.9, bicarb 31, BUN 36, creatinine 0.9, calcium 8.6. Current Medications: The patient on include; 1. Aspirin. 2. Augmentin. 3. Heparin. 4. Atorvastatin. 5. Lisinopril. 6. Metoprolol. 7. Amitriptyline. 8. Gabapentin. 9. Zinc sulfate. Assessment And Plan: 1. Acute kidney injury secondary to prerenal and NO inhibitor, recovered, resolved. 2. Hyponatremia secondary to depletional, status post hydration, resolved. 3. COVID pneumonia. Continue current treatment. The patient had more localization on the right upper zone. The patient received a dose of Lasix yesterday. I am going to go ahead and give another dose today and we will follow up. The patient will follow up with Pulmonary. Time spent examining the patient [id number] placing order discussing with the patient reviewing data discussing the case with all of our subspecialty including hospitalist 45 minutes GABBIE Voice ID: [id number] Report ID: [id number] MTDCher
[2021-04-28] MEDS: ATORVASTATIN 80 MG TAB PO SCH (20:15)
[2021-04-28] MEDS: GABAPENTIN 100 MG CAP PO SCH (20:15)
[2021-04-28] MEDS: AMITRIPTYLINE 50 MG TAB PO SCH (20:15)
[2021-04-28] MEDS: MELATONIN 5 MG TABLET PO PRN (20:22)
[2021-04-29] MEDS: PIOGLITAZONE 15 MG TAB PO SCH ×2 (01:45→08:53)
[2021-04-29] MEDS: IPRATROPIUM BROM 0.5MG/2.5ML NEB SCH ×4 (02:00→20:25)
--- NOTE | 2021-04-29 06:28 | P.PN ---
Subjective Date of Service: 04/29/21 Chief Complaint: ADITHYA, UTI, Covid Subjective: No new changes Physical Examination - Vital Signs Temperature: 98.2 F Blood Pressure: 105/59 Pulse: 69 Respirations: 21 Pulse Ox (%): 90 - Physical Exam General: Other (appears as her stated age) HEENT: Atraumatic, Normocephalic Neck: Supple Respiratory: Normal air movement Cardiovascular: No rubs, No murmurs Gastrointestinal: Soft and benign Musculoskeletal: No clubbing Urinary: Other (no bladder distention) Assessment And Plan - Plan 1. Acute kidney injury secondary to prerenal, dehydration secondary to poor intake superimposed with glucose diuresis, superimposed with NO inhibitor use. Small size kidney, proteinuric, nonnephrotic. Improved. [place] by mouth fluid intake. 2. Klebsiella UTI. on abx. 3. Hyponatremia. Resolved. Monitor. 4. COVID PNA. On O2 supplementation. Mngt per primary team. 5. Hypokalemia. Improved. Monitor/replete prn.
[2021-04-29 07:25] LABS: Absolute Lymphocytes (CBC) 0.5 K/uL (0.7-4.9); Basophils % 0.4 % (0-1.3); Hematocrit 34.7 % (36.0-45.0); Lymphocytes % 3.3 % (15.3-44.8); MPV 7.9 fL (7.6-11.3); RBC Red Blood Cell Count 4.36 M/uL (3.86-4.86)
[2021-04-29] MEDS: INSULIN -REGULAR HUMAN 50 UNIT/0.5 ML ML SQ SCH ×4 (07:30→20:24)
[2021-04-29 07:39] LABS: Potassium 3.9 mmol/L (3.5-5.1)
[2021-04-29] MEDS: VITAMIN D 1000 UNIT TAB PO SCH (08:52)
[2021-04-29] MEDS: lisinopriL 20 MG TAB PO SCH ×2 (08:52→13:45)
[2021-04-29] MEDS: ASCORBIC ACID 500 MG TABLET PO SCH ×4 (08:53→20:23)
[2021-04-29] MEDS: AMOX/K CLAV 500 MG TAB PO SCH ×2 (08:53→20:28)
[2021-04-29] MEDS: METOPROLOL TAR 50 MG TAB PO SCH ×2 (08:54→13:45)
[2021-04-29] MEDS: THIAMINE HCL 100 MG TABLET PO SCH (08:54)
[2021-04-29] MEDS: ZINC SULFATE 220 MG CAP PO SCH (08:55)
[2021-04-29] MEDS: HEPARIN 5000 UNIT/ML 1 ML VIAL SQ SCH ×2 (08:55→20:23)
[2021-04-29] MEDS: METHYLPREDNISOLONE 125 MG INJ IV SCH ×2 (08:55→20:23)
[2021-04-29] MEDS: INSULIN GLARGINE 100 UNITS/ML SQ SCH ×2 (09:02→18:12)
[2021-04-29] MEDS: ASPIRIN EC 81 MG TAB PO SCH (09:07)
--- NOTE | 2021-04-29 19:43 | P.PN ---
Subjective Date of Service: 04/29/21 Chief Complaint: ADITHYA, UTI, Covid No new complain. She is now requiring high-flow oxygen with 100% FiO2. Physical Examination - Vital Signs Temperature: 97.5 F Blood Pressure: 111/69 Pulse: 61 Respirations: 20 Pulse Ox (%): 91 Assessment And Plan Physician Review Additional Text: Physical Exam General: Alert, HEENT: Normal conjunctiva, sclera anicteric Respiratory: Nonlabored breathing on high-flow oxygen Cardiovascular: Regular rate/rhythm, Normal S1 S2 Gastrointestinal: Soft, nondistended, slight tenderness upper abdomen Integumentary: No rashes Problem list ADITHYA secondary to dehydration Acute hypoxemic respiratory failure secondary to COVID-19 pneumonia Diabetes mellitus type 2 with hyperglycemia UTI, acute cystitis Hypertension Recurrent falls, weakness Continue treatment per protocol, IV steroids, vitamin supplementation, oxygen supplementation Status post Regeneron in ED, and 1 dose of moderna vaccine 1 week ago Pulmonology is following Continue on Augmentin for Klebsiella UTI. She will complete antibiotics tomorrow. Titrate oxygen as needed Renal function improved Hyperglycemia worsened by steroid use. Manage blood sugar with insulin sliding scale and Lantus. Titrate Lantus for better control VTE: Heparin Code: Full
[2021-04-29] MEDS: ATORVASTATIN 80 MG TAB PO SCH (20:23)
[2021-04-29] MEDS: GABAPENTIN 100 MG CAP PO SCH (20:23)
[2021-04-29] MEDS: AMITRIPTYLINE 50 MG TAB PO SCH (20:23)
[2021-04-29] MEDS: MELATONIN 5 MG TABLET PO PRN (20:23)
[2021-04-29 22:14] LABS: Vitamin D 1,25-Dihydroxy Total 67 pg/mL (18-72); Vitamin D,1,25-OH2, D2 <8 pg/mL
[2021-04-30] MEDS: IPRATROPIUM BROM 0.5MG/2.5ML NEB SCH ×4 (02:05→19:35)
[2021-04-30 03:47] LABS: Albumin, (SPE) 3.2 g/dL (3.8-4.8); Alpha-1-Globulins 0.5 g/dL (0.2-0.3); Alpha-2-Globulins 1.1 g/dL (0.5-0.9); Gamma Globulins 1.1 g/dL (0.8-1.7); INTERPRETATION REPORT
--- NOTE | 2021-04-30 07:09 | P.PN ---
Subjective Date of Service: 04/30/21 Chief Complaint: ADITHYA, UTI, Covid Subjective: Other (She has been on high flow oxygen supplementation.) Physical Examination - Vital Signs Temperature: 97 F Blood Pressure: 99/58 Pulse: 65 Respirations: 20 Pulse Ox (%): 89 - Physical Exam General: Acute distress HEENT: Normocephalic Neck: Supple Respiratory: Normal air movement Cardiovascular: No rubs, No murmurs Musculoskeletal: No clubbing Urinary: Other (no bladder distention) Assessment And Plan - Plan 1. Acute kidney injury secondary to prerenal, dehydration secondary to poor intake superimposed with glucose diuresis, superimposed with NO inhibitor use. Small size kidney, proteinuric, nonnephrotic. Improved/resolved. [place] by mouth fluid intake. 2. Klebsiella UTI. on abx. 3. Hyponatremia. Resolved. Monitor. 4. COVID PNA. On O2 supplementation. Mngt per primary team. 5. Hypokalemia. Improved. Monitor/replete prn. 6. Dispo. Will sign off. Pls call for any questions. Physician Review Additional Text: Physical Exam General: Alert, HEENT: Normal conjunctiva, sclera anicteric Respiratory: Nonlabored breathing on high-flow oxygen Cardiovascular: Regular rate/rhythm, Normal S1 S2 Gastrointestinal: Soft, nondistended, slight tenderness upper abdomen Integumentary: No rashes Problem list ADITHYA secondary to dehydration Acute hypoxemic respiratory failure secondary to COVID-19 pneumonia Diabetes mellitus type 2 with hyperglycemia UTI, acute cystitis Hypertension Recurrent falls, weakness Continue treatment per protocol, IV steroids, vitamin supplementation, oxygen supplementation Status post Regeneron in ED, and 1 dose of moderna vaccine 1 week ago Pulmonology is following Continue on Augmentin for Klebsiella UTI. She will complete antibiotics beth orrow. Titrate oxygen as needed Renal function improved Hyperglycemia worsened by steroid use. Manage blood sugar with insulin sliding scale and Lantus. Titrate Lantus for better control VTE: Heparin Code: Full
[2021-04-30] MEDS: INSULIN GLARGINE 100 UNITS/ML SQ SCH ×2 (07:30→17:21)
[2021-04-30] MEDS: INSULIN -REGULAR HUMAN 50 UNIT/0.5 ML ML SQ SCH ×5 (07:30→21:04)
[2021-04-30] MEDS: ASPIRIN EC 81 MG TAB PO SCH (10:02)
[2021-04-30] MEDS: AMOX/K CLAV 500 MG TAB PO SCH ×2 (10:02→21:04)
[2021-04-30] MEDS: VITAMIN D 1000 UNIT TAB PO SCH (10:02)
[2021-04-30] MEDS: ZINC SULFATE 220 MG CAP PO SCH (10:03)
[2021-04-30] MEDS: METHYLPREDNISOLONE 125 MG INJ IV SCH ×2 (10:03→21:03)
[2021-04-30] MEDS: HEPARIN 5000 UNIT/ML 1 ML VIAL SQ SCH ×2 (10:03→21:04)
[2021-04-30] MEDS: THIAMINE HCL 100 MG TABLET PO SCH (10:03)
[2021-04-30] MEDS: ASCORBIC ACID 500 MG TABLET PO SCH ×4 (10:03→21:04)
[2021-04-30] MEDS: ACETAMINOPHEN 500 MG TAB PO PRN (10:05)
--- NOTE | 2021-04-30 17:45 | P.PN ---
Subjective Date of Service: 04/30/21 Chief Complaint: ADITHYA, UTI, Covid No new complain. She is maintained on high-flow oxygen with 100% FiO2. Physical Examination - Vital Signs Temperature: 97.2 F Blood Pressure: 104/62 Pulse: 78 Respirations: 23 Pulse Ox (%): 92 - Physical Exam General: In no apparent distress, Oriented x3 Neck: JVD not distended Respiratory: Other (Nonlabored brain) Cardiovascular: Regular rate/rhythm, Normal S1 S2 Gastrointestinal: Soft and benign, Non-distended Musculoskeletal: No swelling Integumentary: No rashes Neurological: Normal strength at 5/5 x4 extr Assessment And Plan Physician Review Additional Text: Physical Exam General: Alert, HEENT: Normal conjunctiva, sclera anicteric Respiratory: Nonlabored breathing on high-flow oxygen Cardiovascular: Regular rate/rhythm, Normal S1 S2 Gastrointestinal: Soft, nondistended. Integumentary: No rashes Problem list ADITHYA secondary to dehydration Acute hypoxemic respiratory failure secondary to COVID-19 pneumonia Diabetes mellitus type 2 with hyperglycemia UTI, acute cystitis Hypertension Recurrent falls, weakness Continue treatment per protocol, IV steroids, vitamin supplementation, oxygen supplementation Status post Regeneron in ED, and 1 dose of moderna vaccine 1 week ago Pulmonology is following Continue on Augmentin for Klebsiella UTI. She will complete antibiotics tonight. Wean oxygen as tolerated ADITHYA resolved Manage blood sugar with insulin sliding scale and Lantus. Titrate Lantus for better control VTE: Heparin Code: Full
[2021-04-30] MEDS: MELATONIN 5 MG TABLET PO PRN (21:04)
[2021-04-30] MEDS: AMITRIPTYLINE 50 MG TAB PO SCH (21:04)
[2021-04-30] MEDS: GABAPENTIN 100 MG CAP PO SCH (21:04)
[2021-04-30] MEDS: ATORVASTATIN 80 MG TAB PO SCH (21:04)
[2021-05-01] MEDS: IPRATROPIUM BROM 0.5MG/2.5ML NEB SCH ×4 (01:40→19:15)
[2021-05-01] MEDS: INSULIN GLARGINE 100 UNITS/ML SQ SCH ×2 (07:30→16:30)
[2021-05-01] MEDS: INSULIN -REGULAR HUMAN 50 UNIT/0.5 ML ML SQ SCH ×4 (07:30→21:00)
[2021-05-01 09:00] LABS: Potassium 3.9 mmol/L (3.5-5.1)
[2021-05-01] MEDS: ASPIRIN EC 81 MG TAB PO SCH (09:00)
[2021-05-01] MEDS: HEPARIN 5000 UNIT/ML 1 ML VIAL SQ SCH ×2 (09:00→21:09)
[2021-05-01 09:53] LABS: Absolute Lymphocytes (CBC) 0.9 K/uL (0.7-4.9); Basophils % 0.1 % (0-1.3); Hematocrit 39.5 % (36.0-45.0); Lymphocytes % 3.8 % (15.3-44.8); MPV 8.2 fL (7.6-11.3)
[2021-05-01] MEDS: PIOGLITAZONE 15 MG TAB PO SCH (10:51)
[2021-05-01] MEDS: VITAMIN D 1000 UNIT TAB PO SCH (10:51)
[2021-05-01] MEDS: METOPROLOL TAR 50 MG TAB PO SCH (10:51)
[2021-05-01] MEDS: lisinopriL 20 MG TAB PO SCH (10:52)
[2021-05-01] MEDS: ZINC SULFATE 220 MG CAP PO SCH (10:52)
[2021-05-01] MEDS: AMOX/K CLAV 500 MG TAB PO SCH ×2 (10:52→21:09)
[2021-05-01] MEDS: ASCORBIC ACID 500 MG TABLET PO SCH ×4 (11:01→21:09)
[2021-05-01] MEDS: METHYLPREDNISOLONE 125 MG INJ IV SCH ×2 (11:01→21:10)
[2021-05-01] MEDS: THIAMINE HCL 100 MG TABLET PO SCH (11:02)
[2021-05-01 12:05] LABS: Blood Morphology Comment NOT SEEN (NOT SEEN); Platelet Estimate ADEQ
--- NOTE | 2021-05-01 15:36 | P.PN ---
Subjective Date of Service: 05/01/21 Chief Complaint: ADITHYA, UTI, Covid No new complain. She is stable on high-flow oxygen with 100% FiO2. Leukocytosis getting worse, patient also tachycardic and flagging for sepsis. Physical Examination - Vital Signs Temperature: 97.0 F Blood Pressure: 114/53 Pulse: 107 Respirations: 23 Pulse Ox (%): 86 - Physical Exam General: Alert, In no apparent distress Neck: JVD not distended Respiratory: Other (Nonlabored breathing.) Cardiovascular: Normal S1 S2 (Tachycardia) Gastrointestinal: Soft and benign, Non-distended Musculoskeletal: No swelling Integumentary: No rashes Neurological: Normal strength at 5/5 x4 extr Assessment And Plan Physician Review Additional Text: Physical Exam General: Alert, HEENT: Normal conjunctiva, sclera anicteric Respiratory: Nonlabored breathing on high-flow oxygen Cardiovascular: Tachycardia, Normal S1 S2 Gastrointestinal: Soft, nondistended. Integumentary: No rashes Problem list ADITHYA secondary to dehydration Acute hypoxemic respiratory failure secondary to COVID-19 pneumonia Diabetes mellitus type 2 with hyperglycemia UTI, acute cystitis Hypertension Recurrent falls, weakness Continue treatment per protocol, IV steroids, vitamin supplementation, oxygen supplementation Status post Regeneron in ED, and 1 dose of moderna vaccine 1 week ago Pulmonology is following. Patient planning for sepsis. Obtain blood culture and repeat urine culture. Restart antibiotics-IV cefepime and vancomycin. Wean oxygen as tolerated ADITHYA resolved Manage blood sugar with insulin sliding scale and Lantus. Titrate Lantus. VTE: Heparin Code: Full
[2021-05-01] MEDS ORDERED: VANCOMYCIN 1.25 GM in NA CHLORIDE 0.9% 250 ML IVPB SCH (16:00)
[2021-05-01] MEDS: VANCOMYCIN/NS 1 gm 1 GM/250 ML BAG IVPB ONE ×2 (17:15→21:13)
[2021-05-01] MEDS ORDERED: VANCOMYCIN/NS 1 gm 1 GM/250 ML BAG IVPB ONE (17:15)
[2021-05-01] MEDS ORDERED: VANCOMYCIN 1 GM/VIAL ONE (20:19)
[2021-05-01] MEDS ORDERED: NA CHLORIDE 0.9% 250 ML ONE (20:19)
[2021-05-01] MEDS ORDERED: CEFEPIME 1 GM/VIAL IV SCH (21:00)
[2021-05-01] MEDS: CEFEPIME/SWI 1gm 10 ML IV SCH ×2 (21:00→21:12)
[2021-05-01] MEDS: AMITRIPTYLINE 50 MG TAB PO SCH (21:09)
[2021-05-01] MEDS: ATORVASTATIN 80 MG TAB PO SCH (21:09)
[2021-05-01] MEDS: MELATONIN 5 MG TABLET PO PRN (21:10)
[2021-05-01] MEDS: GABAPENTIN 100 MG CAP PO SCH (21:10)
[2021-05-01] MEDS: LOPERAMIDE HCL 2 MG CAPSULE PO PRN (21:45)
[2021-05-02] MEDS: IPRATROPIUM BROM 0.5MG/2.5ML NEB SCH ×2 (01:05→08:00)
[2021-05-02 06:20] LABS: Absolute Lymphocytes (CBC) 0.4 K/uL (0.7-4.9); Basophils % 0.1 % (0-1.3); Hematocrit 36.5 % (36.0-45.0); Lymphocytes % 2.6 % (15.3-44.8); MPV 8.4 fL (7.6-11.3); RBC Red Blood Cell Count 4.52 M/uL (3.86-4.86)
[2021-05-02 06:39] LABS: Potassium 4.1 mmol/L (3.5-5.1)
[2021-05-02] MEDS: INSULIN -REGULAR HUMAN 50 UNIT/0.5 ML ML SQ SCH ×4 (07:30→21:43)
[2021-05-02] MEDS: INSULIN GLARGINE 100 UNITS/ML SQ SCH ×2 (07:30→17:45)
[2021-05-02] MEDS: PIOGLITAZONE 15 MG TAB PO SCH (08:00)
[2021-05-02] MEDS: ASPIRIN EC 81 MG TAB PO SCH (09:00)
[2021-05-02] MEDS: AMOX/K CLAV 500 MG TAB PO SCH ×2 (09:00→20:16)
[2021-05-02] MEDS ORDERED: VANCOMYCIN 2 GM in NA CHLORIDE 0.9% 500 ML IVPB SCH ×2 (09:00→13:00)
[2021-05-02] MEDS: CEFEPIME/SWI 1gm 10 ML IV SCH (09:22)
[2021-05-02] MEDS: THIAMINE HCL 100 MG TABLET PO SCH (09:23)
[2021-05-02] MEDS: METOPROLOL TAR 50 MG TAB PO SCH (09:23)
[2021-05-02] MEDS: VITAMIN D 1000 UNIT TAB PO SCH (09:23)
[2021-05-02] MEDS: METHYLPREDNISOLONE 125 MG INJ IV SCH ×2 (09:23→20:14)
[2021-05-02] MEDS: lisinopriL 20 MG TAB PO SCH (09:23)
[2021-05-02] MEDS: HEPARIN 5000 UNIT/ML 1 ML VIAL SQ SCH (09:24)
[2021-05-02] MEDS: ASCORBIC ACID 500 MG TABLET PO SCH ×4 (09:24→20:14)
[2021-05-02] MEDS: ZINC SULFATE 220 MG CAP PO SCH (09:24)
[2021-05-02] MEDS ORDERED: VANCOMYCIN/NS 1 gm 1 GM/250 ML BAG IVPB ONE (12:00)
--- NOTE | 2021-05-02 14:09 | P.PN ---
Subjective Date of Service: 05/02/21 Chief Complaint: ADITHYA, UTI, Covid No new complain. She is on 100% non-rebreather. Leukocytosis improved. Patient is refusing vancomycin. Physical Examination - Vital Signs Temperature: 97.0 F Blood Pressure: 115/59 Pulse: 86 Respirations: 24 Pulse Ox (%): 84 - Physical Exam General: In no apparent distress Neck: JVD not distended Respiratory: Other (Nonlabored breathing) Cardiovascular: Regular rate/rhythm, Normal S1 S2 Gastrointestinal: Soft and benign, Non-distended Musculoskeletal: No swelling Integumentary: No rashes Neurological: Normal strength at 5/5 x4 extr Assessment And Plan Physician Review Additional Text: Physical Exam General: Alert, HEENT: Normal conjunctiva, sclera anicteric Respiratory: Nonlabored breathing on high-flow oxygen Cardiovascular: Tachycardia, Normal S1 S2 Gastrointestinal: Soft, nondistended. Integumentary: No rashes Problem list ADITHYA secondary to dehydration Acute hypoxemic respiratory failure secondary to COVID-19 pneumonia Diabetes mellitus type 2 with hyperglycemia UTI, acute cystitis Hypertension Recurrent falls, weakness Continue treatment per protocol, IV steroids, vitamin supplementation, oxygen supplementation Status post Regeneron in ED, and 1 dose of moderna vaccine 1 week ago Pulmonology is following. Leukocytosis improving. Repeat blood culture is pending. Repeat urine culture. Continue IV Cefepime. Patient is refusing vancomycin. Wean oxygen as tolerated ADITHYA resolved Blood sugar readings improved. Continue insulin sliding scale and Lantus. VTE: Heparin Code: Full
[2021-05-02] MEDS: MELATONIN 5 MG TABLET PO PRN (20:14)
[2021-05-02] MEDS: ATORVASTATIN 80 MG TAB PO SCH (20:14)
[2021-05-02] MEDS: GABAPENTIN 100 MG CAP PO SCH (20:14)
[2021-05-02] MEDS: AMITRIPTYLINE 50 MG TAB PO SCH (20:14)
[2021-05-03] MEDS: LOPERAMIDE HCL 2 MG CAPSULE PO PRN (06:04)
[2021-05-03 06:11] LABS: Absolute Lymphocytes (CBC) 0.3 K/uL (0.7-4.9); Basophils % 0.1 % (0-1.3); Hematocrit 39.6 % (36.0-45.0); Lymphocytes % 1.5 % (15.3-44.8); MPV 8.5 fL (7.6-11.3); RBC Red Blood Cell Count 4.88 M/uL (3.86-4.86)
[2021-05-03 06:26] LABS: Potassium 4.3 mmol/L (3.5-5.1)
[2021-05-03] MEDS: INSULIN GLARGINE 100 UNITS/ML SQ SCH ×2 (07:30→16:30)
[2021-05-03] MEDS: METHYLPREDNISOLONE 125 MG INJ IV SCH ×2 (09:00→19:40)
[2021-05-03] MEDS: INSULIN -REGULAR HUMAN 50 UNIT/0.5 ML ML SQ SCH ×4 (09:00→20:20)
[2021-05-03] MEDS: METOPROLOL TAR 50 MG TAB PO SCH (09:00)
[2021-05-03] MEDS: AMOX/K CLAV 500 MG TAB PO SCH (09:01)
[2021-05-03] MEDS: PIOGLITAZONE 15 MG TAB PO SCH (09:01)
[2021-05-03] MEDS: lisinopriL 20 MG TAB PO SCH (09:01)
[2021-05-03] MEDS: VITAMIN D 1000 UNIT TAB PO SCH (09:01)
[2021-05-03] MEDS: ASCORBIC ACID 500 MG TABLET PO SCH ×4 (09:02→19:40)
[2021-05-03] MEDS: ASPIRIN EC 81 MG TAB PO SCH (09:02)
[2021-05-03] MEDS: ZINC SULFATE 220 MG CAP PO SCH (09:03)
--- NOTE | 2021-05-03 16:26 | P.PN ---
Subjective Date of Service: 05/03/21 Chief Complaint: ADITHYA, UTI, Covid No new complain. She is on 100% non-rebreather with borderline SaO2. She looks comfortable. Physical Examination - Vital Signs Temperature: 97.1 F Blood Pressure: 112/83 Pulse: 95 Respirations: 25 Pulse Ox (%): 88 - Physical Exam General: In no apparent distress, Oriented x3 Neck: JVD not distended Respiratory: Other (Nonlabored breathing) Cardiovascular: Regular rate/rhythm, Normal S1 S2 Gastrointestinal: Soft and benign, Non-distended Musculoskeletal: No swelling Integumentary: No rashes Neurological: Normal strength at 5/5 x4 extr Assessment And Plan Physician Review Additional Text: Physical Exam General: Alert, HEENT: Normal conjunctiva, sclera anicteric Respiratory: Nonlabored breathing on high-flow oxygen Cardiovascular: Tachycardia, Normal S1 S2 Gastrointestinal: Soft, nondistended. Integumentary: No rashes Problem list ADITHYA secondary to dehydration Acute hypoxemic respiratory failure secondary to COVID-19 pneumonia Diabetes mellitus type 2 with hyperglycemia UTI, acute cystitis Hypertension Recurrent falls, weakness Continue IV steroids, vitamin supplementation. Status post Regeneron in ED, and 1 dose of moderna vaccine 1 week ago Pulmonology is following. Repeat blood culture: No growth. Discontinue antibiotics Wean oxygen as tolerated ADITHYA resolved Blood sugar readings improved. Continue insulin sliding scale and Lantus. VTE: Heparin Code: Full
[2021-05-03] MEDS: ATORVASTATIN 80 MG TAB PO SCH (19:40)
[2021-05-03] MEDS: APIXABAN 5 MG TABLET PO SCH (19:40)
[2021-05-03] MEDS: MELATONIN 5 MG TABLET PO PRN (19:40)
[2021-05-03] MEDS: GABAPENTIN 100 MG CAP PO SCH (19:40)
[2021-05-03] MEDS: AMITRIPTYLINE 50 MG TAB PO SCH (19:40)
[2021-05-03 19:51] LABS: Blood Morphology Comment NOT SEEN (NOT SEEN); Platelet Estimate ADEQ; White Blood Cell Scan OK (OK)
[2021-05-03 19:52] LABS: Poikilocytosis 1+
[2021-05-04 05:48] LABS: Absolute Lymphocytes (CBC) 0.2 K/uL (0.7-4.9); Basophils % 0.4 % (0-1.3); Hematocrit 35.9 % (36.0-45.0); Lymphocytes % 1.4 % (15.3-44.8); MPV 8.4 fL (7.6-11.3); RBC Red Blood Cell Count 4.42 M/uL (3.86-4.86)
[2021-05-04 06:03] LABS: C-Reactive Protein 43.5 mg/L (<3.00); Magnesium 2.6 mg/dL (1.8-2.4); Potassium 4.8 mmol/L (3.5-5.1)
--- NOTE | 2021-05-04 07:41 | RAD REPORT ---
EXAM DESCRIPTION: [facility] Single View05/04/2021 7:11 am CLINICAL HISTORY: Hypoxia COMPARISON: April 27 FINDINGS: Worsening in extensive bilateral pulmonary opacities. The heart is normal size IMPRESSION: Worsening in the extensive bilateral pneumonia
[2021-05-04] MEDS: METOPROLOL TAR 50 MG TAB PO SCH (09:51)
[2021-05-04] MEDS: ASPIRIN EC 81 MG TAB PO SCH (09:51)
[2021-05-04] MEDS: ASCORBIC ACID 500 MG TABLET PO SCH ×4 (09:51→19:23)
[2021-05-04] MEDS: THIAMINE HCL 100 MG TABLET PO SCH (09:52)
[2021-05-04] MEDS: lisinopriL 20 MG TAB PO SCH (09:52)
[2021-05-04] MEDS: ZINC SULFATE 220 MG CAP PO SCH (09:52)
[2021-05-04] MEDS: VITAMIN D 1000 UNIT TAB PO SCH (09:52)
[2021-05-04] MEDS: METHYLPREDNISOLONE 125 MG INJ IV SCH ×2 (09:53→19:23)
[2021-05-04] MEDS: INSULIN GLARGINE 100 UNITS/ML SQ SCH ×2 (09:53→17:06)
[2021-05-04] MEDS: INSULIN -REGULAR HUMAN 50 UNIT/0.5 ML ML SQ SCH ×4 (09:54→20:54)
[2021-05-04] MEDS: PIOGLITAZONE 15 MG TAB PO SCH (10:17)
[2021-05-04] MEDS: APIXABAN 5 MG TABLET PO SCH ×2 (12:43→19:24)
--- NOTE | 2021-05-04 16:29 | P.PN ---
Subjective Date of Service: 05/04/21 Chief Complaint: ADITHYA, UTI, Covid Subjective: No new changes (requires high levels of O2, no significant foreign exchange services manager days, SpO2 remains in mid80s to 90.) Review of Systems 10-point ROS is otherwise unremarkable Physical Examination - Vital Signs Temperature: 96.9 F Blood Pressure: 114/60 Pulse: 53 Respirations: 26 Pulse Ox (%): 81 Assessment & Plan Physician Review Additional Text: Physical Exam General: Alert, NAD HEENT: Normal conjunctiva, sclera anicteric Respiratory: Nonlabored breathing on high-flow oxygen Cardiovascular: Tachycardia, Normal S1 S2 Gastrointestinal: Soft, nondistended. Integumentary: No rashes Problem list ADITHYA secondary to dehydration Acute hypoxemic respiratory failure secondary to COVID-19 pneumonia Diabetes mellitus type 2 with hyperglycemia UTI, acute cystitis Hypertension Recurrent falls, weakness Continue IV steroids, vitamin supplementation. Status post Regeneron in ED, and 1 dose of moderna vaccine 1 week ago Pulmonology is following. Repeat blood culture: No growth. Discontinue antibiotics Wean oxygen as tolerated ADITHYA resolved Continue insulin sliding scale and Lantus. VTE: Heparin Code: Full spoke with patient at length today, wants to continue with full code, ok with intubation as last resort guarded prognosis daughter updated 05/04 Time Spent Managing Pts Care (In Minutes): 40
[2021-05-04] MEDS: FENOFIBRATE 160 MG TAB PO SCH (17:06)
[2021-05-04] MEDS: GABAPENTIN 100 MG CAP PO SCH (19:23)
[2021-05-04] MEDS: AMITRIPTYLINE 50 MG TAB PO SCH (19:23)
[2021-05-04] MEDS: MELATONIN 5 MG TABLET PO PRN (19:23)
[2021-05-05 03:42] LABS: Absolute Lymphocytes (CBC) 0.4 K/uL (0.7-4.9); Basophils % 0.1 % (0-1.3); Hematocrit 36.6 % (36.0-45.0); Lymphocytes % 1.4 % (15.3-44.8); MPV 8.4 fL (7.6-11.3); RBC Red Blood Cell Count 4.49 M/uL (3.86-4.86)
[2021-05-05 03:59] LABS: Albumin 2.3 g/dL (3.4-5.0); Bilirubin Total 0.6 mg/dL (0.2-1.0); C-Reactive Protein 58.5 mg/L (<3.00); Ferritin 373.5 ng/mL (8-388); Protein, Total 6.3 g/dL (6.4-8.2)
[2021-05-05 04:59] LABS: Blood Morphology Comment NOT SEEN (NOT SEEN); Platelet Estimate ADEQ
[2021-05-05 05:40] LABS: Arterial Blood Carboxyhemoglob 0.9 % (0-1.5); Blood Gas Oxyhemoglobin 84.3 % (94-97); Blood O2 Saturation 85.8 % (92-98.5)
[2021-05-05] MEDS: LOPERAMIDE HCL 2 MG CAPSULE PO PRN (05:56)
--- NOTE | 2021-05-05 06:33 | P.PN ---
Subjective Date of Service: 05/05/21 Chief Complaint: ADITHYA, UTI, Covid Subjective: Worsening (Very dependent on BiPAP today, desaturates with minimal movement, recommend Hughes placement, patient states she will think about it today. No new complaints, denies dysuria, no abdominal pains) Review of Systems 10-point ROS is otherwise unremarkable Physical Examination - Vital Signs Temperature: 97.0 F Blood Pressure: 131/61 Pulse: 79 Respirations: 20 Pulse Ox (%): 89 Assessment & Plan Physician Review Additional Text: Physical Exam General: Alert, NAD HEENT: Normal conjunctiva, sclera anicteric Respiratory: Mildly labored respirations on BiPAP, FiO2 100% Cardiovascular: Tachycardia, no edema Gastrointestinal: Soft, nondistended. Integumentary: No rashes Problem list ADITHYA secondary to dehydration Acute hypoxemic respiratory failure secondary to COVID-19 pneumonia Diabetes mellitus type 2 with hyperglycemia UTI, acute cystitis Hypertension Recurrent falls, weakness Continue IV steroids, vitamin supplementation. Status post Regeneron in ED, and 1 dose of moderna vaccine 1 week ago Pulmonology is following. Repeat blood culture: No growth. Discontinued antibiotics Wean oxygen as tolerated ADITHYA resolved Continue insulin sliding scale and Lantus. transfer to ICU for closer monitoring hughes cath today - pt to "think about it" will likely need dobhoff tomorrow if no improvement VTE: Heparin Code: Full spoke with patient at length 05/04, wants to continue with full code, ok with intubation as last resort guarded prognosis. daughter updated 05/04 Time Spent Managing Pts Care (In Minutes): 35
[2021-05-05] MEDS: INSULIN -REGULAR HUMAN 50 UNIT/0.5 ML ML SQ SCH ×4 (07:30→21:00)
[2021-05-05] MEDS: PIOGLITAZONE 15 MG TAB PO SCH (08:00)
[2021-05-05] MEDS: ZINC SULFATE 220 MG CAP PO SCH (09:00)
[2021-05-05] MEDS: ASCORBIC ACID 500 MG TABLET PO SCH ×4 (09:00→21:00)
[2021-05-05] MEDS: APIXABAN 5 MG TABLET PO SCH ×2 (09:00→21:00)
[2021-05-05] MEDS: METOPROLOL TAR 50 MG TAB PO SCH (09:00)
[2021-05-05] MEDS: lisinopriL 20 MG TAB PO SCH (09:00)
[2021-05-05] MEDS: ASPIRIN EC 81 MG TAB PO SCH (09:00)
[2021-05-05] MEDS: THIAMINE HCL 100 MG TABLET PO SCH (09:00)
[2021-05-05] MEDS: VITAMIN D 1000 UNIT TAB PO SCH (09:00)
[2021-05-05] MEDS: INSULIN GLARGINE 100 UNITS/ML SQ SCH ×2 (11:07→16:30)
[2021-05-05] MEDS: METHYLPREDNISOLONE 125 MG INJ IV SCH ×2 (11:07→21:29)
[2021-05-05] MEDS: FENOFIBRATE 160 MG TAB PO SCH (16:39)
[2021-05-05] MEDS: GABAPENTIN 100 MG CAP PO SCH (21:00)
[2021-05-05] MEDS: AMITRIPTYLINE 50 MG TAB PO SCH (21:00)
[2021-05-06 04:34] LABS: Absolute Lymphocytes (CBC) 0.2 K/uL (0.7-4.9); Basophils % 0.5 % (0-1.3); Hematocrit 36.4 % (36.0-45.0); Lymphocytes % 1.1 % (15.3-44.8); MPV 8.4 fL (7.6-11.3); RBC Red Blood Cell Count 4.47 M/uL (3.86-4.86)
[2021-05-06 04:59] LABS: Ferritin 454.6 ng/mL (8-388); Potassium 5.1 mmol/L (3.5-5.1)
--- NOTE | 2021-05-06 05:49 | P.PN ---
Subjective Date of Service: 05/06/21 Chief Complaint: ADITHYA, UTI, Covid Subjective: Worsening (very SOB/dyspnea with minimal exertion. Hughes catheter placed yesterday, and transferred to ICU last night for closer monitoring) Review of Systems 10-point ROS is otherwise unremarkable Physical Examination - Vital Signs Temperature: 98.3 F Blood Pressure: 120/64 Pulse: 78 Respirations: 22 Pulse Ox (%): 92 Assessment & Plan Physician Review Additional Text: Physical Exam General: Alert, fatigued HEENT: Normal conjunctiva, sclera anicteric Respiratory: Mild-mod labored respirations on BiPAP, FiO2 100% Cardiovascular: Tachycardia, no edema Gastrointestinal: Soft, nondistended. Integumentary: No rashes Problem list ADITHYA secondary to dehydration, resolved Acute hypoxemic respiratory failure secondary to COVID-19 pneumonia Diabetes mellitus type 2 with hyperglycemia UTI, acute cystitis, treated Hypertension Recurrent falls, weakness Continue IV steroids, vitamin supplementation. Status post Regeneron in ED, and 1 dose of moderna vaccine 1 week ago Pulmonology is following. Repeat blood culture: No growth. Discontinued antibiotics earlier, and restarted today due to worsening CRP, worsening clinical status, repeat UA/urine culture Wean oxygen as tolerated ADITHYA resolved Continue insulin sliding scale and Lantus. transferred to ICU for closer monitoring on 05/05 hughes cath placed 05/05 discussed need for dobhoff, pt agreeable VTE: eliquis Code: Full spoke with patient at length 05/04, wants to continue with full code, ok with intubation as last resort guarded prognosis. daughter updated 05/06 Time Spent Managing Pts Care (In Minutes): 35
[2021-05-06] MEDS ORDERED: Meropenem 500 MG/100 ML BAG IV SCH (06:00)
[2021-05-06] MEDS ORDERED: FLUCONAZOLE 400 MG IVPB 400 MG/200 ML BAG IV SCH (06:00)
[2021-05-06] MEDS: INSULIN GLARGINE 100 UNITS/ML SQ SCH (07:30)
--- NOTE | 2021-05-06 07:52 | P.PN ---
Subjective Date of Service: 05/06/21 Chief Complaint: Respiratory failure Patient got transferred to the patient got transferred to the ICU with worsening respiratory status currently on but currently on BiPAP 100% FiO2 Review of Systems General: Weakness Respiratory: Shortness of Breath Physical Examination - Vital Signs Temperature: 98.3 F Blood Pressure: 127/78 Pulse: 81 Respirations: 27 Pulse Ox (%): 92 - Physical Exam General: Alert, Cooperative Assessment & Plan - Problems (Diagnosis) (1) Pneumonia due to COVID-19 virus Current Visit: Yes Status: Acute Plan: Patient transferred from the floor to the patient transferred to the ICU with worsening respiratory status she is currently 100% FiO2 on BiPAP labs reviewed white count is labs reviewed white count is declining chest x-ray shows chest x- ray shows worsening patient will qualify for Barcitinib/DC meropenem DC meropenem changed to p.o. levofloxacin there is no evidence of bacterial infection apart from elevated white count
[2021-05-06] MEDS: PIOGLITAZONE 15 MG TAB PO SCH (08:00)
[2021-05-06] MEDS: BARICITINIB 2 MG TABLET PO SCH (09:00)
[2021-05-06] MEDS: METHYLPREDNISOLONE 125 MG INJ IV SCH ×2 (09:00→20:05)
[2021-05-06] MEDS: FLUCONAZOLE 400 MG IVPB 400 MG/200 ML BAG IV SCH (09:02)
[2021-05-06] MEDS: INSULIN -REGULAR HUMAN 50 UNIT/0.5 ML ML SQ SCH ×4 (13:06→20:31)
[2021-05-06] MEDS: VITAMIN D 1000 UNIT TAB PO SCH (15:57)
[2021-05-06] MEDS: THIAMINE HCL 100 MG TABLET PO SCH (15:59)
[2021-05-06] MEDS: ZINC SULFATE 220 MG CAP PO SCH (16:00)
[2021-05-06] MEDS: ASPIRIN EC 81 MG TAB PO SCH (16:00)
[2021-05-06] MEDS: APIXABAN 5 MG TABLET PO SCH (16:00)
[2021-05-06] MEDS: lisinopriL 20 MG TAB PO SCH (16:01)
[2021-05-06] MEDS: ASCORBIC ACID 500 MG TABLET PO SCH ×4 (16:01→19:14)
[2021-05-06] MEDS: METOPROLOL TAR 50 MG TAB PO SCH (16:01)
[2021-05-06] MEDS: ENOXAPARIN 40 MG/0.4 ML SQ SCH (17:04)
[2021-05-06] MEDS: FENOFIBRATE 160 MG TAB PO SCH (17:04)
[2021-05-06] MEDS: Meropenem 500 MG/100 ML BAG IV SCH (17:04)
[2021-05-06] MEDS ORDERED: D5 0.45 NS 1,000 ML IV SCH (18:00)
[2021-05-06] MEDS: AMITRIPTYLINE 50 MG TAB PO SCH (19:14)
[2021-05-06] MEDS: GABAPENTIN 100 MG CAP PO SCH (19:14)
[2021-05-07] MEDS: Meropenem 500 MG/100 ML BAG IV SCH ×3 (00:20→18:53)
[2021-05-07 05:33] LABS: Absolute Lymphocytes (CBC) 0.2 K/uL (0.7-4.9); Hematocrit 37.2 % (36.0-45.0); MPV 8.9 fL (7.6-11.3); RBC Red Blood Cell Count 4.55 M/uL (3.86-4.86)
[2021-05-07 05:58] LABS: Potassium 5.1 mmol/L (3.5-5.1)
--- NOTE | 2021-05-07 06:30 | P.PN ---
Subjective Date of Service: 05/07/21 Chief Complaint: ADITHYA, UTI, Covid Subjective: No new changes (remains 100% FiO2 on bipap, SpO2: 88-90% with no movement. no dobhoff's in stock, pt could not tolerate NG tube yesterday. refuses any further attempts. reports dry mouth, wanting BIPAP mask off, however desaturates quickly down to 70) Review of Systems 10-point ROS is otherwise unremarkable Physical Examination - Vital Signs Temperature: 98.8 F Blood Pressure: 117/60 Pulse: 87 Respirations: 24 Pulse Ox (%): 86 Assessment & Plan Physician Review Additional Text: Physical Exam General: Alert Oriented x3, fatigued HEENT: Normal conjunctiva, sclera anicteric Respiratory: Mild labored respirations on BiPAP, FiO2 100% Cardiovascular: regular rate/rhythm, no edema Gastrointestinal: Soft, non-tender, non-distended. Integumentary: No rashes Problem list ADITHYA secondary to dehydration, resolved Acute hypoxemic respiratory failure secondary to COVID-19 pneumonia Diabetes mellitus type 2 with hyperglycemia UTI, acute cystitis, treated Hypertension Recurrent falls, weakness Continue steroids, vitamin supplementation. Status post Regeneron in ED, and 1 dose of moderna vaccine 1 week ago Pulmonology is following. Repeat blood culture: No growth. Discontinued antibiotics earlier, and merrem restarted 05/06 due to worsening CRP, worsening clinical status Wean oxygen as tolerated ADITHYA resolved Continue insulin sliding scale and Lantus. held due to inabiltiy to eat transferred to ICU for closer monitoring on 05/05 hughes cath placed 05/05 discussed need for dobhoff, pt was agreeable but couldn't tolerate it on 05/06, refusing any further attempts will start PPN with plan to transition to TPN once PICC placed PICC ordered on gentle D5 1/2NS for now VTE: osmaniis Code: Full spoke with patient at length 05/04 and again on 05/07, wants to continue with full code, ok with intubation as last resort for now states she will discuss with her daughter further guarded prognosis Time Spent Managing Pts Care (In Minutes): 45
[2021-05-07] MEDS ORDERED: D5 0.45 NS 1,000 ML IV SCH (06:34)
[2021-05-07] MEDS: INSULIN -REGULAR HUMAN 50 UNIT/0.5 ML ML SQ SCH ×4 (07:49→21:25)
[2021-05-07] MEDS: PIOGLITAZONE 15 MG TAB PO SCH (07:50)
[2021-05-07] MEDS: ASPIRIN EC 81 MG TAB PO SCH (07:51)
[2021-05-07] MEDS: METOPROLOL TAR 50 MG TAB PO SCH (07:51)
[2021-05-07] MEDS: BARICITINIB 2 MG TABLET PO SCH (07:52)
[2021-05-07] MEDS: lisinopriL 20 MG TAB PO SCH (07:52)
[2021-05-07] MEDS: METHYLPREDNISOLONE 125 MG INJ IV SCH (08:03)
[2021-05-07] MEDS: FLUCONAZOLE 400 MG IVPB 400 MG/200 ML BAG IV SCH (08:04)
[2021-05-07] MEDS: THIAMINE HCL 100 MG TABLET PO SCH (08:08)
[2021-05-07] MEDS: ASCORBIC ACID 500 MG TABLET PO SCH ×4 (08:09→21:00)
[2021-05-07] MEDS: VITAMIN D 1000 UNIT TAB PO SCH (08:09)
[2021-05-07] MEDS: ZINC SULFATE 220 MG CAP PO SCH (08:10)
--- NOTE | 2021-05-07 09:00 | RAD REPORT ---
EXAM DESCRIPTION: RAD - Chest Single View - 05/07/2021 6:46 am CLINICAL HISTORY: hypoxia, f/u covid Chest pain. COMPARISON: Chest Single View dated 05/04/2021; Chest Single View dated 04/27/2021; Chest Single View dated 04/25/2021; Chest Single View dated 04/23/2021 FINDINGS: Portable technique limits examination quality. Extensive bilateral pulmonary opacities show mild improvement since 05/04/2021. The heart is normal i n size. Tortuous thoracic aorta is seen.
--- NOTE | 2021-05-07 09:54 | P.PN ---
Subjective Date of Service: 05/07/21 Chief Complaint: Resp failure Unable to insert a Ankur/ very hypoxic Review of Systems is unable to be obtained Physical Examination - Vital Signs Temperature: 96.6 F Blood Pressure: 126/73 Pulse: 91 Respirations: 27 Pulse Ox (%): 87 - Physical Exam General: Alert, Cooperative, Mild distress Assessment & Plan - Problems (Diagnosis) (1) Pneumonia due to COVID-19 virus Current Visit: Yes Status: Acute Plan: Resp failure agree with PPn/ WBC declining, Randy fungalsuperinfection, UA pos for fungus/ Reduce dose of steroids/Dc lisinopril for now Physician Review Additional Text: Physical Exam General: Alert Oriented x3, fatigued HEENT: Normal conjunctiva, sclera anicteric Respiratory: Mild labored respirations on BiPAP, FiO2 100% Cardiovascular: regular rate/rhythm, no edema Gastrointestinal: Soft, non-tender, non-distended. Integumentary: No rashes Problem list ADITHYA secondary to dehydration, resolved Acute hypoxemic respiratory failure secondary to COVID-19 pneumonia Diabetes mellitus type 2 with hyperglycemia UTI, acute cystitis, treated Hypertension Recurrent falls, weakness Continue steroids, vitamin supplementation. Status post Regeneron in ED, and 1 dose of moderna vaccine 1 week ago Pulmonology is following. Repeat blood culture: No growth. Discontinued antibiotics earlier, and merrem restarted 05/06 due to worsening CRP, worsening clinical status Wean oxygen as tolerated ADITHYA resolved Continue insulin sliding scale and Lantus. held due to inabiltiy to eat transferred to ICU for closer monitoring on 05/05 hughes cath placed 05/05 discussed need for dobhoff, pt was agreeable but couldn't tolerate it on 05/06, re fusing any further attempts will start PPN with plan to transition to TPN once PICC placed PICC ordered on gentle D5 1/2NS for now VTE: black Code: Full spoke with patient at length 05/04 and again on 05/07, wants to continue with full code, ok with intubation as last resort for now states she will discuss with her daughter further guarded prognosis
[2021-05-07] MEDS ORDERED: DEXTROSE 10%-WATER 500 ML IV SCH (13:00)
[2021-05-07] MEDS: FENOFIBRATE 160 MG TAB PO SCH (17:00)
[2021-05-07] MEDS: ENOXAPARIN 40 MG/0.4 ML SQ SCH (17:47)
[2021-05-07] MEDS: INSULIN GLARGINE 100 UNITS/ML SQ SCH (17:48)
[2021-05-07] MEDS: GABAPENTIN 100 MG CAP PO SCH (21:00)
[2021-05-07] MEDS: AMITRIPTYLINE 50 MG TAB PO SCH (21:00)
[2021-05-07] MEDS: METHYLPREDNISOLONE 40 MG INJ IV SCH (21:27)
[2021-05-08] MEDS: Meropenem 500 MG/100 ML BAG IV SCH ×3 (00:43→16:42)
[2021-05-08] MEDS: AA 4.25 %/D5W/ELECTROLYTES 2,000 ML, Lipids 20% 250 ML with MULTIVITAMINS INJ 10 ML IV SCH ×6 (00:59→16:38)
[2021-05-08 05:09] LABS: Absolute Lymphocytes (CBC) 0.3 K/uL (0.7-4.9); Basophils % 0.3 % (0-1.3); Hematocrit 36.9 % (36.0-45.0); Lymphocytes % 1.5 % (15.3-44.8); MPV 8.7 fL (7.6-11.3); RBC Red Blood Cell Count 4.49 M/uL (3.86-4.86)
[2021-05-08 05:58] LABS: C-Reactive Protein 92.4 mg/L (<3.00); Ferritin 766.2 ng/mL (8-388); Potassium 4.8 mmol/L (3.5-5.1)
[2021-05-08 06:20] LABS: Arterial Blood Carboxyhemoglob 1.1 % (0-1.5); Blood Gas Oxyhemoglobin 80.3 % (94-97); Blood O2 Saturation 82.1 % (92-98.5)
[2021-05-08] MEDS: INSULIN -REGULAR HUMAN 50 UNIT/0.5 ML ML SQ SCH ×3 (06:29→17:20)
--- NOTE | 2021-05-08 07:28 | RAD REPORT ---
EXAM DESCRIPTION: [facility] Single View05/08/2021 7:12 am CLINICAL HISTORY: Shortness of breath COMPARISON: May 07 FINDINGS: No significant change in the diffuse bilateral pulmonary opacities. Heart is normal size. Pneumomediastinum is without significant change. PICC line place IMPRESSION: Pneumomediastinum without significant change No significant change in the diffuse bilateral pulmonary opacities consistent with pneumonia
--- NOTE | 2021-05-08 07:53 | P.PN ---
Subjective Date of Service: 05/08/21 Chief Complaint: Resp failure Subjective: Worsening (patient feels about the same as yesterday, doesn't feel worse. wants to be DNR/DNI) Review of Systems 10-point ROS is otherwise unremarkable Physical Examination - Vital Signs Temperature: 97.1 F Blood Pressure: 135/81 Pulse: 91 Respirations: 28 Pulse Ox (%): 88 Assessment & Plan Physician Review Additional Text: Physical Exam General: Alert Oriented x3, fatigued HEENT: Normal conjunctiva, sclera anicteric Respiratory: Mild labored respirations on BiPAP, FiO2 100% Cardiovascular: regular rate/rhythm, no edema Gastrointestinal: Soft, non-tender, non-distended. Integumentary: No rashes Problem list Acute hypoxemic respiratory failure secondary to COVID-19 pneumonia fungal UTI UTI, acute bacterial cystitis, treated ADITHYA secondary to dehydration, resolved Diabetes mellitus type 2 with hyperglycemia Hypertension Recurrent falls, weakness Continue steroids, vitamin supplementation. Status post Regeneron in ED, and 1 dose of moderna vaccine 1 week ago Pulmonology is following. Repeat blood culture: No growth. Discontinued antibiotics earlier, and merrem restarted 05/06 due to worsening CRP, worsening clinical status, pending cultures, then likely dc UA with yeast, started diflucan 05/06 Wean oxygen as tolerated Continue insulin sliding scale and Lantus. increase on 05/08, PPN started 05/07 transferred to ICU for closer monitoring on 05/05 hughes cath placed 05/05 started PPN on 05/07 with plan to transition to TPN once PICC placed VTE: black Code: Full spoke with patient at length on 05/08, states she has been thinking over the last several days and has decided she wants to be DNR/DNI Daughter updated on 05/08 guarded prognosis Time Spent Managing Pts Care (In Minutes): 35
[2021-05-08] MEDS: PIOGLITAZONE 15 MG TAB PO SCH (08:00)
[2021-05-08 08:21] LABS: Urine Appearance CLEAR (Clear); Urine Bilirubin NEGATIVE (Negative); Urine Blood NEGATIVE (Negative); Urine Color YELLOW (Yellow); Urine Glucose 3+ (Negative); Urine Protein TRACE (Negative); Urine Specific Gravity 1.025 (1.005-1.030)
[2021-05-08 08:22] LABS: Urine Microscopic Reflex ORDER UMIC
[2021-05-08 08:33] LABS: Urine Bacteria <20 /HPF (<20); Urine Mucus 1+ /HPF (NONE SEEN); Urine RBC <5 /HPF (NONE SEEN); Urine Urothelial Cells <5 /HPF (NONE SEEN); Urine Yeast FEW (NONE SEEN)
[2021-05-08] MEDS: BARICITINIB 2 MG TABLET PO SCH (09:00)
[2021-05-08] MEDS: ZINC SULFATE 220 MG CAP PO SCH (09:00)
[2021-05-08] MEDS: ASCORBIC ACID 500 MG TABLET PO SCH ×4 (09:00→20:46)
[2021-05-08] MEDS: ASPIRIN EC 81 MG TAB PO SCH (09:00)
[2021-05-08] MEDS: THIAMINE HCL 100 MG TABLET PO SCH (09:00)
[2021-05-08] MEDS: VITAMIN D 1000 UNIT TAB PO SCH (09:00)
[2021-05-08] MEDS: METOPROLOL TAR 50 MG TAB PO SCH (09:00)
[2021-05-08] MEDS: INSULIN GLARGINE 100 UNITS/ML SQ SCH (09:54)
[2021-05-08] MEDS: FLUCONAZOLE 400 MG IVPB 400 MG/200 ML BAG IV SCH (09:56)
[2021-05-08] MEDS: METHYLPREDNISOLONE 40 MG INJ IV SCH ×2 (09:59→20:44)
--- NOTE | 2021-05-08 11:39 | P.PN ---
Subjective Date of Service: 05/08/21 Chief Complaint: Resp failure Patient is alert responsive requiring significant amount of oxygen Review of Systems General: Weakness Respiratory: Shortness of Breath Physical Examination - Vital Signs Temperature: 97.1 F Blood Pressure: 128/75 Pulse: 91 Respirations: 28 Pulse Ox (%): 91 - Physical Exam General: Alert, Oriented x3, Cooperative Assessment & Plan - Problems (Diagnosis) (1) Pneumonia due to COVID-19 virus Current Visit: Yes Status: Acute Plan: Respiratory failure respiratory failure subjectively feeling better still 100% still on 100% FiO2 white count is white count is still elevated patient chest x- ray does not show any significant change/labs reviewed
[2021-05-08] MEDS: FUROSEMIDE 20 MG/ 2ML VIAL IV SCH (12:24)
--- NOTE | 2021-05-08 13:38 | RAD REPORT ---
EXAM DESCRIPTION: RADChest Single View05/07/2021 10:45 pm ADDENDUM #1 THIS REPORT CONTAINS FINDINGS THAT MAY BE CRITICAL TO PATIENT CARE: Called, telephoned, verbal repo rt was given oral to Song Cueva registered nurse at 11:36 PM CDT on 05/07/2021. Electronically signed by: Dadnre Whalen MD 05/07/2021 11:48 PM CDT End of Addendum EXAM DESCRIPTION: Chest Single View 05/07/2021 10:55 PM CDT CLINICAL HISTORY: 65 years, Female, S/P PICC insertion COMPARISON: None FINDINGS: Single view of the chest was obtained portable. No prior films are available for compariso n. There is a right upper activity PICC line tip of the catheter within the cavoatrial junction area. The film is rotated towards the right. Lucencies within the pericardium and mediastinum could sugges t the possibility of pneumomediastinum/pneumopericardium and questionable small sliver of a pneumotho rax. There is small trace of subcutaneous air within the left upper neck. The heart is not enlarged. The thoracic aorta is unremarkable. Diffuse increased interstitial densiti es could correspond to viral pneumonia/Covid 19 pneumonia. There are no significant pleural effusions . The rest of the soft tissue and bony structures demonstrate to be unremarkable. IMPRESSION: Right upper extremity PICC line tip within the cavoatrial junction area. Lucencies within the pericardium and mediastinum could suggest the possibility of pneumomediastinum/p neumopericardium and questionable small sliver of a pneumothorax. Diffuse increased interstitial densities could correspond to viral pneumonia/Covid pneumonia. Electronically signed by: Dandre Whalen MD 05/07/2021 11:32 PM CDT Due to temporary technical issues with the PACS/Fluency reporting system, reports are being signed by the in house radiologists without review as a courtesy to insure prompt reporting. The interpreting radiologist is fully responsible for the content of the report.
[2021-05-08] MEDS ORDERED: INSULIN GLARGINE 100 UNITS/ML SQ SCH (16:30)
[2021-05-08] MEDS: ENOXAPARIN 40 MG/0.4 ML SQ SCH (16:42)
[2021-05-08] MEDS: FENOFIBRATE 160 MG TAB PO SCH (16:42)
[2021-05-08] MEDS ORDERED: MORPHINE 2 MG/ML SYR IM PRN (16:56)
[2021-05-08] MEDS ORDERED: INSULIN -REGULAR HUMAN 50 UNIT/0.5 ML ML SQ SCH (18:00)
[2021-05-08] MEDS ORDERED: LORAZEPAM 1 MG TABLET PO PRN (18:11)
--- NOTE | 2021-05-08 18:17 | RAD REPORT ---
EXAM DESCRIPTION: Kayleigh Single View05/08/2021 5:23 pm CLINICAL HISTORY: Shortness breath COMPARISON: May 08, 2021 FINDINGS: Pneumomediastinum and bilateral subcutaneous emphysema. Curvilinear density present within each upper hemithorax equivocal for small pneumothorax. Mild worsening in left and mild improvement in right pulmonary opacities. Heart is normal size IMPRESSION: Pneumomediastinum and bilateral subcutaneous emphysema Equivocal small bilateral pneumothoraces Mild worsening in left been mild improvement in right pulmonary opacities
[2021-05-08] MEDS: LORazepam 2 MG/ML VIAL IV PRN (18:42)
[2021-05-08] MEDS: HYDROMORPHONE HCL 1 MG/ML INJ IV PRN ×2 (18:42→23:50)
[2021-05-08] MEDS: GABAPENTIN 100 MG CAP PO SCH (20:44)
[2021-05-08] MEDS: AMITRIPTYLINE 50 MG TAB PO SCH (20:44)
[2021-05-09] MEDS: Meropenem 500 MG/100 ML BAG IV SCH ×3 (00:06→16:46)
[2021-05-09] MEDS: INSULIN -REGULAR HUMAN 50 UNIT/0.5 ML ML SQ SCH ×4 (00:06→16:47)
[2021-05-09 06:16] LABS: Absolute Lymphocytes (CBC) 0.2 K/uL (0.7-4.9); Basophils % 0.2 % (0-1.3); Hematocrit 37.9 % (36.0-45.0); MPV 8.9 fL (7.6-11.3); RBC Red Blood Cell Count 4.59 M/uL (3.86-4.86)
--- NOTE | 2021-05-09 06:21 | P.PN ---
Subjective Date of Service: 05/09/21 Chief Complaint: Resp failure Subjective: Worsening (Patient more tired today, with more subcutaneous emphysema. States she does not want a chest tube, does not want to be intubated) Review of Systems 10-point ROS is otherwise unremarkable Physical Examination - Vital Signs Temperature: 97 F Blood Pressure: 124/72 Pulse: 103 Respirations: 15 Pulse Ox (%): 87 Assessment & Plan Physician Review Additional Text: Physical Exam General: Alert Oriented x3, fatigued HEENT: +large subcutaneous emphysema in upper chest wall / neck Respiratory: moderate labored respirations on BiPAP, FiO2 100% Cardiovascular: regular rate/rhythm Gastrointestinal: Soft, non-tender, non-distended. Integumentary: No rashes Problem list Acute hypoxemic respiratory failure secondary to COVID-19 pneumonia fungal UTI UTI, acute bacterial cystitis, treated ADITHYA secondary to dehydration, resolved Diabetes mellitus type 2 with hyperglycemia Hypertension Recurrent falls, weakness Continue steroids, vitamin supplementation. Status post Regeneron in ED, and 1 dose of moderna vaccine 1 week ago Pulmonology is following. Repeat blood culture: No growth. Discontinued antibiotics earlier, and merrem restarted 05/06 due to worsening CRP, worsening clinical status UA with yeast, started diflucan 05/06 Wean oxygen as tolerated Continue insulin sliding scale and Lantus. increase on 05/08, PPN started 05/07 transferred to ICU for closer monitoring on 05/05 hughes cath placed 05/05 started PPN on 05/07 with plan to transition to TPN after PICC VTE: black Code: Full spoke with patient at length on 05/08, states she has been thinking over the last several days and has decided she wants to be DNR/DNI Daughter updated on 05/08 05/08 and 05/09 patient states she would not want a chest tube if a pneumothorax dev eloped. Understands her breathing would get harder and may guarded prognosis Time Spent Managing Pts Care (In Minutes): 40
[2021-05-09] MEDS: LORazepam 2 MG/ML VIAL IV PRN ×3 (06:30→16:46)
[2021-05-09 06:46] LABS: C-Reactive Protein 58.6 mg/L (<3.00); Ferritin 780.7 ng/mL (8-388); Potassium 5.3 mmol/L (3.5-5.1)
--- NOTE | 2021-05-09 07:32 | RAD REPORT ---
EXAM DESCRIPTION: RAD - Chest Single View - 05/09/2021 6:44 am CLINICAL HISTORY: Eval for pneumothorax COMPARISON: Chest Single View dated 05/08/2021; Chest Single View dated 05/08/2021; Chest Single View da blu 05/07/2021; Chest Single View dated 05/07/2021 FINDINGS: Lines: Right subclavian approach PICC with tip overlying the SVC. Lungs: Widespread bilateral airspace disease without significant change from prior. Pleural: No significant pleural effusions or pneumothorax. Cardiac: Cardiomegaly. Bones: No acute fractures. Other: Subcutaneous emphysema, pneumomediastinum and trace right-sided pneumothorax. IMPRESSION: Similar widespread airspace disease concerning for multifocal pneumonia. Trace right pne umothorax, subcutaneous emphysema, and pneumomediastinum is similar.
[2021-05-09] MEDS: METHYLPREDNISOLONE 40 MG INJ IV SCH ×2 (07:46→21:09)
[2021-05-09] MEDS: FUROSEMIDE 20 MG/ 2ML VIAL IV SCH (07:47)
[2021-05-09] MEDS: INSULIN GLARGINE 100 UNITS/ML SQ SCH ×2 (07:47→16:47)
[2021-05-09] MEDS: VITAMIN D 1000 UNIT TAB PO SCH (07:48)
[2021-05-09] MEDS: ASPIRIN EC 81 MG TAB PO SCH (07:48)
[2021-05-09] MEDS: METOPROLOL TAR 50 MG TAB PO SCH (07:48)
[2021-05-09] MEDS: BARICITINIB 2 MG TABLET PO SCH (07:48)
[2021-05-09] MEDS: ASCORBIC ACID 500 MG TABLET PO SCH ×4 (07:48→21:00)
[2021-05-09] MEDS: ZINC SULFATE 220 MG CAP PO SCH (07:48)
[2021-05-09] MEDS: PIOGLITAZONE 15 MG TAB PO SCH (07:48)
[2021-05-09] MEDS: THIAMINE HCL 100 MG TABLET PO SCH (07:48)
[2021-05-09] MEDS: FLUCONAZOLE 400 MG IVPB 400 MG/200 ML BAG IV SCH (07:49)
[2021-05-09 09:37] LABS: Blood Morphology Comment NOT SEEN (NOT SEEN); Platelet Estimate ADEQ; White Blood Cell Scan OK (OK)
[2021-05-09] MEDS: HYDROMORPHONE HCL 1 MG/ML INJ IV PRN ×3 (10:25→21:09)
[2021-05-09] MEDS: AA 4.25 %/D5W/ELECTROLYTES 2,000 ML, Lipids 20% 250 ML with MULTIVITAMINS INJ 10 ML IV SCH ×3 (16:45)
[2021-05-09] MEDS: ENOXAPARIN 40 MG/0.4 ML SQ SCH (16:46)
[2021-05-09] MEDS: FENOFIBRATE 160 MG TAB PO SCH (16:47)
--- NOTE | 2021-05-09 18:36 | P.PN ---
Subjective Date of Service: 05/09/21 Chief Complaint: Resp failure Not responsive hypoxic DNR Review of Systems is unable to be obtained Physical Examination - Vital Signs Temperature: 96.9 F Blood Pressure: 102/63 Pulse: 92 Respirations: 17 Pulse Ox (%): 72 - Physical Exam General: Unresponsive Assessment & Plan - Problems (Diagnosis) (1) Pneumonia due to COVID-19 virus Current Visit: Yes Status: Acute Plan: Resp failur eAMS very hypoxic/ SQ emphysema and pneumomediastinum, DNR prognosis poor/labs rev/ on max therapy porg poor
[2021-05-09] MEDS: GABAPENTIN 100 MG CAP PO SCH (21:00)
[2021-05-09] MEDS: AMITRIPTYLINE 50 MG TAB PO SCH (21:00)
[2021-05-10] MEDS: INSULIN -REGULAR HUMAN 50 UNIT/0.5 ML ML SQ SCH ×5 (00:44→23:58)
[2021-05-10] MEDS: Meropenem 500 MG/100 ML BAG IV SCH ×3 (00:45→16:25)
[2021-05-10] MEDS: HYDROMORPHONE HCL 1 MG/ML INJ IV PRN ×4 (02:54→20:29)
[2021-05-10 05:33] LABS: Absolute Lymphocytes (CBC) 0.2 K/uL (0.7-4.9); Basophils % 0.2 % (0-1.3); Lymphocytes % 1.7 % (15.3-44.8); MPV 8.2 fL (7.6-11.3); RBC Red Blood Cell Count 4.26 M/uL (3.86-4.86)
[2021-05-10 05:55] LABS: BUN Blood Urea Nitrogen 49 mg/dL (7-18); Bicarbonate 36 mmol/L (21-32); Glucose Level 294 mg/dL (74-106); Potassium 5.5 mmol/L (3.5-5.1); Sodium Level 135 mmol/L (136-145)
[2021-05-10] MEDS: LORazepam 2 MG/ML VIAL IV PRN ×4 (05:57→20:28)
[2021-05-10] MEDS: PIOGLITAZONE 15 MG TAB PO SCH (08:00)
[2021-05-10] MEDS: FLUCONAZOLE 400 MG IVPB 400 MG/200 ML BAG IV SCH (08:05)
[2021-05-10] MEDS: METHYLPREDNISOLONE 40 MG INJ IV SCH ×2 (08:06→20:28)
[2021-05-10] MEDS: FUROSEMIDE 20 MG/ 2ML VIAL IV SCH (08:06)
[2021-05-10] MEDS: ASPIRIN EC 81 MG TAB PO SCH (08:11)
[2021-05-10] MEDS: INSULIN GLARGINE 100 UNITS/ML SQ SCH ×2 (08:12→17:15)
[2021-05-10] MEDS: METOPROLOL TAR 50 MG TAB PO SCH (08:15)
[2021-05-10] MEDS: BARICITINIB 2 MG TABLET PO SCH (08:16)
[2021-05-10] MEDS: THIAMINE HCL 100 MG TABLET PO SCH (08:16)
[2021-05-10] MEDS: ZINC SULFATE 220 MG CAP PO SCH (08:16)
[2021-05-10] MEDS: ASCORBIC ACID 500 MG TABLET PO SCH ×4 (08:16→20:05)
[2021-05-10] MEDS: VITAMIN D 1000 UNIT TAB PO SCH (08:16)
--- NOTE | 2021-05-10 09:04 | RAD REPORT ---
EXAM DESCRIPTION: Kayleigh Single View05/10/2021 6:34 am CLINICAL HISTORY: Chest pain COMPARISON: July 09, 2021 FINDINGS: No significant change in bilateral pulmonary opacities. PICC line in place Subcutaneous emphysema appears resolved. Pneumomediastinum diminished. Pneumothoraces either resolved or tiny IMPRESSION: No significant change in the bilateral pulmonary opacities Pneumothoraces either resolved or tiny
[2021-05-10] MEDS: FENOFIBRATE 160 MG TAB PO SCH (16:25)
[2021-05-10] MEDS: AA 4.25 %/D5W/ELECTROLYTES 2,000 ML, Lipids 20% 250 ML with MULTIVITAMINS INJ 10 ML IV SCH ×3 (16:25)
[2021-05-10] MEDS: ENOXAPARIN 40 MG/0.4 ML SQ SCH (16:25)
--- NOTE | 2021-05-10 16:33 | P.PN ---
Subjective Date of Service: 05/10/21 Chief Complaint: Resp failure Subjective: Worsening (More hypoxic, reports she is tired, and again states she does not want a chest tube (if needed), does not want to be intubated) Review of Systems is unable to be obtained Physical Examination - Vital Signs Temperature: 98 F Blood Pressure: 136/90 Pulse: 103 Respirations: 22 Pulse Ox (%): 65 Assessment & Plan Physician Review Additional Text: Physical Exam General: Awake, very fatigued, obese HEENT: Improvement in subcutaneous emphysema, BiPAP mask in place Respiratory: moderate labored respirations on BiPAP, FiO2 100% Cardiovascular: Mild sinus tachycardia Gastrointestinal: Soft, non-tender, non-distended. Integumentary: No rashes Problem list Acute hypoxemic respiratory failure secondary to COVID-19 pneumonia fungal UTI UTI, acute bacterial cystitis, treated ADITHYA secondary to dehydration, resolved Diabetes mellitus type 2 with hyperglycemia Hypertension Recurrent falls, weakness Continue steroids, vitamin supplementation. Status post Regeneron in ED, and 1 dose of moderna vaccine 1 week ago Pulmonology is following. Repeat blood culture: No growth. Discontinued antibiotics earlier, and merrem restarted 05/06 due to worsening CRP, worsening clinical status UA with yeast, started diflucan 05/06 Wean oxygen as tolerated Continue insulin sliding scale and Lantus. increase on 05/08, PPN started 05/07. transferred to ICU for closer monitoring on 05/05 hughes cath placed 05/05 started PPN on 05/07 with plan to transition to TPN after PICC (refuses Dobbhoff) Patient remains hypoxic in the 60s70s throughout most of the past 48 hours VTE: eliquis Code: Full spoke with patient at length on 05/08, states she has been thinking over the last several days and has decided she wants to be DNR/DNI 05/08 and 05/09 patient states she would not want a chest tube if a pneumothorax developed. Understands her breathing would get harder and may guarded prognosis Daughter updated daily, last updated evening of 05/09 that patient may pass away in the next 24-48hrs. She is aware/understands Time Spent Managing Pts Care (In Minutes): 45
[2021-05-10] MEDS: GABAPENTIN 100 MG CAP PO SCH (20:03)
[2021-05-10] MEDS: AMITRIPTYLINE 50 MG TAB PO SCH (20:03)
[2021-05-11] MEDS: Meropenem 500 MG/100 ML BAG IV SCH ×3 (00:04→16:20)
[2021-05-11] MEDS: HYDROMORPHONE HCL 1 MG/ML INJ IV PRN ×5 (03:35→20:45)
[2021-05-11 05:38] LABS: Absolute Lymphocytes (CBC) 0.2 K/uL (0.7-4.9); Basophils % 0.4 % (0-1.3); Hematocrit 36.9 % (36.0-45.0); Lymphocytes % 1.9 % (15.3-44.8); MPV 8.6 fL (7.6-11.3)
[2021-05-11 05:46] LABS: BUN Blood Urea Nitrogen 46 mg/dL (7-18); Bicarbonate 37 mmol/L (21-32); Ferritin 787.5 ng/mL (8-388); Glucose Level 189 mg/dL (74-106); Magnesium 2.3 mg/dL (1.8-2.4); Sodium Level 134 mmol/L (136-145)
[2021-05-11] MEDS: INSULIN -REGULAR HUMAN 50 UNIT/0.5 ML ML SQ SCH ×3 (05:57→17:39)
--- NOTE | 2021-05-11 07:57 | RAD REPORT ---
EXAM DESCRIPTION: RAD - Chest Single View - 05/11/2021 5:50 am CLINICAL HISTORY: Eval for pneumothorax COMPARISON: Chest Single View dated 05/10/2021; Chest Single View dated 05/09/2021; Chest Single View da blu 05/08/2021; Chest Single View dated 05/08/2021 FINDINGS: Lines: Right subclavian approach PICC with tip overlying the SVC. Lungs: Slight decreased lung volumes are otherwise unchanged widespread bilateral airspace disease Pleural: Possible small right apical pneumothorax. Cardiac: Cardiomegaly Bones: No acute fractures. Other: IMPRESSION: Mild decreased lung volumes with similar widespread bilateral airspace disease consisten t with multifocal pneumonia. Small right apical pneumothorax difficult to exclude.
[2021-05-11] MEDS: PIOGLITAZONE 15 MG TAB PO SCH (08:00)
[2021-05-11] MEDS: INSULIN GLARGINE 100 UNITS/ML SQ SCH (08:37)
[2021-05-11] MEDS: ASPIRIN EC 81 MG TAB PO SCH (08:38)
[2021-05-11] MEDS: METOPROLOL TAR 50 MG TAB PO SCH (08:38)
[2021-05-11] MEDS: METHYLPREDNISOLONE 40 MG INJ IV SCH ×2 (08:38→20:46)
[2021-05-11] MEDS: BARICITINIB 2 MG TABLET PO SCH (08:38)
[2021-05-11] MEDS: FLUCONAZOLE 400 MG IVPB 400 MG/200 ML BAG IV SCH (08:38)
[2021-05-11] MEDS: VITAMIN D 1000 UNIT TAB PO SCH (08:39)
[2021-05-11] MEDS: LORazepam 2 MG/ML VIAL IV PRN ×4 (08:39→20:46)
[2021-05-11] MEDS: THIAMINE HCL 100 MG TABLET PO SCH (08:39)
[2021-05-11] MEDS: ASCORBIC ACID 500 MG TABLET PO SCH ×4 (08:39→20:47)
[2021-05-11] MEDS: ZINC SULFATE 220 MG CAP PO SCH (08:39)
[2021-05-11 09:47] VITALS: O2SAT 70
--- NOTE | 2021-05-11 11:53 | P.PN ---
Subjective Date of Service: 05/11/21 Chief Complaint: Resp failure Patient is not not doing well very hypoxic refused intubation saturations very low unresponsive Review of Systems is unable to be obtained Physical Examination - Vital Signs Temperature: 97.9 F Blood Pressure: 124/77 Pulse: 95 Respirations: 24 Pulse Ox (%): 71 Assessment & Plan - Problems (Diagnosis) (1) Pneumonia due to COVID-19 virus Current Visit: Yes Status: Acute Plan: Respiratory failure patient very hypoxic prognosis very poor may try high flow today extensive pneumonia extensive pneumonia no change prognosis very poor
--- NOTE | 2021-05-11 14:02 | P.PN ---
Subjective Date of Service: 05/11/21 Chief Complaint: Resp failure Patient condition is declining. She is somnolent on CPAP with labored breathing and hypoxic. Physical Examination - Vital Signs Temperature: 97.9 F Blood Pressure: 103/49 Pulse: 97 Respirations: 20 Pulse Ox (%): 35 - Physical Exam General: Unresponsive HEENT: Other (BiPAP) Respiratory: Other (Labored breathing) Cardiovascular: Edema (Bilateral lower extremity) Gastrointestinal: Soft and benign, Non-distended Musculoskeletal: No swelling Integumentary: No rashes Neurological: Other (Unresponsive) Assessment And Plan Physician Review Additional Text: Physical Exam General: Awake, very fatigued, obese HEENT: Improvement in subcutaneous emphysema, BiPAP mask in place Respiratory: moderate labored respirations on BiPAP, FiO2 100% Cardiovascular: Mild sinus tachycardia Gastrointestinal: Soft, non-tender, non-distended. Integumentary: No rashes Problem list Acute hypoxemic respiratory failure secondary to COVID-19 pneumonia fungal UTI UTI, acute bacterial cystitis, treated ADITHYA secondary to dehydration, resolved Diabetes mellitus type 2 with hyperglycemia Hypertension Recurrent falls, weakness Continue steroids, vitamin supplementation. Status post Regeneron in ED, and 1 dose of moderna vaccine 1 week ago Pulmonology is following. Repeat blood culture: No growth. Merrem restarted 05/06 due to worsening CRP, worsening clinical status UA with yeast, started diflucan 05/06 transferred to ICU for closer monitoring on 05/05 Patient unresponsive and clinically declining SaO2 continue to trend down. Patient is DNI, DNR. No escalation of treatment. Recommend comfort measures. VTE: eliquis Code: Full
[2021-05-11] MEDS: FENOFIBRATE 160 MG TAB PO SCH (15:45)
[2021-05-11] MEDS ORDERED: AA 4.25 %/D5W/ELECTROLYTES 2,000 ML, WATER FOR INJ,STERILE 250 ML with MULTIVITAMINS IN... IV SCH ×6 (17:00)
[2021-05-11] MEDS: ENOXAPARIN 100 MG/ML SYR SQ SCH (20:46)
[2021-05-11] MEDS: AMITRIPTYLINE 50 MG TAB PO SCH (20:46)
[2021-05-11] MEDS: GABAPENTIN 100 MG CAP PO SCH (20:47)
[2021-05-11] MEDS ORDERED: Enoxaparin 120 MG/0.8 ML SYR SQ SCH (21:00)
[2021-05-12] MEDS: Meropenem 500 MG/100 ML BAG IV SCH ×3 (00:32→17:23)
[2021-05-12] MEDS: INSULIN -REGULAR HUMAN 50 UNIT/0.5 ML ML SQ SCH ×5 (00:46→23:20)
[2021-05-12] MEDS: HYDROMORPHONE HCL 1 MG/ML INJ IV PRN ×5 (03:50→22:49)
[2021-05-12 04:44] LABS: Absolute Lymphocytes (CBC) 0.2 K/uL (0.7-4.9); Basophils % 0.7 % (0-1.3); Hematocrit 36.3 % (36.0-45.0); Lymphocytes % 1.7 % (15.3-44.8); MPV 8.2 fL (7.6-11.3); RBC Red Blood Cell Count 4.44 M/uL (3.86-4.86)
[2021-05-12 05:42] LABS: BUN Blood Urea Nitrogen 41 mg/dL (7-18); Bicarbonate 38 mmol/L (21-32); C-Reactive Protein 7.77 mg/L (<3.00); Ferritin 798.8 ng/mL (8-388); Glucose Level 217 mg/dL (74-106); Potassium 5.5 mmol/L (3.5-5.1); Sodium Level 132 mmol/L (136-145)
--- NOTE | 2021-05-12 07:17 | RAD REPORT ---
EXAM DESCRIPTION: Kayleigh Single View05/12/2021 6:12 am CLINICAL HISTORY: Chest pain COMPARISON: May 11, 2021 FINDINGS: No significant change extensive bilateral pulmonary opacities. A pneumothorax is not seen. PICC line place. Heart remains enlarged IMPRESSION: No significant change in the diffuse bilateral pulmonary opacities
[2021-05-12] MEDS: PIOGLITAZONE 15 MG TAB PO SCH (07:39)
[2021-05-12] MEDS: METOPROLOL TAR 50 MG TAB PO SCH (07:39)
[2021-05-12] MEDS: ASPIRIN EC 81 MG TAB PO SCH (07:39)
[2021-05-12] MEDS: LORazepam 2 MG/ML VIAL IV PRN ×3 (07:41→22:49)
[2021-05-12] MEDS: ENOXAPARIN 100 MG/ML SYR SQ SCH ×2 (08:01→21:00)
[2021-05-12] MEDS: FLUCONAZOLE 400 MG IVPB 400 MG/200 ML BAG IV SCH (08:02)
[2021-05-12] MEDS: ASCORBIC ACID 500 MG TABLET PO SCH ×4 (09:00→21:00)
[2021-05-12] MEDS: ZINC SULFATE 220 MG CAP PO SCH (09:00)
[2021-05-12] MEDS: BARICITINIB 2 MG TABLET PO SCH (09:00)
[2021-05-12] MEDS: VITAMIN D 1000 UNIT TAB PO SCH (09:00)
[2021-05-12] MEDS: THIAMINE HCL 100 MG TABLET PO SCH (09:00)
[2021-05-12] MEDS: METHYLPREDNISOLONE 40 MG INJ IV SCH ×2 (10:41→21:00)
[2021-05-12 11:13] LABS: Arterial Blood Carboxyhemoglob 1.5 % (0-1.5); Blood Gas Oxyhemoglobin 60.4 % (94-97)
[2021-05-12] MEDS ORDERED: FUROSEMIDE 20 MG/ 2ML VIAL IV ONE (11:16)
--- NOTE | 2021-05-12 11:17 | P.PN ---
Subjective Date of Service: 05/12/21 Chief Complaint: Resp failure Patient is not not doing well very hypoxic refused intubation saturations very low unresponsive/ ABG vrey low Po2 Review of Systems is unable to be obtained Physical Examination - Vital Signs Temperature: 96.4 F Blood Pressure: 114/67 Pulse: 78 Respirations: 18 Pulse Ox (%): 65 - Physical Exam General: Unresponsive Assessment & Plan - Problems (Diagnosis) (1) Pneumonia due to COVID-19 virus Current Visit: Yes Status: Acute Plan: Respiratory failure patient very hypoxic prognosis very poor/ ABG rev/ Lasix
--- NOTE | 2021-05-12 13:10 | P.PN ---
Subjective Date of Service: 05/12/21 Chief Complaint: Resp failure Patient condition is declining and she is dying She is somnolent on CPAP with labored breathing and hypoxic. PO2 of 33. Physical Examination - Vital Signs Temperature: 96.4 F Blood Pressure: 114/67 Pulse: 78 Respirations: 18 Pulse Ox (%): 65 - Physical Exam General: Unresponsive HEENT: Other (BiPAP) Respiratory: Other (Labored breathing) Cardiovascular: Regular rate/rhythm, Normal S1 S2 Gastrointestinal: Soft and benign, Non-distended Musculoskeletal: No swelling Neurological: Other (Unresponsive) Assessment And Plan Physician Review Additional Text: Problem list Acute hypoxemic respiratory failure secondary to COVID-19 pneumonia fungal UTI UTI, acute bacterial cystitis, treated ADITHYA secondary to dehydration, resolved Diabetes mellitus type 2 with hyperglycemia Hypertension Recurrent falls, weakness Patient is dying. Continue current medications. IV opioids p.r.n. for dyspnea and comfort Pulmonology is following. Continue current antibiotics UA with yeast, started diflucan 05/06 SaO2 continue to trend down. Patient is DNI, DNR. No escalation of treatment. VTE: eliquis Code: Full
[2021-05-12] MEDS: FENOFIBRATE 160 MG TAB PO SCH (15:20)
[2021-05-12] MEDS: AA 4.25 %/D5W/ELECTROLYTES 2,000 ML, Lipids 20% 250 ML with MULTIVITAMINS INJ 10 ML IV SCH ×3 (17:52)
[2021-05-12] MEDS: AMITRIPTYLINE 50 MG TAB PO SCH (21:00)
[2021-05-12] MEDS: GABAPENTIN 100 MG CAP PO SCH (21:00)
[2021-05-13 00:21] VITALS: TEMP 97
[2021-05-13] MEDS: Meropenem 500 MG/100 ML BAG IV SCH (01:11)
[2021-05-13] MEDS: LORazepam 2 MG/ML VIAL IV PRN (03:59)
[2021-05-13] MEDS: HYDROMORPHONE HCL 1 MG/ML INJ IV PRN (03:59)
[2021-05-13 04:30] VITALS: BP 127/63
--- NOTE | 2021-05-13 12:53 | P.PN ---
Date of Service: 05/13/21 Called to see patient as she was unresponsive. Went to see patient and patient unresponsive and no pulse. Pupils nonreactive and no respirations. Was informed that patient was a DNAR. Time of was 0800. Will notify PCP.
[2021-05-13] MEDS ORDERED: AA 4.25 %/D5W/ELECTROLYTES 2,000 ML with MULTIVITAMINS INJ 10 ML IV SCH ×2 (17:00)
--- NOTE | 2021-05-13 18:20 | P.DS ---
Admission Date: 04/21/21 Discharge Date: 05/13/21 Disposition: Reason for Admission: Resp failure - Problems (1) Acute respiratory failure with hypoxia Status: Acute (2) Morbid obesity Status: Acute (3) Pneumonia due to COVID-19 virus Status: Acute (4) Diabetes mellitus Status: Chronic Qualifiers: Diabetes mellitus type: type 2 Diabetes mellitus sliver former insulin use: without sliver former use Diabetes mellitus complication status: with neurologic complications Diabetes mellitus complication detail: with unspecified neuropathy Qualified Code(s): E11.40 - Type 2 diabetes mellitus with diabetic neuropathy, unspecified Brief History of Present Illness: 65-year-old morbidly obese woman with history of diabetes mellitus type 2, hyp ertension, hyperlipidemia presented to the emergency department for generalized weakness, shortness of breath. Patient tested positive for Covid positive in the ED. She received her first dose of the Moderna vaccine 1 week prior. Blood work suggested ADITHYA. patient does appear very dehydrated. ED provider wishes to admit for further evaluation and management of dehydration, acute kidney injury. CT abdomen and pelvis demonstrated ground-glass opacities in both lower lobes of the lower of the lungs. Patient hospitalized for further management COVID pneumonia and acute renal failure. Hospital Course: Acute hypoxemic respiratory failure secondary to COVID-19 pneumonia fungal UTI UTI, acute bacterial cystitis, treated ADITHYA secondary to dehydration, resolved Diabetes mellitus type 2 with hyperglycemia Hypertension Recurrent falls, weakness Patient admitted to the medical floor. Noted she received Regeneron in ED. She was hydrated with IV fluids for the acute renal failure. UA also suggested the presence of UTI. Patient treated with antibiotics. The COVID pneumonia got worse, patient developed acute respiratory failure and required high-flow oxygen. She was subsequently transferred to the ICU for worsening condition. Patient declined intubation and requested for DNR and DNR. She was treated with aggressive antibiotic therapy, IV steroid. Her clinical condition continued to worsen, and she became unresponsive, more hypoxic even on BiPAP. She was placed on comfort measures and eventually . Vital Signs/Physical Exam: Temp Pulse Resp BP Pulse Ox 97 F 88 28 H 127/63 50 L 05/13/21 06:00 05/13/21 06:00 05/13/21 06:00 05/13/21 06:00 05/13/21 06:00 Laboratory Data at Discharge: WBC 13.40 K/uL (4.3-10.9) H 05/12/21 04:25 Hgb 11.7 g/dL (12.0-15.0) L 05/12/21 04:25 Hct 36.3 % (36.0-45.0) 05/12/21 04:25 Plt Count 106 K/uL (152-406) L 05/12/21 04:25 PT 12.0 SECONDS (9.5-12.5) 04/20/21 17:45 INR 1.04 04/20/21 17:45 APTT 28.9 SECONDS (24.3-36.9) 04/20/21 17:45 Sodium 132 mmol/L (136-145) L 05/12/21 04:25 Potassium 5.5 mmol/L (3.5-5.1) H 05/12/21 04:25 BUN 41 mg/dL (7-18) H 05/12/21 04:25 Creatinine 0.59 mg/dL (0.55-1.3) 05/12/21 04:25 Glucose 217 mg/dL (74-106) H 05/12/21 04:25 Uric Acid 5.5 mg/dL (2.6-6.0) 04/22/21 05:01 Phosphorus 2.3 mg/dL (2.5-4.9) L 04/27/21 03:23 Magnesium 2.3 mg/dL (1.8-2.4) 05/11/21 04:05 Total Bilirubin 0.6 mg/dL (0.2-1.0) 05/05/21 03:10 AST 21 U/L (15-37) 05/05/21 03:10 ALT 35 U/L (12-78) 05/05/21 03:10 Alkaline Phosphatase 111 U/L (45-117) 05/05/21 03:10 Triglycerides 135 mg/dL (<150) 04/21/21 02:16 Cholesterol 69 mg/dL (<200) 04/21/21 02:16 HDL Cholesterol 16 mg/dL (40-60) L 04/21/21 02:16 Cholesterol/HDL Ratio 4.31 04/21/21 02:16 Lipase Cancelled 04/20/21 21:54 Home Medications: Amitriptyline [Elavil*] 100 mg PO BEDTIME 11/09/18 Glimepiride [Amaryl*] 4 mg PO BID 11/09/18 Metformin ER [Glucophage ER*] 1,000 mg PO BID 11/09/18 Metoprolol Tartrate [Lopressor*] 50 mg PO DAILY 11/09/18 Atorvastatin Calcium [Lipitor*] 80 mg PO BEDTIME 03/02/19 Pioglitazone HCl 45 mg PO DAILY 03/02/19 Furosemide 20 mg PO DAILYPRN PRN 04/21/21 lisinopriL [Prinivil*] 40 mg PO DAILY 04/21/21 Followup: Gogo Johnston, RN [Primary Care Provider] -
== END 2021-05-13 09:21 | disposition expired | DRG 177 ==
LOC: ER 15:58 → ERHOLD 04-21 00:18 → OBSVTOIN 04-21 12:23 → 4TH 04-21 14:15 → 3RD-ICU 05-05 20:46 → 4TH 05-12 20:37
PROVIDERS: ADMIT Hospitalist; ATTEND Internal Medicine
PROC: 5A09357 Assistance with Respiratory Ventilation, Less than 24 Consecutive Hours, Continuous Positive Airway Pressure (ICD-10-PCS; principal; 2021-05-02)
PROC: 0T9B70Z Drainage of Bladder with Drainage Device, Via Natural or Artificial Opening (ICD-10-PCS; 2021-05-05)
DX: U07.1 COVID-19 (principal); J12.82 Pneumonia due to coronavirus disease 2019; J96.01 Acute respiratory failure with hypoxia; N17.9 Acute kidney failure, unspecified; E87.1 Hypo-osmolality and hyponatremia; N30.00 Acute cystitis without hematuria; E11.9 Type 2 diabetes mellitus without complications; I10 Essential (primary) hypertension; E78.5 Hyperlipidemia, unspecified; K21.9 Gastro-esophageal reflux disease without esophagitis; E86.0 Dehydration; E11.65 Type 2 diabetes mellitus with hyperglycemia; E11.40 Type 2 diabetes mellitus with diabetic neuropathy, unspecified; F03.90 Unspecified dementia, unspecified severity, without behavioral disturbance, psychotic disturbance, mood disturbance, and anxiety; E83.39 Other disorders of phosphorus metabolism; E87.6 Hypokalemia; B96.1 Klebsiella pneumoniae [K. pneumoniae] as the cause of diseases classified elsewhere; E66.01 Morbid (severe) obesity due to excess calories; Z68.36 Body mass index [BMI] 36.0-36.9, adult
CPT/HCPCS: 36415; 36569; 70450; 71045; 71250; 72125; 76770; 80048; 80053; 80061; 80069; 80076; 81003; 81015; 82533; 82550; 82570; 82652; 82728; 82805; 82947; 83036; 83605; 83690; 83735; 83930; 83935; 83970; 84132; 84145; 84156; 84165; 84300; 84439; 84443; 84484; 84550; 85025; 85379; 85610; 85730; 86021; 86038; 86140; 86160; 86317; 86430; 86704; 86706; 87040; 87077; 87086; 87088; 87186; 87340; 87389; 87522; 93005; 94003; 94660; 94760; 96365; 96375; 97110; 97112; 97116; 97161; 97530; 99284; G0378; J0692; J0696; J1170; J1450; J1644; J1650; J1815; J1940; J2185; J2270; J2405; J2920; J2930; J3370; J3475; J7030; J7040; J7050; J7799; U0003